=== PATIENT | female | born 1990 | race Caucasian/White ===

== ENCOUNTER 2016-03-09 18:32 | Emergency (ER) | payer MEDICAID ==
--- NOTE | 2016-03-09 19:04 | ER Document Report ---
ED Medical Screen (RME) - General Stated Complaint: POST SURGICAL COMPLICATION Time seen by provider: 19:02 Mode of Arrival: Wheelchair Information source: Patient Notes: 25-year-old female presents to ED for pain and swelling to the left knee, states she had a tendon repair via scope in [place] on Saturday. She is on Percocet 5/325 she's also states she's been keep in her knee elevated and ice as instructed. States the pain is not being relieved with her Percocet. She states knee is warm to touch. I have greeted and performed a rapid initial assessment of this patient. A comprehensive ED assessment and evaluation of the patient, analysis of test results and completion of medical decision making process will be conducted by an additional ED providers. TRAVEL OUTSIDE OF THE [place] IN LAST 30 DAYS: No - Related Data Allergies/Adverse Reactions: aspirin [Aspirin] Allergy (Severe, Verified 12/14/15 02:20) Anaphylaxis azithromycin [From Zithromax] Allergy (Severe, Verified 12/14/15 02:20) Anaphylaxis clindamycin [Clindamycin] Allergy (Severe, Verified 12/14/15 02:20) Anaphylaxis codeine [Codeine] Allergy (Severe, Verified 12/14/15 02:20) Anaphylaxis hydrocodone bitartrate [From Vicodin] Allergy (Severe, Verified 12/14/15 02:20) Anaphylaxis ibuprofen [Ibuprofen] Allergy (Severe, Verified 12/14/15 02:20) Anaphylaxis morphine [Morphine] Allergy (Severe, Verified 12/14/15 02:20) Anaphylaxis Penicillins Allergy (Severe, Verified 12/14/15 02:20) Anaphylaxis propoxyphene napsylate [From Darvocet-N 100] Allergy (Severe, Verified 12/14/15 02:20) Anaphylaxis soy [Soy] Allergy (Severe, Verified 12/14/15 02:20) Anaphylaxis tramadol [Tramadol] Allergy (Severe, Verified 12/14/15 02:20) Anaphylaxis [place] And Derivatives Allergy (Unknown, Verified 12/14/15 02:20) Anaphylaxis tomato [Tomato] Allergy (Unknown, Verified 12/14/15 02:20) Anaphylaxis calcium carbonate [From Aspirin Regimen Esteban/Calcium] Allergy (Verified 02:20) cyclobenzaprine HCl [From Flexeril] Allergy (Verified 12/14/15 02:20) Anaphylaxis latex [Latex] Allergy (Verified 12/14/15 02:20) breaks out in rash Past Medical History - Past Medical History Cardiac Medical History: Denies: Hx Coronary Artery Disease, Hx Heart Attack, Hx Hypertension Pulmonary Medical History: Reports: Hx Asthma - no recent ER visit, Hx Bronchitis, Hx Pneumonia Denies: Hx COPD Neurological Medical History: Reports: Hx Migraine. Denies: Hx Cerebrovascular Accident, Hx Seizures GI Medical History: Reports: Hx Gastroesophageal Reflux Disease Musculoskeltal Medical History: Denies Hx Arthritis Psychiatric Medical History: Reports: Hx Depression Past Surgical History: Reports: Hx Abdominal Surgery, Hx Cholecystectomy, Hx Orthopedic Surgery - ankle x4, Hx Tonsillectomy - Immunizations Immunizations up to date: Yes Hx Diphtheria, Pertussis, Tetanus Vaccination: Yes - 10/12/13
--- NOTE | 2016-03-09 20:39 | ER Document Report ---
ED General - General Chief Complaint: Post Surgical Pain Stated Complaint: POST SURGICAL COMPLICATION Mode of Arrival: Wheelchair Notes: Patient is a 25-year-old female visiting from out of town who presents with concerns of possible infection of her arthroscopic incisional wounds of her left knee. This was done in [place] 4 days ago and she is here in the [place] due to currently visiting friends. States that she had clear drainage from the surgical wounds and was concerned that it may be infected. She was instructed by the nurse call line to come the emergency department for further evaluation. She has had a constant, throbbing pain to the left knee but that this is been unchanged since his surgery. She's been taking Percocet without significant improvement of the pain. Moving the knee worsens the pain. She has not had any spreading redness from the knee, fever or constitutional symptoms. TRAVEL OUTSIDE OF THE [place] IN LAST 30 DAYS: No - Related Data Allergies/Adverse Reactions: aspirin [Aspirin] Allergy (Severe, Verified 12/14/15 02:20) Anaphylaxis azithromycin [From Zithromax] Allergy (Severe, Verified 12/14/15 02:20) Anaphylaxis clindamycin [Clindamycin] Allergy (Severe, Verified 12/14/15 02:20) Anaphylaxis codeine [Codeine] Allergy (Severe, Verified 12/14/15 02:20) Anaphylaxis hydrocodone bitartrate [From Vicodin] Allergy (Severe, Verified 12/14/15 02:20) Anaphylaxis ibuprofen [Ibuprofen] Allergy (Severe, Verified 12/14/15 02:20) Anaphylaxis morphine [Morphine] Allergy (Severe, Verified 12/14/15 02:20) Anaphylaxis Penicillins Allergy (Severe, Verified 12/14/15 02:20) Anaphylaxis propoxyphene napsylate [From Darvocet-N 100] Allergy (Severe, Verified 12/14/15 02:20) Anaphylaxis soy [Soy] Allergy (Severe, Verified 12/14/15 02:20) Anaphylaxis tramadol [Tramadol] Allergy (Severe, Verified 12/14/15 02:20) Anaphylaxis [place] And Derivatives Allergy (Unknown, Verified 12/14/15 02:20) Anaphylaxis tomato [Tomato] Allergy (Unknown, Verified 12/14/15 02:20) Anaphylaxis calcium carbonate [From Aspirin Regimen Esteban/Calcium] Allergy (Verified 02:20) cyclobenzaprine HCl [From Flexeril] Allergy (Verified 12/14/15 02:20) Anaphylaxis latex [Latex] Allergy (Verified 12/14/15 02:20) breaks out in rash NSAIDS (Non-Steroidal Anti-Inflamma Allergy (Verified 03/09/16 19:05) Past Medical History - General Information source: Patient - Social History Smoking Status: Never Smoker Chew tobacco use (# tins/day): No Frequency of alcohol use: None Drug Abuse: None Lives with: Spouse/Significant other Family History: Reviewed & Not Pertinent Patient has suicidal ideation: No Patient has homicidal ideation: No - Past Medical History Cardiac Medical History: Denies: Hx Coronary Artery Disease, Hx Heart Attack, Hx Hypertension Pulmonary Medical History: Reports: Hx Asthma - no recent ER visit, Hx Bronchitis, Hx Pneumonia Denies: Hx COPD Neurological Medical History: Reports: Hx Migraine. Denies: Hx Cerebrovascular Accident, Hx Seizures Renal/ Medical History: Denies: Hx Peritoneal Dialysis GI Medical History: Reports: Hx Gastroesophageal Reflux Disease Musculoskeltal Medical History: Denies Hx Arthritis Psychiatric Medical History: Reports: Hx Depression Past Surgical History: Reports: Hx Abdominal Surgery, Hx Cholecystectomy, Hx Orthopedic Surgery - ankle x4, Hx Tonsillectomy - Immunizations Immunizations up to date: Yes Hx Diphtheria, Pertussis, Tetanus Vaccination: Yes - 10/12/13 Hx Pneumococcal Vaccination: 02/11/13 Review of Systems - Review of Systems Notes: Constitutional: Negative for fever. Cardiovascular: Negative for chest pain. Respiratory: Negative for shortness of breath. Gastrointestinal: Negative for vomiting Musculoskeletal: Negative for back pain. Positive for left knee pain Skin: Negative for rash. Neurological: Negative for weakness or numbness. 10 point ROS negative except as marked above and in HPI. Physical Exam - Vital signs Vitals: Temp Pulse Resp BP Pulse Ox 98.0 F 96 20 136/85 H 98 03/09/16 18:58 03/09/16 18:58 03/09/16 18:58 03/09/16 18:58 03/09/16 18:58 Interpretation: Normal Notes: PHYSICAL EXAMINATION: GENERAL: Well-appearing, well-nourished and in no acute distress. HEAD: Atraumatic, normocephalic. EYES: sclera anicteric, conjunctiva are normal. ENT: Moist mucous membranes. NECK: Normal range of motion LUNGS: Normal work of breathing HEART: 2+ radial pulses bilaterally EXTREMITIES: no pitting or edema. No cyanosis. Well-healed incisional wounds of the left knee without purulent drainage or erythema. NEUROLOGICAL: No focal neurological deficits. Moves all extremities spontaneously and on command. PSYCH: Normal mood, normal affect. SKIN: Warm, Dry, normal turgor, no rashes or lesions noted. Course - Re-evaluation Re-evalutation: 03/10/16 04:25 Patient presents with concerns of possible wound infection after an arthroscopy although there is no evidence of infection on exam. X-ray unremarkable. No significant joint effusion. Full flexion and extension present. Vitals within normal limits. I do not see an indication for further imaging or labs at this time.At this time will discharge with return precautions and follow-up recommendations. Verbal discharge instructions given a the bedside and opportunity for questions given. Medication warnings reviewed. Patient is in agreement with this plan and has verbalized understanding of return precautions and the need for primary care follow-up in the next 24-72 hours. - Vital Signs Vital signs: Temp Pulse Resp BP Pulse Ox 98.0 F 72 16 110/77 98 03/09/16 21:32 03/09/16 21:32 03/09/16 21:32 03/09/16 21:32 03/09/16 21:32 - Diagnostic Test Radiology reviewed: Image reviewed, Reports reviewed Radiology results interpreted by me: 03/10/16 04:26 Left knee x-ray: No acute fracture-dislocation Discharge - Discharge Clinical Impression: Postoperative pain, acute, knee Qualifiers: Laterality: left Qualified Code(s): M25.562 - Pain in left knee Condition: Good Disposition: HOME, SELF-CARE Additional Instructions: Please follow closely with your orthopedic surgeon. Return if you develop a fever greater than 0.4F, spreading redness from the knee wounds, pus from the wounds, increased pain, or any other symptoms that are concerning to you.
[2016-03-09 21:44] VITALS: BP 110/77
== END 2016-03-09 21:45 | disposition home or self-care (01) ==
LOC: ER 18:32
DX: G89.18 Other acute postprocedural pain (principal); M25.562 Pain in left knee; Z88.6 Allergy status to analgesic agent; Z88.3 Allergy status to other anti-infective agents; Z88.0 Allergy status to penicillin; Z91.040 Latex allergy status; Z90.49 Acquired absence of other specified parts of digestive tract
CPT/HCPCS: 99283

== ENCOUNTER 2016-03-12 15:53 | Emergency (ER) | payer MEDICAID ==
--- NOTE | 2016-03-12 16:05 | ER Document Report ---
ED Medical Screen (RME) - General Stated Complaint: KNEE PAIN Notes: Surgery on left knee on Saturday arthroscopic procedure for meniscus and fragment tear. was previously seen on 03/09 states her swelling is the same but the incisions look worse no pain meds I have greeted and performed a rapid initial assessment of this patient. A comprehensive ED assessment and evaluation of the patient, analysis of test results and completion of the medical decision making process will be conducted by additional ED providers. TRAVEL OUTSIDE OF THE [place] IN LAST 30 DAYS: No - Related Data Allergies/Adverse Reactions: aspirin [Aspirin] Allergy (Severe, Verified 03/12/16 16:05) Anaphylaxis azithromycin [From Zithromax] Allergy (Severe, Verified 03/12/16 16:05) Anaphylaxis clindamycin [Clindamycin] Allergy (Severe, Verified 03/12/16 16:05) Anaphylaxis codeine [Codeine] Allergy (Severe, Verified 03/12/16 16:05) Anaphylaxis hydrocodone bitartrate [From Vicodin] Allergy (Severe, Verified 03/12/16 16:05) Anaphylaxis ibuprofen [Ibuprofen] Allergy (Severe, Verified 03/12/16 16:05) Anaphylaxis morphine [Morphine] Allergy (Severe, Verified 03/12/16 16:05) Anaphylaxis Penicillins Allergy (Severe, Verified 03/12/16 16:05) Anaphylaxis propoxyphene napsylate [From Darvocet-N 100] Allergy (Severe, Verified 03/12/16 16:05) Anaphylaxis soy [Soy] Allergy (Severe, Verified 03/12/16 16:05) Anaphylaxis tramadol [Tramadol] Allergy (Severe, Verified 03/12/16 16:05) Anaphylaxis [place] And Derivatives Allergy (Unknown, Verified 03/12/16 16:05) Anaphylaxis tomato [Tomato] Allergy (Unknown, Verified 03/12/16 16:05) Anaphylaxis calcium carbonate [From Aspirin Regimen Esteban/Calcium] Allergy (Verified 16:05) cyclobenzaprine HCl [From Flexeril] Allergy (Verified 03/12/16 16:05) Anaphylaxis latex [Latex] Allergy (Verified 03/12/16 16:05) breaks out in rash NSAIDS (Non-Steroidal Anti-Inflamma Allergy (Verified 03/12/16 16:05) Past Medical History - Past Medical History Cardiac Medical History: Denies: Hx Coronary Artery Disease, Hx Heart Attack, Hx Hypertension Pulmonary Medical History: Reports: Hx Asthma - no recent ER visit, Hx Bronchitis, Hx Pneumonia Denies: Hx COPD Neurological Medical History: Reports: Hx Migraine. Denies: Hx Cerebrovascular Accident, Hx Seizures Renal/ Medical History: Denies: Hx Peritoneal Dialysis GI Medical History: Reports: Hx Gastroesophageal Reflux Disease Musculoskeltal Medical History: Denies Hx Arthritis Psychiatric Medical History: Reports: Hx Depression Past Surgical History: Reports: Hx Abdominal Surgery, Hx Cholecystectomy, Hx Orthopedic Surgery - ankle x4, Hx Tonsillectomy - Immunizations Immunizations up to date: Yes Hx Diphtheria, Pertussis, Tetanus Vaccination: Yes - 10/12/13 Physical Exam - Vital signs Vitals: Temp Pulse Resp BP Pulse Ox 98.0 F 85 16 124/74 98 03/12/16 16:02 03/12/16 16:02 03/12/16 16:02 03/12/16 16:02 03/12/16 16:02 Course - Vital Signs Vital signs: Temp Pulse Resp BP Pulse Ox 98.0 F 85 16 124/74 98 03/12/16 16:02 03/12/16 16:02 03/12/16 16:02 03/12/16 16:02 03/12/16 16:02
--- NOTE | 2016-03-12 17:42 | ER Document Report ---
ED Extremity Problem, Lower - General Chief Complaint: Knee Pain Stated Complaint: KNEE PAIN Time seen by provider: 17:42 Mode of Arrival: Ambulatory Information source: Patient Notes: 25 yo female s/p arthrascopic left knee surgery in [facility]. on 03-07. Flew here on , came to er on 03-09 because of pain, and again today because the stitch 2 sites are burning. No fever. swelling has decreased. Doing her exercises and walking like she is supposed to. TRAVEL OUTSIDE OF THE [place] IN LAST 30 DAYS: No - Related Data Allergies/Adverse Reactions: aspirin [Aspirin] Allergy (Severe, Verified 03/12/16 16:05) Anaphylaxis azithromycin [From Zithromax] Allergy (Severe, Verified 03/12/16 16:05) Anaphylaxis clindamycin [Clindamycin] Allergy (Severe, Verified 03/12/16 16:05) Anaphylaxis codeine [Codeine] Allergy (Severe, Verified 03/12/16 16:05) Anaphylaxis hydrocodone bitartrate [From Vicodin] Allergy (Severe, Verified 03/12/16 16:05) Anaphylaxis ibuprofen [Ibuprofen] Allergy (Severe, Verified 03/12/16 16:05) Anaphylaxis morphine [Morphine] Allergy (Severe, Verified 03/12/16 16:05) Anaphylaxis Penicillins Allergy (Severe, Verified 03/12/16 16:05) Anaphylaxis propoxyphene napsylate [From Darvocet-N 100] Allergy (Severe, Verified 03/12/16 16:05) Anaphylaxis soy [Soy] Allergy (Severe, Verified 03/12/16 16:05) Anaphylaxis tramadol [Tramadol] Allergy (Severe, Verified 03/12/16 16:05) Anaphylaxis [place] And Derivatives Allergy (Unknown, Verified 03/12/16 16:05) Anaphylaxis tomato [Tomato] Allergy (Unknown, Verified 03/12/16 16:05) Anaphylaxis calcium carbonate [From Aspirin Regimen Esteban/Calcium] Allergy (Verified 16:05) cyclobenzaprine HCl [From Flexeril] Allergy (Verified 03/12/16 16:05) Anaphylaxis latex [Latex] Allergy (Verified 03/12/16 16:05) breaks out in rash NSAIDS (Non-Steroidal Anti-Inflamma Allergy (Verified 03/12/16 16:05) Past Medical History - General Information source: Patient - Social History Smoking Status: Never Smoker Chew tobacco use (# tins/day): No Frequency of alcohol use: None Drug Abuse: None Lives with: Family Family History: Reviewed & Not Pertinent Patient has suicidal ideation: No Patient has homicidal ideation: No Pulmonary Medical History: Reports: Hx Asthma - no recent ER visit, Hx Bronchitis, Hx Pneumonia Neurological Medical History: Reports: Hx Migraine Renal/ Medical History: Denies: Hx Peritoneal Dialysis GI Medical History: Reports: Hx Gastroesophageal Reflux Disease Psychiatric Medical History: Reports: Hx Depression Past Surgical History: Reports: Hx Abdominal Surgery, Hx Cholecystectomy, Hx Orthopedic Surgery - ankle x4, Hx Tonsillectomy - Immunizations Immunizations up to date: Yes Hx Diphtheria, Pertussis, Tetanus Vaccination: Yes - 10/12/13 Hx Pneumococcal Vaccination: 02/11/13 Review of Systems - Review of Systems Constitutional: No symptoms reported EENT: No symptoms reported Cardiovascular: No symptoms reported Respiratory: No symptoms reported Gastrointestinal: No symptoms reported Genitourinary: No symptoms reported Female Genitourinary: No symptoms reported Musculoskeletal: See HPI Skin: No symptoms reported Hematologic/Lymphatic: No symptoms reported Neurological/Psychological: No symptoms reported Physical Exam - Vital signs Vitals: Temp Pulse Resp BP Pulse Ox 98.0 F 85 16 124/74 98 03/12/16 16:02 03/12/16 16:02 03/12/16 16:02 03/12/16 16:02 03/12/16 16:02 Interpretation: Normal - General General appearance: Appears well, Alert - HEENT Head: Normocephalic, Atraumatic Eyes: Normal Conjunctiva: Normal Pupils: PERRL Neck: Supple - Respiratory Respiratory status: No respiratory distress Chest status: Nontender Breath sounds: Normal Chest palpation: Normal - Cardiovascular Rhythm: Regular Heart sounds: Normal auscultation Murmur: No - Back Back: Normal, Nontender - Extremities General upper extremity: Normal inspection, Nontender, Normal color, Normal ROM , Normal temperature General lower extremity: Normal inspection, Nontender, Normal color, Normal ROM , Normal temperature, Normal weight bearing. No: Reshma's sign Knee: Tender - minimal posterior left knee, not much larger than the right. minimal tender mid calf which is not swollen. the 2 arthascopic sites are minimally pink, no cellulitis, drainage or swelling Calf: Tender - see above - Neurological Neuro grossly intact: Yes Cognition: Normal Orientation: AAOx4 [place] Coma Scale Eye Opening: Spontaneous [place] Coma Scale Verbal: Oriented [place] Coma Scale Motor: Obeys Commands [place] Coma Scale Total: 15 Speech: Normal Motor strength normal: LUE, RUE, LLE, RLE Sensory: Normal - Psychological Associated symptoms: Normal affect, Normal mood - Skin Skin Temperature: Warm Skin Moisture: Dry Skin Color: Normal Notes: see above Course - Re-evaluation Re-evalutation: 03/12/16 18:09 Venous Doppler ultrasound was negative according to Dr. Rachid Byrd. I have consulted with the supervisory physician per [facility] Guidelines., Dr. Klein. - Vital Signs Vital signs: Temp Pulse Resp BP Pulse Ox 98.1 F 71 16 111/72 100 03/12/16 18:22 03/12/16 18:22 03/12/16 18:22 03/12/16 18:22 03/12/16 18:22 Discharge - Discharge Clinical Impression: post op pain and swelling Condition: Good Disposition: HOME, SELF-CARE Instructions: Ice & Elevation ([facility]), Acetaminophen Additional Instructions: elevate the knee ice to er if worse tylenol for discomfort venous doppler ultrasound is negative.
[2016-03-12 18:24] VITALS: BP 111/72
--- NOTE | 2016-03-13 10:33 | XCELERA REPORT ---
[address] [address] Lower Extremity Venous Evaluation Name: AYO SAPP Age: 25 yrs Gender: Female : 1990 Patient Status: Preadmit Patient Location: ER Study Date: 03/12/2016 04:58 PM Procedure: Color flow and duplex imaging of the veins of the left lower extremity as well as the right Common Femoral vein. Reason For Study: left LE swelling and pain, recent knee surgery Ordering Physician: ASHLEE HOLLOWAY PA-C Performed By: Lubna Jones Right Sided Venous Evaluation The right common femoral vein is fully compressible. Spontaneous and phasic flow is present in the right common femoral vein. Left Sided Venous Evaluation Normal vessel filling wall to wall, compression and augmentation as well as Colour flow down to the infrageniculate veins. Critical Findings Discussed with Naila Lino in the ER. Interpretation Summary No duplex evidence of DVT or obstruction in the left lower extremity nor in the right Common Femoral vein. : ASHLEE HOLLOWAY PA-C > Rachid Byrd
== END 2016-03-12 18:24 | disposition home or self-care (01) ==
LOC: ER 15:53
DX: G89.18 Other acute postprocedural pain (principal); M25.562 Pain in left knee; Z88.6 Allergy status to analgesic agent; Z88.3 Allergy status to other anti-infective agents; Z88.0 Allergy status to penicillin; Z91.040 Latex allergy status; Z90.49 Acquired absence of other specified parts of digestive tract
CPT/HCPCS: 93971; 99283

== ENCOUNTER 2016-05-10 15:01 | Emergency (ER) | payer MEDICAID ==
--- NOTE | 2016-05-10 15:27 | ER Document Report ---
ED Medical Screen (RME) - General Stated Complaint: LOWER ABDOMINAL PAIN Time seen by provider: 15:25 Mode of Arrival: Ambulatory Information source: Patient Notes: 25-year-old female presents to ED for bilateral lower abdominal pain for the last week. Burning and itching with urination she states she also has frequency and urgency with urination. Last menstrual period was 04/27/2016. I have greeted and performed a rapid initial assessment of this patient. A comprehensive ED assessment and evaluation of the patient, analysis of test results and completion of medical decision making process will be conducted by an additional ED providers. TRAVEL OUTSIDE OF THE [place] IN LAST 30 DAYS: No - Related Data Allergies/Adverse Reactions: aspirin [Aspirin] Allergy (Severe, Verified 05/10/16 15:24) Anaphylaxis azithromycin [From Zithromax] Allergy (Severe, Verified 05/10/16 15:24) Anaphylaxis clindamycin [Clindamycin] Allergy (Severe, Verified 05/10/16 15:24) Anaphylaxis codeine [Codeine] Allergy (Severe, Verified 05/10/16 15:24) Anaphylaxis hydrocodone bitartrate [From Vicodin] Allergy (Severe, Verified 05/10/16 15:24) Anaphylaxis ibuprofen [Ibuprofen] Allergy (Severe, Verified 05/10/16 15:24) Anaphylaxis morphine [Morphine] Allergy (Severe, Verified 05/10/16 15:24) Anaphylaxis Penicillins Allergy (Severe, Verified 05/10/16 15:24) Anaphylaxis propoxyphene napsylate [From Darvocet-N 100] Allergy (Severe, Verified 05/10/16 15:24) Anaphylaxis soy [Soy] Allergy (Severe, Verified 05/10/16 15:24) Anaphylaxis tramadol [Tramadol] Allergy (Severe, Verified 05/10/16 15:24) Anaphylaxis [place] And Derivatives Allergy (Unknown, Verified 05/10/16 15:24) Anaphylaxis tomato [Tomato] Allergy (Unknown, Verified 05/10/16 15:24) Anaphylaxis calcium carbonate [From Aspirin Regimen Esteban/Calcium] Allergy (Verified 15:24) cyclobenzaprine HCl [From Flexeril] Allergy (Verified 05/10/16 15:24) Anaphylaxis latex [Latex] Allergy (Verified 05/10/16 15:24) breaks out in rash NSAIDS (Non-Steroidal Anti-Inflamma Allergy (Verified 05/10/16 15:24) Past Medical History - Past Medical History Cardiac Medical History: Denies: Hx Coronary Artery Disease, Hx Heart Attack, Hx Hypertension Pulmonary Medical History: Reports: Hx Asthma - no recent ER visit, Hx Bronchitis, Hx Pneumonia Denies: Hx COPD Neurological Medical History: Reports: Hx Migraine. Denies: Hx Cerebrovascular Accident, Hx Seizures Renal/ Medical History: Denies: Hx Peritoneal Dialysis GI Medical History: Reports: Hx Gastroesophageal Reflux Disease Musculoskeltal Medical History: Denies Hx Arthritis Psychiatric Medical History: Reports: Hx Depression Past Surgical History: Reports: Hx Abdominal Surgery, Hx Cholecystectomy, Hx Orthopedic Surgery - ankle x4, Hx Tonsillectomy - Immunizations Immunizations up to date: Yes Hx Diphtheria, Pertussis, Tetanus Vaccination: Yes - 10/12/13 Physical Exam - Vital signs Vitals: Temp Pulse Resp BP Pulse Ox 98.5 F 80 17 112/75 100 05/10/16 15:19 05/10/16 15:19 05/10/16 15:19 05/10/16 15:19 05/10/16 15:19 Course - Vital Signs Vital signs: Temp Pulse Resp BP Pulse Ox 98.5 F 80 17 112/75 100 05/10/16 15:19 05/10/16 15:19 05/10/16 15:19 05/10/16 15:19 05/10/16 15:19
[2016-05-10 15:57] LABS: APPEARANCE,URINE SLIGHTLY-CLOUDY; BILIRUBIN,URINE NEGATIVE (NEGATIVE); GLUCOSE, URINE NEGATIVE (NEGATIVE); KETONES,URINE NEGATIVE (NEGATIVE); LEUKOCYTE ESTERASE,URINE MODERATE (NEGATIVE); NITRITE,URINE NEGATIVE (NEGATIVE); PROTEIN,URINE NEGATIVE (NEGATIVE); URINE SPECIFIC GRAVITY 1.024; UROBILINOGEN,URINE NEGATIVE mg/dL (<2.0)
--- NOTE | 2016-05-10 16:58 | ER Document Report ---
HPI - HPI Patient complains to provider of: lower abdominal pain with dysuria Onset: Last week Onset/Duration: Persistent Quality of pain: Burning Pain Level: 5 Context: Patient complains of burning with urination, urinary frequency, spotting and low pelvic pain for the past week. Patient denies any fever, nausea, or vomiting. Patient is concerned that she may have a UTI Associated Symptoms: Other - Pelvic pain, urinary symptoms. denies: Fever Exacerbated by: Denies Relieved by: Denies Similar symptoms previously: Yes Recently seen / treated by doctor: No - ROS ROS below otherwise negative: Yes Systems Reviewed and Negative: Yes All other systems reviewed and negative - CONSTITUTIONAL Constitutional: DENIES: Fever, Chills - RESPIRATORY Respiratory: DENIES: Coughing - GASTROINTESTINAL Gastrointestinal: REPORTS: Abdominal Pain - URINARY Urinary: REPORTS: Dysuria - REPRODUCTIVE LMP: april 27 Reproductive: DENIES: : - MUSCULOSKELETAL Musculoskeletal: DENIES: Back Pain - DERM Skin Color: Normal Skin Problems: None Past Medical History - General Information source: Patient Last Menstrual Period: 04/27/2016 - Social History Smoking Status: Never Smoker Chew tobacco use (# tins/day): Yes Frequency of alcohol use: None Drug Abuse: None Occupation: construction Family History: Reviewed & Not Pertinent Patient has suicidal ideation: No Patient has homicidal ideation: No Pulmonary Medical History: Reports: Hx Asthma - no recent ER visit, Hx Bronchitis, Hx Pneumonia Denies: Hx COPD Neurological Medical History: Reports: Hx Migraine. Denies: Hx Cerebrovascular Accident, Hx Seizures Renal/ Medical History: Denies: Hx Peritoneal Dialysis GI Medical History: Reports: Hx Gastroesophageal Reflux Disease Musculoskeltal Medical History: Denies Hx Arthritis Psychiatric Medical History: Reports: Hx Depression Past Surgical History: Reports: Hx Abdominal Surgery, Hx Cholecystectomy, Hx Orthopedic Surgery - ankle x4, Hx Tonsillectomy - Immunizations Immunizations up to date: Yes Hx Diphtheria, Pertussis, Tetanus Vaccination: Yes - 10/12/13 Hx Pneumococcal Vaccination: 02/11/13 Vertical Provider Document - CONSTITUTIONAL Agree With Documented VS: Yes Exam Limitations: No Limitations General Appearance: WD/WN, No Apparent Distress - INFECTION CONTROL TRAVEL OUTSIDE OF THE [place] IN LAST 30 DAYS: No - HEENT HEENT: Atraumatic, Normocephalic - NECK Neck: Normal Inspection, Supple - RESPIRATORY Respiratory: Breath Sounds Normal, No Respiratory Distress, Chest Non-Tender O2 Sat by Pulse Oximetry: 100 - CARDIOVASCULAR Cardiovascular: Regular Rate, Regular Rhythm, No Murmur - GI/ABDOMEN Gastrointestinal: Abdomen Soft, Abdomen Tender - Lower pelvic, No Organomegaly - REPRODUCTIVE Female Genitalia: Abnormal Inspection, CMT, Adnexal Pain-Right, Adnexal Pain- Left Notes: Patient with vaginal discharge - BACK Back: Abnormal Inspection - Lumbar paraspinal tenderness. negative: CVA Tenderness-Right, CVA Tenderness-Left - MUSCULOSKELETAL/EXTREMETIES Musculoskeletal/Extremeties: MAEW - NEURO Level of Consciousness: Awake, Alert, Appropriate Motor/Sensory: No Motor Deficit - DERM Integumentary: Warm, Dry, No Rash Course - Vital Signs Vital signs: Temp Pulse Resp BP Pulse Ox 98.5 F 80 17 112/75 100 05/10/16 15:19 05/10/16 15:19 05/10/16 15:19 05/10/16 15:19 05/10/16 15:19 - Laboratory Laboratory results interpreted by me: 05/10/16 15:30 Ur Leukocyte Esterase MODERATE H Urine Ascorbic Acid 40 H 05/10/16 19:57 Labs- Entire Visit 05/10/16 05/10/16 05/10/16 15:30 17:18 17:18 Urine Color YELLOW Urine Appearance SLIGHTLY-CLOUDY Urine pH 5.0 Ur Specific Perley 1.024 Urine Protein NEGATIVE Urine Glucose (UA) NEGATIVE Urine Ketones NEGATIVE Urine Blood NEGATIVE Urine Nitrite NEGATIVE Urine Bilirubin NEGATIVE Urine Urobilinogen NEGATIVE Ur Leukocyte Esterase MODERATE H Urine WBC (Auto) 5 Urine RBC (Auto) 1 Squamous Epi Cells Auto <1 Urine Ascorbic Acid 40 H Urine HCG, Qual NEGATIVE Epi Cells (Wet Prep) 3+ EPITHELIALS SEEN Bacteria (Wet Prep) 3+ BACTERIA SEEN Trichomonas (Wet Prep) TRICHOMONAS SEEN Vaginal WBC 2+ WBCS SEEN Vaginal RBC 2+ RBCS SEEN Vaginal Yeast YEAST SEEN Chlamydia DNA (PCR) NOT DETECTED N.gonorrhoeae DNA (PCR) NOT DETECTED - Diagnostic Test Radiology reviewed: Reports reviewed Discharge - Discharge Clinical Impression: Trichomoniasis, Urinary symptom or sign, Vagina, candidiasis, Nausea, PID ( acute pelvic inflammatory disease) Condition: Stable Disposition: HOME, SELF-CARE Instructions: Abdominal Pain ([facility]), Trichomonas Infection ([facility]), Vaginal Yeast Infection ([facility]), Metronidazole ([facility]), Rocephin ([facility]), Doxycycline ([facility]), Pelvic Inflammatory Disease ([facility]) Additional Instructions: Return immediately for any new or worsening symptoms Followup with your primary care provider, call tomorrow to make a followup appointment Have your partner seek treatment for trichomonas Prescriptions: Doxycycline Hyclate 100 mg PO BID #28 capsule Fluconazole [Diflucan] 150 mg PO ONCE PRN #1 tablet PRN Reason: Ondansetron HCl [Zofran 4 mg Tablet] 1 - 2 tab PO Q6 PRN #15 tablet PRN Reason: Forms: Return to Work Referrals: [facility] [Provider Group] - Follow up as needed [facility] [Provider Group] - Follow up as needed
[2016-05-10] MEDS ORDERED: CEFTRIAXONE INJ 1000 MG VIAL IM ONE (17:20)
[2016-05-10] MEDS ORDERED: LIDOCAINE 1% INJ-PF (10 MG/ML) 30 ML SDV INJ ONE (17:20)
[2016-05-10] MEDS ORDERED: DOXYCYCLINE HYCLATE 100 MG TABLET PO ONE (17:21)
[2016-05-10] MEDS ORDERED: METRONIDAZOLE 500 MG TABLET PO ONE (18:13)
[2016-05-10 19:00] LABS: CHLAM PCR NOT DETECTED (NOT DETECT)
[2016-05-10] MEDS ORDERED: ONDANSETRON 4 MG TAB.RAPDIS PO ONE (19:55)
[2016-05-10 20:16] VITALS: BP 108/66
== END 2016-05-10 20:18 | disposition home or self-care (01) ==
LOC: ER 15:01
DX: A59.9 Trichomoniasis, unspecified (principal); R39.198 Other difficulties with micturition; B37.3 Candidiasis of vulva and vagina; R11.0 Nausea; N73.0 Acute parametritis and pelvic cellulitis; R10.30 Lower abdominal pain, unspecified; R30.0 Dysuria; R35.0 Frequency of micturition; R10.2 Pelvic and perineal pain
CPT/HCPCS: 99284; 96372; 87210; 81025; 81001; 87491; 87591; 76830; 93976; S0119; J0696

== ENCOUNTER 2016-06-08 13:18 | Emergency (ER) | payer MEDICAID ==
[2016-06-08 13:47] VITALS: BP 120/73
[2016-06-08] MEDS ORDERED: PREDNISONE 20 MG TABLET PO ONE (15:38)
[2016-06-08] MEDS ORDERED: DIPHENHYDRAMINE HCL 25 MG CAPSULE PO ONE (15:38)
[2016-06-08] MEDS ORDERED: DOXYCYCLINE HYCLATE 100 MG TABLET PO ONE (15:42)
--- NOTE | 2016-06-08 15:48 | ER Document Report ---
ED Skin Rash/Insect Bite/Abscs - General Chief Complaint: Insect Bite Stated Complaint: POSSIBLE ALLERGIC REACTION Mode of Arrival: Ambulatory Information source: Patient TRAVEL OUTSIDE OF THE [place] IN LAST 30 DAYS: No - HPI Patient complains to provider of: Insect bite Notes: Patient arrives with complaints of possible insect bite. The patient has significant allergies and has had anaphylactic reactions in the past. States that she thought she was bit by something on her right side last evening. Was itchy. She took some Benadryl. She states that this morning she woke up she felt like she was having some trouble breathing and the rash seemed to get somewhat worse on her side. She states that redness now hurts but also continues to itch. She was having some difficulty breathing earlier and felt nauseous and felt like she was having an anaphylactic reaction so she gave herself an epi injection. This was approximately 2 hours ago. She states that it did improve her symptoms. Currently she complains of itching and pain to the redness to her right side. No fevers. No abdominal pain. No vomiting. She denies any lip or tongue swelling. No difficulty swallowing. No other complaints at this time. - Related Data Allergies/Adverse Reactions: aspirin [Aspirin] Allergy (Severe, Verified 06/08/16 13:42) Anaphylaxis azithromycin [From Zithromax] Allergy (Severe, Verified 06/08/16 13:42) Anaphylaxis clindamycin [Clindamycin] Allergy (Severe, Verified 06/08/16 13:42) Anaphylaxis codeine [Codeine] Allergy (Severe, Verified 06/08/16 13:42) Anaphylaxis hydrocodone bitartrate [From Vicodin] Allergy (Severe, Verified 06/08/16 13:42) Anaphylaxis ibuprofen [Ibuprofen] Allergy (Severe, Verified 06/08/16 13:42) Anaphylaxis morphine [Morphine] Allergy (Severe, Verified 06/08/16 13:42) Anaphylaxis Penicillins Allergy (Severe, Verified 06/08/16 13:42) Anaphylaxis propoxyphene napsylate [From Darvocet-N 100] Allergy (Severe, Verified 06/08/16 13:42) Anaphylaxis soy [Soy] Allergy (Severe, Verified 06/08/16 13:42) Anaphylaxis tramadol [Tramadol] Allergy (Severe, Verified 06/08/16 13:42) Anaphylaxis Kimball And Derivatives Allergy (Unknown, Verified 06/08/16 13:42) Anaphylaxis tomato [Tomato] Allergy (Unknown, Verified 06/08/16 13:42) Anaphylaxis calcium carbonate [From Aspirin Regimen Esteban/Calcium] Allergy (Verified 13:42) cyclobenzaprine HCl [From Flexeril] Allergy (Verified 06/08/16 13:42) Anaphylaxis latex [Latex] Allergy (Verified 06/08/16 13:42) breaks out in rash NSAIDS (Non-Steroidal Anti-Inflamma Allergy (Verified 06/08/16 13:42) Past Medical History - Social History Smoking Status: Unknown if Ever Smoked Family History: Reviewed & Not Pertinent Patient has suicidal ideation: No Patient has homicidal ideation: No - Past Medical History Cardiac Medical History: Denies: Hx Coronary Artery Disease, Hx Heart Attack, Hx Hypertension Pulmonary Medical History: Reports: Hx Asthma - no recent ER visit, Hx Bronchitis, Hx Pneumonia Denies: Hx COPD Neurological Medical History: Reports: Hx Migraine. Denies: Hx Cerebrovascular Accident, Hx Seizures Renal/ Medical History: Denies: Hx Peritoneal Dialysis GI Medical History: Reports: Hx Gastroesophageal Reflux Disease Musculoskeltal Medical History: Denies Hx Arthritis Psychiatric Medical History: Reports: Hx Depression Past Surgical History: Reports: Hx Abdominal Surgery, Hx Cholecystectomy, Hx Orthopedic Surgery - ankle x4, Hx Tonsillectomy - Immunizations Immunizations up to date: Yes Hx Diphtheria, Pertussis, Tetanus Vaccination: Yes - 10/12/13 Hx Pneumococcal Vaccination: 02/11/13 Review of Systems - Review of Systems -: Yes All other systems reviewed and negative Physical Exam - Vital signs Vitals: Temp Pulse Resp BP Pulse Ox 98.4 F 83 18 120/73 100 06/08/16 13:41 06/08/16 13:41 06/08/16 13:41 06/08/16 13:41 06/08/16 13:41 - Notes Notes: GENERAL: alert, cooperative, nontoxic, no distress. HEAD: normocephalic, atraumatic EYES: conjunctiva pink without discharge, no external redness or swelling. EARS: no external swelling, no external redness NOSE: atraumatic, no external swelling MOUTH/THROAT: mucous membranes moist and pink, posterior pharynx without erythema, swelling, exudate. No trismus or drooling. No angioedema. NECK: soft, supple, full range of motion, no meningismus. CHEST: no distress, lungs clear and equal throughout. No wheezing, rales, rhonchi. CARDIAC: regular rate and rhythm, no murmur, normal capillary refill, normal pulses. No peripheral edema noted. ABDOMEN: Soft, nontender. BACK: full range of motion, no CVA tenderness. EXTREMITIES: full range of motion of all extremities. No redness, no swelling. NEURO: alert and oriented -3, no focal deficits, full range of motion of all extremities. PYSCH: appropriate mood, affect. Patient is cooperative. SKIN: pink, warm, dry. Patient noted have a red circular area to her right side. It's warm to the touch. It is tender to touch and slightly indurated. It is no fluctuant abscess identified. No drainage. No other rash identified. Course - Re-evaluation Re-evalutation: 06/08/16 15:46 Patient is nontoxic appearing with stable vitals. The patient was bitten by something yesterday and is concerned she is having a mild anaphylactic reaction to it and she was feeling like she was having some trouble breathing earlier. She gave herself an epi injection and felt better. At this time she is in no distress, no wheezing, no lip or tongue swelling, vital signs are normal she is not hypoxic or in any distress. She is noted to have a red area to the right side. This looks as though it could be a localized allergic reaction, the fact it is somewhat indurated and tender as well, infection cannot be completely ruled out. The patient has an extensive allergy list. Patient will be given doxycycline for possible cellulitis as well as sent home on prednisone for possible allergic reaction. She was instructed to take antihistamines around- the-clock as well. I will refill her EpiPen. She is instructed to follow-up with her family doctor at the next available appointment. Follow up sooner or she has any worsening symptoms or any further concerns. The patient's emergency department workup and current diagnosis were explained to the patient and or family. Follow-up instructions were provided. Medications if prescribed were discussed. Instructions for when to return to the emergency department including specific worrisome symptoms were discussed with the patient and/or family. - Vital Signs Vital signs: Temp Pulse Resp BP Pulse Ox 98.4 F 83 18 120/73 100 06/08/16 13:41 06/08/16 13:41 06/08/16 13:41 06/08/16 13:41 06/08/16 13:41 Discharge - Discharge Clinical Impression: Allergic reaction Qualifiers: Encounter type: initial encounter Qualified Code(s): T78.40XA - Allergy, unspecified, initial encounter Cellulitis Qualifiers: Site of cellulitis: trunk Site of cellulitis of trunk: abdominal wall Qualified Code(s): L03.311 - Cellulitis of abdominal wall Condition: Stable Disposition: HOME, SELF-CARE Instructions: Acute Allergic Reaction ([facility]), Cellulitis ([facility]) Additional Instructions: Take medications as prescribed. Follow-up with your doctor at the next available appointment for recheck. Follow-up sooner for worsening redness, increased pain, fever, difficulty breathing, difficulty swallowing, or any further concerns. Prescriptions: Doxycycline Hyclate 100 mg PO BID #20 capsule Epinephrine [Adrenaclick] 0.3 mg IJ PRN PRN #2 kit PRN Reason: Prednisone 60 mg PO DAILY #15 tablet
== END 2016-06-08 15:58 | disposition home or self-care (01) ==
LOC: ER 13:18
DX: T78.40XA Allergy, unspecified, initial encounter (principal); L03.311 Cellulitis of abdominal wall; X58.XXXA Exposure to other specified factors, initial encounter; J45.909 Unspecified asthma, uncomplicated; Z88.8 Allergy status to other drugs, medicaments and biological substances; Z91.040 Latex allergy status; Z87.892 Personal history of anaphylaxis; Z88.6 Allergy status to analgesic agent; Z88.1 Allergy status to other antibiotic agents; Z88.5 Allergy status to narcotic agent; Z88.0 Allergy status to penicillin; Z91.018 Allergy to other foods
CPT/HCPCS: 99281

== ENCOUNTER 2016-07-21 13:41 | Emergency (ER) | payer MEDICAID ==
--- NOTE | 2016-07-21 15:08 | ER Document Report ---
ED Medical Screen (RME) - General Chief Complaint: Headache Stated Complaint: LEFT EYE IRRITATION Time Seen by Provider: 07/21/16 15:00 Mode of Arrival: Ambulatory Information source: Patient Notes: This is a 26-year-old female who has a history of migraines who presents with severe left-sided headache. She states this is different than her previous migraines. The pain began yesterday. She has had nausea but no vomiting. She does report left eye discomfort as well as difficulty seeing out of the left eye. No neck pain or stiffness. I have greeted and performed a rapid initial assessment of this patient. A comprehensive ED assessment and evaluation of the patient, analysis of test results and completion of the medical decision making process will be conducted by additional ED providers. TRAVEL OUTSIDE OF THE [place] IN LAST 30 DAYS: No - Related Data Allergies/Adverse Reactions: aspirin [Aspirin] Allergy (Severe, Verified 07/21/16 13:45) Anaphylaxis azithromycin [From Zithromax] Allergy (Severe, Verified 07/21/16 13:45) Anaphylaxis clindamycin [Clindamycin] Allergy (Severe, Verified 07/21/16 13:45) Anaphylaxis codeine [Codeine] Allergy (Severe, Verified 07/21/16 13:45) Anaphylaxis hydrocodone bitartrate [From Vicodin] Allergy (Severe, Verified 07/21/16 13:45) Anaphylaxis ibuprofen [Ibuprofen] Allergy (Severe, Verified 07/21/16 13:45) Anaphylaxis morphine [Morphine] Allergy (Severe, Verified 07/21/16 13:45) Anaphylaxis Penicillins Allergy (Severe, Verified 07/21/16 13:45) Anaphylaxis propoxyphene napsylate [From Darvocet-N 100] Allergy (Severe, Verified 07/21/16 13:45) Anaphylaxis soy [Soy] Allergy (Severe, Verified 07/21/16 13:45) Anaphylaxis tramadol [Tramadol] Allergy (Severe, Verified 07/21/16 13:45) Anaphylaxis Cobre And Derivatives Allergy (Unknown, Verified 07/21/16 13:45) Anaphylaxis tomato [Tomato] Allergy (Unknown, Verified 07/21/16 13:45) Anaphylaxis calcium carbonate [From Aspirin Regimen Esteban/Calcium] Allergy (Verified 13:45) cyclobenzaprine HCl [From Flexeril] Allergy (Verified 07/21/16 13:45) Anaphylaxis latex [Latex] Allergy (Verified 07/21/16 13:45) breaks out in rash NSAIDS (Non-Steroidal Anti-Inflamma Allergy (Verified 07/21/16 13:45) Past Medical History - Past Medical History Cardiac Medical History: Denies: Hx Coronary Artery Disease, Hx Heart Attack, Hx Hypertension Pulmonary Medical History: Reports: Hx Asthma - no recent ER visit, Hx Bronchitis, Hx Pneumonia Denies: Hx COPD Neurological Medical History: Reports: Hx Migraine. Denies: Hx Cerebrovascular Accident, Hx Seizures Renal/ Medical History: Denies: Hx Peritoneal Dialysis GI Medical History: Reports: Hx Gastroesophageal Reflux Disease Musculoskeltal Medical History: Denies Hx Arthritis Psychiatric Medical History: Reports: Hx Depression Past Surgical History: Reports: Hx Abdominal Surgery, Hx Cholecystectomy, Hx Orthopedic Surgery - ankle x4, Hx Tonsillectomy - Immunizations Immunizations up to date: Yes Hx Diphtheria, Pertussis, Tetanus Vaccination: Yes - 10/12/13 Physical Exam - Vital signs Vitals: Temp Pulse Resp BP Pulse Ox 98.1 F 84 20 125/80 99 07/21/16 13:45 07/21/16 13:45 07/21/16 13:45 07/21/16 13:45 07/21/16 13:45 - General General appearance: Appears well Notes: pleasant and conversant but appears uncomfortable - HEENT Head: Normocephalic, Atraumatic Eyes: Normal Conjunctiva: Normal. No: Injected Cornea: Normal Extraocular movements intact: Yes Pupils: PERRL - Neurological Neuro grossly intact: Yes Cognition: Normal Orientation: AAOx4 Course - Vital Signs Vital signs: Temp Pulse Resp BP Pulse Ox 98.1 F 84 20 125/80 99 07/21/16 13:45 07/21/16 13:45 07/21/16 13:45 07/21/16 13:45 07/21/16 13:45
[2016-07-21] MEDS ORDERED: NORMAL SALINE 1000 ML 1,000 ML IV ONE (15:09)
[2016-07-21] MEDS ORDERED: METOCLOPRAMIDE HCL INJ/PF 10 MG/2 ML SDV IV ONE (15:10)
[2016-07-21] MEDS ORDERED: DIPHENHYDRAMINE HCL 50 MG/ML VIAL IV ONE (15:10)
[2016-07-21 15:28] LABS: ABSOLUTE BASOPHILS # (AUTO) 0.1 10^3/uL (0.0-0.2); ABSOLUTE EOSINOPHILS # (AUTO) 0.2 10^3/uL (0.0-0.6); ABSOLUTE LYMPHOCYTES (AUTO) 3.8 10^3/uL (0.5-4.7); ABSOLUTE MONOCYTES (AUTO) 0.7 10^3/uL (0.1-1.4); BASOPHILS % (AUTO) 0.7 % (0-2); EOSINOPHILS % (AUTO) 1.8 % (0-6); HEMATOCRIT 41.1 % (36.0-47.0); HEMOGLOBIN 13.6 g/dL (12.0-15.5); HGB HCT DIFFERENCE -0.3; LYMPHOCYTES % (AUTO) 32.2 % (13-45); MEAN CORPUSCULAR HEMOGLOBIN 27.2 pg (27.0-33.4); MEAN CORPUSCULAR HGB CONC 33.1 g/dL (32.0-36.0); MEAN CORPUSCULAR VOLUME 82 fl (80-97); MONOCYTES % (AUTO) 5.7 % (3-13); RED CELL DISTRIBUTION WIDTH 14.6 % (11.5-14.0); SEGMENTED NEUTROPHILS % (AUTO) 59.6 % (42-78); WHITE BLOOD COUNT 11.8 10^3/uL (4.0-10.5)
--- NOTE | 2016-07-21 15:29 | RADIOLOGY REPORT (SQ) ---
EXAM DESCRIPTION: CT HEAD WITHOUT COMPLETED DATE/TIME: 07/21/2016 3:20 pm REASON FOR STUDY: severe L side OVIEDO COMPARISON: None. TECHNIQUE: Axial images acquired through the brain without intravenous contrast. Images reviewed wi th bone, brain and subdural windows. Images stored on PACS. All CT scanners at this facility use dose modulation, iterative reconstruction, and/or weight based d osing when appropriate to reduce radiation dose to as low as reasonably achievable (ALARA). [facility]: Dose Right [facility]: CareDose [facility]: Dose Right [facility]: Teradose 4D [facility]: Mobibeam RADIATION DOSE: 64.61 mGy. LIMITATIONS: None. FINDINGS: VENTRICLES: Normal size and contour. CEREBRUM: No masses. No hemorrhage. No midline shift. Normal nguyen/white matter differentiation. N o evidence for acute infarction. CEREBELLUM: No masses. No hemorrhage. No alteration of density. No evidence for acute infarction. EXTRAAXIAL SPACES: No fluid collections. No masses. ORBITS AND GLOBE: No intra- or extraconal masses. Normal contour of globe without masses. CALVARIUM: No fracture. PARANASAL SINUSES: No fluid or mucosal thickening. SOFT TISSUES: No mass or hematoma. OTHER: No other significant finding. IMPRESSION: NORMAL BRAIN CT WITHOUT CONTRAST. TECHNICAL DOCUMENTATION: JOB ID: [id number] Quality ID # [id number]: Final reports with documentation of one or more dose reduction techniques (e.g., Au tomated exposure control, adjustment of the mA and/or kV according to patient size, use of iterative reconstruction technique) 2010 [employer]- All Rights Reserved
[2016-07-21 15:45] LABS: ALANINE AMINOTRANSFERASE 39 U/L (9-52); ALBUMIN 3.9 g/dL (3.5-5.0); ALKALINE PHOSPHATASE 53 U/L (38-126); ANION GAP 11 (5-19); ASPARTATE AMINO TRANSFERASE 20 U/L (14-36); BILIRUBIN,DIRECT 0.2 mg/dL (0.0-0.4); BILIRUBIN,TOTAL 0.6 mg/dL (0.2-1.3); BLOOD UREA NITROGEN 8 mg/dL (7-20); CALCIUM 9.4 mg/dL (8.4-10.2); CARBON DIOXIDE 26 mmol/L (22-30); CHLORIDE 102 mmol/L (98-107); CREATININE RESULT 0.72 mg/dL (0.52-1.25); GLUCOSE 87 mg/dL (75-110); POTASSIUM 4.3 mmol/L (3.6-5.0); TOTAL PROTEIN 7.2 g/dL (6.3-8.2)
[2016-07-21] MEDS ORDERED: KETOROLAC TROMETHAMINE INJ/PF 30 MG/1 ML SDV IV ONE (16:11)
[2016-07-21] MEDS ORDERED: CYCLOBENZAPRINE HCL 10 MG TABLET PO ONE (16:11)
[2016-07-21] MEDS ORDERED: BUTALB/ACETAMINOPHEN/CAFFEINE 1 TAB EACH PO ONE (16:11)
--- NOTE | 2016-07-21 16:12 | ER Document Report ---
ED Headache - General Chief Complaint: Headache Stated Complaint: LEFT EYE IRRITATION Time Seen by Provider: 07/21/16 15:00 Mode of Arrival: Ambulatory Information source: Patient Notes: Is a 26-year-old female with a history of migraines who presents to the ER today for 2 weeks of a migraine on the left side of her face, with pressure behind the left eye. She states that this feels like her normal migraines. Patient states that her migraines do usually affect her eyes and this manner. She usually takes "controlled substances" for her migraines that she says. She states that these include Fioricet, Percocet, Flexeril. She states that she is out of these medications. She admits to some nausea but denies any vomiting. TRAVEL OUTSIDE OF THE [place] IN LAST 30 DAYS: No - Related Data Allergies/Adverse Reactions: aspirin [Aspirin] Allergy (Severe, Verified 07/21/16 13:45) Anaphylaxis azithromycin [From Zithromax] Allergy (Severe, Verified 07/21/16 13:45) Anaphylaxis clindamycin [Clindamycin] Allergy (Severe, Verified 07/21/16 13:45) Anaphylaxis codeine [Codeine] Allergy (Severe, Verified 07/21/16 13:45) Anaphylaxis hydrocodone bitartrate [From Vicodin] Allergy (Severe, Verified 07/21/16 13:45) Anaphylaxis ibuprofen [Ibuprofen] Allergy (Severe, Verified 07/21/16 13:45) Anaphylaxis morphine [Morphine] Allergy (Severe, Verified 07/21/16 13:45) Anaphylaxis Penicillins Allergy (Severe, Verified 07/21/16 13:45) Anaphylaxis propoxyphene napsylate [From Darvocet-N 100] Allergy (Severe, Verified 07/21/16 13:45) Anaphylaxis soy [Soy] Allergy (Severe, Verified 07/21/16 13:45) Anaphylaxis tramadol [Tramadol] Allergy (Severe, Verified 07/21/16 13:45) Anaphylaxis [place] And Derivatives Allergy (Unknown, Verified 07/21/16 13:45) Anaphylaxis tomato [Tomato] Allergy (Unknown, Verified 07/21/16 13:45) Anaphylaxis calcium carbonate [From Aspirin Regimen Esteban/Calcium] Allergy (Verified 13:45) cyclobenzaprine HCl [From Flexeril] Allergy (Verified 07/21/16 13:45) Anaphylaxis latex [Latex] Allergy (Verified 07/21/16 13:45) breaks out in rash NSAIDS (Non-Steroidal Anti-Inflamma Allergy (Verified 07/21/16 13:45) Past Medical History - General Information source: Patient - Social History Smoking Status: Never Smoker Frequency of alcohol use: Rare Drug Abuse: None Family History: Reviewed & Not Pertinent Patient has suicidal ideation: No Patient has homicidal ideation: No - Past Medical History Cardiac Medical History: Denies: Hx Coronary Artery Disease, Hx Heart Attack, Hx Hypertension Pulmonary Medical History: Reports: Hx Asthma - no recent ER visit, Hx Bronchitis, Hx Pneumonia Denies: Hx COPD Neurological Medical History: Reports: Hx Migraine. Denies: Hx Cerebrovascular Accident, Hx Seizures Renal/ Medical History: Denies: Hx Peritoneal Dialysis GI Medical History: Reports: Hx Gastroesophageal Reflux Disease Musculoskeltal Medical History: Denies Hx Arthritis Psychiatric Medical History: Reports: Hx Depression Past Surgical History: Reports: Hx Abdominal Surgery, Hx Cholecystectomy, Hx Orthopedic Surgery - ankle x4, Hx Tonsillectomy - Immunizations Immunizations up to date: Yes Hx Diphtheria, Pertussis, Tetanus Vaccination: Yes - 10/12/13 Hx Pneumococcal Vaccination: 02/11/13 Review of Systems - Review of Systems Constitutional: No symptoms reported EENT: See HPI Cardiovascular: No symptoms reported Respiratory: No symptoms reported Gastrointestinal: No symptoms reported Genitourinary: No symptoms reported Female Genitourinary: No symptoms reported Musculoskeletal: No symptoms reported Skin: No symptoms reported Hematologic/Lymphatic: No symptoms reported Neurological/Psychological: See HPI Physical Exam - Vital signs Vitals: Temp Pulse Resp BP Pulse Ox 98.1 F 84 20 125/80 99 07/21/16 13:45 07/21/16 13:45 07/21/16 13:45 07/21/16 13:45 07/21/16 13:45 - Notes Notes: PHYSICAL EXAMINATION: GENERAL: Laying in dark room with sunglasses, but in no acute distress. HEAD: Atraumatic, normocephalic. EYES: Pupils equal round and reactive to light, extraocular movements intact, sclera anicteric, conjunctiva are normal. ENT: ear canals without erythema or foreign body, TMs pearly murillo with good bony landmarks, nares patent, oropharynx clear without exudates. Moist mucous membranes. NECK: Normal range of motion, supple without lymphadenopathy LUNGS: CTAB and equal. No wheezes rales or rhonchi. HEART: Regular rate and rhythm without murmurs EXTREMITIES: Normal range of motion, no pitting edema. No cyanosis. NEUROLOGICAL: Cranial nerves grossly intact. Normal sensory/motor exams. PSYCH: Normal mood, normal affect. SKIN: Warm, Dry, normal turgor, no rashes or lesions noted - HEENT Visual acuity- Right eye: 20/25 Visual acuity- Left eye: 20/70 Visual acuity- Both eyes: 20/30 Corrective lenses worn: No Course - Re-evaluation Re-evalutation: 07/21/16 16:51 Lab work is unremarkable today, patient got multiple medications, noncontrolled for migraine which did relieve her pain. Patient stated multiple times that this migraine is consistent with her normal migraines and that her eye pressure is also consistent with her migraines. I see no reason today for further testing. I did not give her controlled substances today as they are not appropriate for migraine. - Vital Signs Vital signs: Temp Pulse Resp BP Pulse Ox 98.1 F 84 20 125/80 99 07/21/16 13:45 07/21/16 13:45 07/21/16 13:45 07/21/16 13:45 07/21/16 13:45 - Laboratory Result Diagrams: 07/21/16 15:12 07/21/16 15:12 Laboratory results interpreted by me: 07/21/16 15:12 WBC 11.8 H RDW 14.6 H Discharge - Discharge Clinical Impression: Migraine Qualifiers: Migraine type: unspecified Status migrainosus presence: without status migrainosus Intractability: not intractable Qualified Code(s): G43.909 - Migraine, unspecified, not intractable, without status migrainosus Condition: Stable Disposition: HOME, SELF-CARE Instructions: Use of Diphenhydramine, Headache ([facility]), Toradol Injection ([facility]) Additional Instructions: Controlled substances such as Percocet are not appropriate for migraine treatment. Return immediately for any new or worsening symptoms. Follow up with primary care provider, call tomorrow to make followup appointment.
[2016-07-21 17:35] VITALS: BP 121/72
== END 2016-07-21 17:33 | disposition home or self-care (01) ==
LOC: ER 13:41
DX: G43.909 Migraine, unspecified, not intractable, without status migrainosus (principal); R11.0 Nausea; Z88.8 Allergy status to other drugs, medicaments and biological substances; Z91.040 Latex allergy status; Z87.892 Personal history of anaphylaxis; Z88.6 Allergy status to analgesic agent; Z88.1 Allergy status to other antibiotic agents; Z88.5 Allergy status to narcotic agent; Z88.0 Allergy status to penicillin; Z91.018 Allergy to other foods
CPT/HCPCS: 99284; 96361; 96374; 96375; 36415; 85025; 80053; 70450; J3490; J1200; J1885; J2765; J7030

== ENCOUNTER → 2016-12-27 | Outpatient (CLI) | payer SELFPAY ==
--- NOTE | 2016-12-27 16:53 | RADIOLOGY REPORT (SQ) ---
EXAM DESCRIPTION: U/S [id number] TRNABD 1GES W/ODOP COMPLETED DATE/TIME: 12/27/2016 4:38 pm REASON FOR STUDY: FIRST TRIMESTER SIZE AND DATE Z34.81 ENCOUNTER FOR SUPRVSN OF NORMAL , F IRST TRIM COMPARISON: None. TECHNIQUE: Trans abdominal static and realtime grayscale images acquired of the pelvis. Additional s elected spectral and color Doppler images recorded. All images stored on PACs. bHCG: Not available. LIMITATIONS: None. FINDINGS: FETUS: Living intrauterine . EGA: 8 weeks 6 days by crown-rump length ERVIN: 08/02/2017 FHR: 172 beats per minute. SUBCHORIONIC BLEED: None SIZE OF BLEED: Not applicable. UTERUS: No masses. No anomalies. Uterus is 10.4 x 8 x 7.5 cm in size. CERVICAL LENGTH: 2.4 cm in length Closed. RIGHT ADNEXA: Normal ovary with normal vascular flow. Right ovary 4.7 x 3.5 x 2.2 cm in size with a 3.8 cm cyst No adnexal free fluid. No adnexal masses. LEFT ADNEXA: Not visualized FREE FLUID: None. OTHER: No other significant finding. IMPRESSION: LIVING INTRAUTERINE . EGA 8 weeks 6 days by crown-rump length Nonvisualization of the left adnexa due to bowel gas Trimester of : First - 0 to 13 weeks. TECHNICAL DOCUMENTATION: JOB ID: [id number] [employer]- All Rights Reserved
== END ==
LOC: RAD 15:23
PROVIDERS: ATTEND Nurse Practitioner Women's Health
DX: Z34.81 Encounter for supervision of other normal pregnancy, first trimester (principal)
CPT/HCPCS: 76801

== ENCOUNTER 2017-02-08 14:55 | Emergency (ER) | payer SELFPAY ==
[2017-02-08] MEDS ORDERED: ACETAMINOPHEN 325 MG TABLET PO ONE (15:49)
--- NOTE | 2017-02-08 15:53 | ER Document Report ---
ED Headache - General Chief Complaint: Headache Stated Complaint: COUGH, HEADACHE Time Seen by Provider: 02/08/17 15:48 Mode of Arrival: Ambulatory Information source: Patient Notes: 26 years old female presents today with a headache claiming that it is a migraine, only thing works is Percocet. And also states she is 15 weeks . Headache was described as massive, but she appears to be comfortable. Associated with slight nausea. No fever chills or other constitutional symptoms. TRAVEL OUTSIDE OF THE [place] IN LAST 30 DAYS: No - Related Data Allergies/Adverse Reactions: aspirin [Aspirin] Allergy (Severe, Verified 07/21/16 13:45) Anaphylaxis azithromycin [From Zithromax] Allergy (Severe, Verified 07/21/16 13:45) Anaphylaxis clindamycin [Clindamycin] Allergy (Severe, Verified 07/21/16 13:45) Anaphylaxis codeine [Codeine] Allergy (Severe, Verified 07/21/16 13:45) Anaphylaxis hydrocodone bitartrate [From Vicodin] Allergy (Severe, Verified 07/21/16 13:45) Anaphylaxis ibuprofen [Ibuprofen] Allergy (Severe, Verified 07/21/16 13:45) Anaphylaxis morphine [Morphine] Allergy (Severe, Verified 07/21/16 13:45) Anaphylaxis Penicillins Allergy (Severe, Verified 07/21/16 13:45) Anaphylaxis propoxyphene napsylate [From Darvocet-N 100] Allergy (Severe, Verified 07/21/16 13:45) Anaphylaxis soy [Soy] Allergy (Severe, Verified 07/21/16 13:45) Anaphylaxis tramadol [Tramadol] Allergy (Severe, Verified 07/21/16 13:45) Anaphylaxis [place] And Derivatives Allergy (Unknown, Verified 07/21/16 13:45) Anaphylaxis tomato [Tomato] Allergy (Unknown, Verified 07/21/16 13:45) Anaphylaxis calcium carbonate [From Aspirin Regimen Esteban/Calcium] Allergy (Verified 13:45) cyclobenzaprine HCl [From Flexeril] Allergy (Verified 07/21/16 13:45) Anaphylaxis latex [Latex] Allergy (Verified 07/21/16 13:45) breaks out in rash NSAIDS (Non-Steroidal Anti-Inflamma Allergy (Verified 07/21/16 13:45) Past Medical History - Social History Smoking Status: Smoker,Current Status Unk Family History: Reviewed & Not Pertinent - Past Medical History Cardiac Medical History: Denies: Hx Coronary Artery Disease, Hx Heart Attack, Hx Hypertension Pulmonary Medical History: Reports: Hx Asthma - no recent ER visit, Hx Bronchitis, Hx Pneumonia Denies: Hx COPD Neurological Medical History: Reports: Hx Migraine. Denies: Hx Cerebrovascular Accident, Hx Seizures Renal/ Medical History: Denies: Hx Peritoneal Dialysis GI Medical History: Reports: Hx Gastroesophageal Reflux Disease Musculoskeltal Medical History: Denies Hx Arthritis Psychiatric Medical History: Reports: Hx Depression Past Surgical History: Reports: Hx Abdominal Surgery, Hx Cholecystectomy, Hx Orthopedic Surgery - ankle x4, Hx Tonsillectomy - Immunizations Immunizations up to date: Yes Hx Diphtheria, Pertussis, Tetanus Vaccination: Yes - 10/12/13 Hx Pneumococcal Vaccination: 02/11/13 Review of Systems - Review of Systems Notes: REVIEW OF SYSTEMS: CONSTITUTIONAL : Denies fever, chills, or sweats. Denies recent illness. EENT: Denies eye, ear, throat, or mouth pain or symptoms. Denies nasal or sinus congestion or discharge. Denies throat, tongue, or mouth swelling or difficulty swallowing. CARDIOVASCULAR: Denies chest pain. Denies palpitations or racing or irregular heart beat. Denies ankle edema. RESPIRATORY: Denies cough, cold, or chest congestion. Denies shortness of breath, difficulty breathing, or wheezing. GASTROINTESTINAL: Denies abdominal pain or distention. Denies nausea, vomiting , or diarrhea. Denies blood in vomitus, stools, or per rectum. Denies black, tarry stools. Denies constipation. GENITOURINARY: Denies difficulty urinating, painful urination, burning, frequency, blood in urine, or discharge. FEMALE GENITOURINARY: Denies vaginal bleeding, heavy or abnormal periods, irregular periods. Denies vaginal discharge or odor. MUSCULOSKELETAL: Denies back or neck pain or stiffness. Denies joint pain or swelling. SKIN: Denies rash, lesions or sores. HEMATOLOGIC : Denies easy bruising or bleeding. LYMPHATIC: Denies swollen, enlarged glands. NEUROLOGICAL: Denies confusion or altered mental status. Denies passing out or loss of consciousness. Denies dizziness or lightheadedness. Denies headache. Denies weakness or paralysis or loss of use of either side. Denies problems with gait or speech. Denies sensory loss, numbness, or tingling. Denies seizures. PSYCHIATRIC: Denies anxiety or stress. Denies depression, suicidal ideation, or homicidal ideation. ALL OTHER SYSTEMS REVIEWED AND NEGATIVE. PHYSICAL EXAMINATION: GENERAL: Well-appearing, well-nourished and in no acute distress. HEAD: Atraumatic, normocephalic. EYES: Pupils equal round and reactive to light, extraocular movements intact, conjunctiva are normal. ENT: Nares patent, oropharynx clear without exudates. Moist mucous membranes. NECK: Normal range of motion, supple without lymphadenopathy LUNGS: Breath sounds clear to auscultation bilaterally and equal. No wheezes rales or rhonchi. HEART: Regular rate and rhythm without murmurs ABDOMEN: Soft, nontender, nondistended abdomen. No guarding, no rebound. No masses appreciated. Female : deferred Musculoskeletal: Normal range of motion, no pitting or edema. No cyanosis. NEUROLOGICAL: Cranial nerves grossly intact. Normal speech, normal gait. Normal sensory, motor exams PSYCH: Normal mood, normal affect. SKIN: Warm, Dry, normal turgor, no rashes or lesions noted. Dictation was performed using [email or web address] voice recognition software Physical Exam - Vital signs Vitals: Temp Pulse Resp BP Pulse Ox 98.0 F 84 16 122/73 100 02/08/17 15:02 02/08/17 15:02 02/08/17 15:02 02/08/17 15:02 02/08/17 15:02 Course - Re-evaluation Re-evalutation: 02/08/17 15:51 Patient was explained that taking Percocet and during is bad thing for the child as well as was told very clearly I do not prescribe Percocet from a migraine type of headaches. - Vital Signs Vital signs: Temp Pulse Resp BP Pulse Ox 98.0 F 84 16 122/73 100 02/08/17 15:02 02/08/17 15:02 02/08/17 15:02 02/08/17 15:02 02/08/17 15:02 Discharge - Discharge Clinical Impression: Headache Qualifiers: Headache type: unspecified Headache chronicity pattern: episodic headache Intractability: not intractable Qualified Code(s): R51 - Headache Condition: Fair Disposition: HOME, SELF-CARE Instructions: Headache ([facility]) Prescriptions: Promethazine HCl 25 mg PO TID #20 tablet
[2017-02-08 17:01] VITALS: BP 123/75
== END 2017-02-08 16:26 | disposition home or self-care (01) ==
LOC: ER 14:55
DX: O26.892 Other specified pregnancy related conditions, second trimester (principal); R51 Headache; O99.512 Diseases of the respiratory system complicating pregnancy, second trimester; J45.909 Unspecified asthma, uncomplicated; Z3A.15 15 weeks gestation of pregnancy; Z91.040 Latex allergy status; Z88.8 Allergy status to other drugs, medicaments and biological substances; Z87.892 Personal history of anaphylaxis; Z88.6 Allergy status to analgesic agent; Z88.1 Allergy status to other antibiotic agents; Z88.0 Allergy status to penicillin; Z91.018 Allergy to other foods
CPT/HCPCS: 99283

== ENCOUNTER 2017-02-11 11:21 | Emergency (ER) | payer SELFPAY ==
--- NOTE | 2017-02-11 11:51 | ER Document Report ---
ED Respiratory Problem - General Chief Complaint: Cough Stated Complaint: COUGH Time Seen by Provider: 02/11/17 11:35 Mode of Arrival: Ambulatory Information source: Patient, [facility] Records Notes: This 26-year-old female patient comes emergency room complaining of cough, congestion, migraine headache, nausea vomiting and laryngitis with shortness of breath. She was seen here on 02/08/2017 with viral upper respiratory tract symptoms. [facility] and has moved back to this area just recently. She reports nausea vomiting stopped last night. She is taking Zofran for that that was prescribed by her OB doctor in [place]. She also has Diclegis at home to take for nausea vomiting. He reports her sputum has been clear to yellow and occasionally blood-tinged. She further reports her fever broke last night. She has an extensive list of allergies it precludes almost anything besides Tylenol and narcotics for treating her migraine headaches and pain issues. TRAVEL OUTSIDE OF THE [place] IN LAST 30 DAYS: No - Related Data Allergies/Adverse Reactions: aspirin [Aspirin] Allergy (Severe, Verified 02/11/17 11:22) Anaphylaxis azithromycin [From Zithromax] Allergy (Severe, Verified 02/11/17 11:22) Anaphylaxis clindamycin [Clindamycin] Allergy (Severe, Verified 02/11/17 11:22) Anaphylaxis codeine [Codeine] Allergy (Severe, Verified 02/11/17 11:22) Anaphylaxis hydrocodone bitartrate [From Vicodin] Allergy (Severe, Verified 02/11/17 11:22) Anaphylaxis ibuprofen [Ibuprofen] Allergy (Severe, Verified 02/11/17 11:22) Anaphylaxis morphine [Morphine] Allergy (Severe, Verified 02/11/17 11:22) Anaphylaxis Penicillins Allergy (Severe, Verified 02/11/17 11:22) Anaphylaxis propoxyphene napsylate [From Darvocet-N 100] Allergy (Severe, Verified 02/11/17 11:22) Anaphylaxis soy [Soy] Allergy (Severe, Verified 02/11/17 11:22) Anaphylaxis tramadol [Tramadol] Allergy (Severe, Verified 02/11/17 11:22) Anaphylaxis [place] And Derivatives Allergy (Unknown, Verified 02/11/17 11:22) Anaphylaxis tomato [Tomato] Allergy (Unknown, Verified 02/11/17 11:22) Anaphylaxis calcium carbonate [From Aspirin Regimen Esteban/Calcium] Allergy (Verified 11:22) cyclobenzaprine HCl [From Flexeril] Allergy (Verified 02/11/17 11:22) Anaphylaxis latex [Latex] Allergy (Verified 02/11/17 11:22) breaks out in rash NSAIDS (Non-Steroidal Anti-Inflamma Allergy (Verified 02/11/17 11:22) Past Medical History - General Information source: Patient, [facility] Records - Social History Smoking Status: Never Smoker Cigarette use (# per day): No Chew tobacco use (# tins/day): No Smoking Education Provided: No Frequency of alcohol use: None Drug Abuse: None Lives with: Family Family History: Reviewed & Not Pertinent Patient has suicidal ideation: No Patient has homicidal ideation: No Pulmonary Medical History: Reports: Hx Asthma - no recent ER visit, Hx Bronchitis, Hx Pneumonia Neurological Medical History: Reports: Hx Migraine Endocrine Medical History: Reports: None Renal/ Medical History: Reports: None GI Medical History: Reports: Hx Gastroesophageal Reflux Disease Musculoskeltal Medical History: Reports None Psychiatric Medical History: Reports: Hx Depression Past Surgical History: Reports: Hx Cholecystectomy, Hx Orthopedic Surgery - ankle x4, Hx Tonsillectomy - Immunizations Immunizations up to date: Yes Hx Diphtheria, Pertussis, Tetanus Vaccination: Yes - 10/12/13 Hx Pneumococcal Vaccination: 02/11/13 Review of Systems - Review of Systems Constitutional: See HPI, Fever EENT: Nose congestion Respiratory: Cough, Short of breath, Sputum Gastrointestinal: See HPI, Nausea, Vomiting Female Genitourinary: See HPI, Musculoskeletal: No symptoms reported Skin: No symptoms reported Hematologic/Lymphatic: No symptoms reported Neurological/Psychological: No symptoms reported Physical Exam - Vital signs Vitals: Temp Pulse Resp BP Pulse Ox 98.6 F 89 18 126/78 H 98 02/11/17 11:27 02/11/17 11:27 02/11/17 11:27 02/11/17 11:27 02/11/17 11:27 Interpretation: Normal - General General appearance: Appears well, Alert In distress: None - HEENT Head: Normocephalic, Atraumatic Eyes: Normal Pupils: PERRL External canal: Normal Tympanic membrane: Retracted Nasal: Normal Mouth/Lips: Normal Mucous membranes: Normal Neck: Normal Notes: The patient does appear to be developing laryngitis with this upper respiratory tract infection - Respiratory Respiratory status: No respiratory distress Breath sounds: Nonproductive cough, Other - There is some coarse breath sounds when I have the patient take a deep breath and cough but there is no wheeze or rhonchi heard. - Cardiovascular Rhythm: Regular Heart sounds: Normal auscultation Murmur: No - Abdominal Inspection: Gravid female Bowel sounds: Normal Tenderness: Nontender - Extremities General upper extremity: Normal inspection General lower extremity: Normal inspection - Neurological Neuro grossly intact: Yes - Psychological Associated symptoms: Normal affect, Normal mood Course - Vital Signs Vital signs: Temp Pulse Resp BP Pulse Ox 98.6 F 89 18 126/78 H 98 02/11/17 11:27 02/11/17 11:27 02/11/17 11:27 02/11/17 11:27 02/11/17 11:27 - Laboratory Result Diagrams: 02/11/17 11:56 Laboratory results interpreted by me: 02/11/17 11:56 RDW 15.2 H - Diagnostic Test Radiology reviewed: Image reviewed, Reports reviewed - X-rays unremarkable. Discharge - Discharge Clinical Impression: Viral upper respiratory tract infection with cough, Laryngitis Migraine headache Qualifiers: Migraine type: other Status migrainosus presence: without status migrainosus Intractability: not intractable Qualified Code(s): G43.809 - Other migraine, not intractable, without status migrainosus Condition: Stable Disposition: HOME, SELF-CARE Additional Instructions: Upper Respiratory Illness: You have a viral infection of the respiratory passages -- a "cold." This common infection causes nasal congestion, drainage, and often sore throat and cough. It is caused by a virus and is highly contagious. The disease usually lasts a week or more, though the worst symptoms are usually over in 3 or 4 days. There is no "cure" for the viral infection -- it must run its course. If there is a complication, such as bacterial infection in the nose, sinuses, middle ear, or bronchial tubes, antibiotics may be required, but antibiotics won 't affect the virus. If you smoke, you should STOP!! Drink plenty of fluids. A humidifier may help. An expectorant medication or decongestant may make you more comfortable. Use acetaminophen or ibuprofen for fever or aches. See the doctor if fever persists over two or three days, if there is any significant worsening of your symptoms, or if you simply fail to improve as expected. Laryngitis: You are developing laryngitis. This is an inflammation of the vocal cords which leads to inability to speak normally. Any irritation to the airway can cause laryngitis. Causes include virus infection, smoke inhalation, allergy, or even trauma due to excessive talking or shouting. Rest your voice. Any vibration of the vocal cords increases and prolongs the swelling. Humidity is helpful, especially cool mist. Avoid dust, chemical fumes, and smoke. Avoid decongestants and antihistamines -- these will make you worse. You can expect to recover completely in a few days. See the physician if new symptoms develop, such as high fever, productive cough, shortness of breath, or if you do not improve within a few days. //////////////////////////////////////////////////////////////////////////////// //////////////////////////////////////////////////////////////////////////////// Coughing and talking make the laryngitis worse. Try to limit talking as much as possible. Fluids, prednisone, and Robitussin-DM should help suppress your cough. You should drink plenty of fluids and get plenty of rest. You will be prescribed a short course of prednisone to suppress the inflammation in your bronchial tubes and larynx. This will help with controlling your cough and help your laryngitis clear up quicker. Take Robitussin-DM to help suppress your cough. Follow-up with a local medical doctor if not improving over the next several days. Prescriptions: Prednisone [Deltasone 10 mg Tablet] 10 mg PO ASDIR PRN #21 tablet PRN Reason:
[2017-02-11 12:09] LABS: ABSOLUTE LYMPHOCYTES (AUTO) 1.5 10^3/uL (0.5-4.7); ABSOLUTE MONOCYTES (AUTO) 0.6 10^3/uL (0.1-1.4); ABSOLUTE NEUT (AUTO) 4.2 10^3/uL (1.7-8.2); BASOPHILS % (AUTO) 0.5 % (0-2); EOSINOPHILS % (AUTO) 0.4 % (0-6); HEMATOCRIT 36.6 % (36.0-47.0); HEMOGLOBIN 12.8 g/dL (12.0-15.5); LYMPHOCYTES % (AUTO) 23.6 % (13-45); MEAN CORPUSCULAR HEMOGLOBIN 29.3 pg (27.0-33.4); MEAN CORPUSCULAR HGB CONC 34.9 g/dL (32.0-36.0); MEAN CORPUSCULAR VOLUME 84 fl (80-97); MONOCYTES % (AUTO) 9.6 % (3-13); PLATELET COUNT 286 10^3/uL (150-450); RED BLOOD COUNT 4.38 10^6/uL (3.72-5.28); RED CELL DISTRIBUTION WIDTH 15.2 % (11.5-14.0); SEGMENTED NEUTROPHILS % (AUTO) 65.9 % (42-78); TOTAL CELLS COUNTED % (AUTO) 100 %; WHITE BLOOD COUNT 6.3 10^3/uL (4.0-10.5)
--- NOTE | 2017-02-11 12:35 | RADIOLOGY REPORT (SQ) ---
EXAM DESCRIPTION: CHEST PA/LAT COMPLETED DATE/TIME: 02/11/2017 12:17 pm REASON FOR STUDY: cough, congestion, 16 weeks COMPARISON: None. EXAM PARAMETERS: NUMBER OF VIEWS: two views TECHNIQUE: Digital Frontal and Lateral radiographic views of the chest acquired. RADIATION DOSE: NA LIMITATIONS: none FINDINGS: LUNGS AND PLEURA: No opacities, masses or pneumothorax. No pleural effusion. MEDIASTINUM AND HILAR STRUCTURES: No masses or contour abnormalities. HEART AND VASCULAR STRUCTURES: Heart normal size. No evidence for failure. BONES: No acute findings. HARDWARE: None in the chest. OTHER: No other significant finding. IMPRESSION: NO SIGNIFICANT RADIOGRAPHIC FINDING IN THE CHEST. TECHNICAL DOCUMENTATION: JOB ID: [id number] [employer]- All Rights Reserved
[2017-02-11 12:56] VITALS: BP 124/80
== END 2017-02-11 12:50 | disposition home or self-care (01) ==
LOC: ER 11:21
DX: O99.519 Diseases of the respiratory system complicating pregnancy, unspecified trimester (principal); J04.0 Acute laryngitis; J45.909 Unspecified asthma, uncomplicated; O99.350 Diseases of the nervous system complicating pregnancy, unspecified trimester; G43.909 Migraine, unspecified, not intractable, without status migrainosus; O21.9 Vomiting of pregnancy, unspecified; O26.899 Other specified pregnancy related conditions, unspecified trimester; R05 Cough; R06.02 Shortness of breath; Z91.040 Latex allergy status; Z87.892 Personal history of anaphylaxis; Z88.6 Allergy status to analgesic agent; Z88.8 Allergy status to other drugs, medicaments and biological substances; Z88.1 Allergy status to other antibiotic agents; Z88.5 Allergy status to narcotic agent; Z88.0 Allergy status to penicillin; Z91.018 Allergy to other foods; Z3A.00 Weeks of gestation of pregnancy not specified
CPT/HCPCS: 36415; 71046; 85025; 99283

== ENCOUNTER 2017-03-23 15:50 | Outpatient (CLI) | payer SELFPAY ==
[2017-03-23 16:47] LABS: AMORPHOUS SEDIMENT,URINE TRACE /HPF; APPEARANCE,URINE CLOUDY; BILIRUBIN,URINE NEGATIVE (NEGATIVE); GLUCOSE, URINE NEGATIVE (NEGATIVE); KETONES,URINE NEGATIVE (NEGATIVE); LEUKOCYTE ESTERASE,URINE NEGATIVE (NEGATIVE); NITRITE,URINE NEGATIVE (NEGATIVE); PROTEIN,URINE NEGATIVE (NEGATIVE); URINE SPECIFIC GRAVITY 1.017; UROBILINOGEN,URINE NEGATIVE mg/dL (<2.0)
[2017-03-23 16:49] LABS: COLOR,URINE YELLOW
[2017-03-23 16:54] LABS: URINE AMPHETAMINES SCREEN NEGATIVE; URINE BARBITURATES SCREEN NEGATIVE; URINE BENZODIAZEPINES SCREEN NEGATIVE; URINE COCAINE SCREEN NEGATIVE; URINE MARIJUANA (THC) SCREEN NEGATIVE; URINE METHADONE SCREEN NEGATIVE; URINE PHENCYCLIDINE SCREEN NEGATIVE
== END 2017-03-23 17:18 | disposition home or self-care (01) ==
LOC: LC 15:50
PROVIDERS: ATTEND Obstetrics & Gynecology
PROC: 4A1HXCZ Monitoring of Products of Conception, Cardiac Rate, External Approach (ICD-10-PCS; principal; 2017-03-23)
DX: O26.892 Other specified pregnancy related conditions, second trimester (principal); R51 Headache; R10.9 Unspecified abdominal pain; M54.9 Dorsalgia, unspecified; Z3A.21 21 weeks gestation of pregnancy
CPT/HCPCS: 80307; 81001

== ENCOUNTER → 2017-03-28 | Outpatient (CLI) | payer SELFPAY ==
--- NOTE | 2017-03-28 14:39 | RADIOLOGY REPORT (SQ) ---
EXAM DESCRIPTION: U/S OB 14+ TRNABD 1GES W/O DOP COMPLETED DATE/TIME: 03/28/2017 1:49 pm REASON FOR STUDY: ENCTR FOR SUPERVISION OF OTHER NORMAL , 2ND TRIMESTER (Z34.82) Z34.82 EN COUNTER FOR SUPRVSN OF NORMAL , SECOND TRI COMPARISON: 12/27/2016 TECHNIQUE: Static and Dynamic grayscale imaging performed of gravid uterus using transabdominal appr oach. Additional selected color Doppler and spectral images recorded. All stored on PACS. LIMITATIONS: None. FINDINGS: EGA: 22 weeks 3 days ERVIN: 07/29/2017 EFW: 514 grams PERCENTILE: 45th NATALIE: 6.0 PLACENTA: Posterior. GRADE: I PRESENTATION: Breech. ANATOMY: HEART RATE: New 157 beats per minute. FOUR CHAMBER HEART: Visualized. THREE VESSEL CORD: Yes. CORD INSERTION: Visualized. KIDNEYS AND BLADDER: Visualized. Appear normal. STOMACH: Visualized. Appears normal. SPINE: Normal as visualized. BRAIN AND LATERAL VENTRICLES: Visualized. Appear normal. OTHER: No other significant finding. MATERNAL ADNEXA: Maternal ovaries not visualized. CERVICAL LENGTH: 3.0 cm Closed. OTHER: No other significant finding. IMPRESSION: LIVING INTRAUTERINE . ESTIMATED GESTATIONAL AGE 22 weeks 3 days NO VISUALIZED ANOMALIES. Trimester of : Second trimester - 13 weeks 1 day to 27 weeks 6 days. TECHNICAL DOCUMENTATION: JOB ID: [id number] [employer]- All Rights Reserved
== END ==
LOC: RAD 12:39
PROVIDERS: ATTEND Nurse Practitioner Women's Health
DX: Z34.82 Encounter for supervision of other normal pregnancy, second trimester (principal)
CPT/HCPCS: 76805

== ENCOUNTER 2017-03-29 18:16 | Emergency (ER) | payer MEDICAID ==
[2017-03-29 18:32] VITALS: BP 103/70
--- NOTE | 2017-03-29 19:37 | ER Document Report ---
ED Medical Screen (RME) - General Chief Complaint: Fall Stated Complaint: FALL BACK PAIN Time Seen by Provider: 03/29/17 19:32 Mode of Arrival: Ambulatory Information source: Patient Notes: This is a 26-year-old female she is 3 para 2, she is 22 weeks . Patient presents with pain from the lower back and down the right buttock. The patient states that she fell on [employer] Saturday (early March) when she slipped in the rain. She states that she did not fall and hit the ground but she hit the railing ride on the left buttock. She had followed up with her doctor at the health department and had the fetus checked a few days later. She subsequently developed some contractions last week and was evaluated by labor and delivery here at this hospital. However, throughout this time she is had persistent low back pain radiating down her right buttock. She denies any numbness to the inner aspect of the thighs. She denies any urinary or fecal incontinence. She denies any urinary retention. She finds it difficult to walk because of the pain but there is no motor weakness. She denies any fevers or chills. She is not having any contractions today. TRAVEL OUTSIDE OF THE [place] IN LAST 30 DAYS: No - HPI Onset: Other - March Onset/Duration: Gradual Quality of pain: Dull Severity: Moderate Pain Level: 2 Associated Symptoms: denies: Chest pain, Shortness of breath Exacerbated by: Movement Relieved by: Remaining still Similar symptoms previously: Yes Recently seen / treated by doctor: Yes - Related Data Smoking: Non-smoker Frequency of alcohol use: None Drug Abuse: None Allergies/Adverse Reactions: aspirin [Aspirin] Allergy (Severe, Verified 03/29/17 18:17) Anaphylaxis azithromycin [From Zithromax] Allergy (Severe, Verified 03/29/17 18:17) Anaphylaxis clindamycin [Clindamycin] Allergy (Severe, Verified 03/29/17 18:17) Anaphylaxis codeine [Codeine] Allergy (Severe, Verified 03/29/17 18:17) Anaphylaxis hydrocodone bitartrate [From Vicodin] Allergy (Severe, Verified 03/29/17 18:17) Anaphylaxis ibuprofen [Ibuprofen] Allergy (Severe, Verified 03/29/17 18:17) Anaphylaxis morphine [Morphine] Allergy (Severe, Verified 03/29/17 18:17) Anaphylaxis Penicillins Allergy (Severe, Verified 03/29/17 18:17) Anaphylaxis propoxyphene napsylate [From Darvocet-N 100] Allergy (Severe, Verified 03/29/17 18:17) Anaphylaxis soy [Soy] Allergy (Severe, Verified 03/29/17 18:17) Anaphylaxis tramadol [Tramadol] Allergy (Severe, Verified 03/29/17 18:17) Anaphylaxis [place] And Derivatives Allergy (Unknown, Verified 03/29/17 18:17) Anaphylaxis tomato [Tomato] Allergy (Unknown, Verified 03/29/17 18:17) Anaphylaxis calcium carbonate [From Aspirin Regimen Esteban/Calcium] Allergy (Verified 18:17) cyclobenzaprine HCl [From Flexeril] Allergy (Verified 03/29/17 18:17) Anaphylaxis latex [Latex] Allergy (Verified 03/29/17 18:17) breaks out in rash NSAIDS (Non-Steroidal Anti-Inflamma Allergy (Verified 03/29/17 18:17) Past Medical History - General Information source: Patient - Social History Cigarette use (# per day): No Chew tobacco use (# tins/day): No Frequency of alcohol use: None Drug Abuse: None Lives with: Family Family history: None Pulmonary Medical History: Reports: Hx Asthma - no recent ER visit, Hx Bronchitis, Hx Pneumonia Neurological Medical History: Reports: Hx Migraine Renal/ Medical History: Denies: Hx Peritoneal Dialysis GI Medical History: Reports: Hx Gastroesophageal Reflux Disease Psychiatric Medical History: Reports: Hx Depression Past Surgical History: Reports: Hx Cholecystectomy, Hx Orthopedic Surgery - ankle x4, Hx Tonsillectomy - Immunizations Immunizations up to date: Yes Hx Diphtheria, Pertussis, Tetanus Vaccination: Yes - 10/12/13 Review of Systems - Review of Systems Notes: Review of systems: Constitutional: Denies fever, chills. EENT: Denies ear pain, sinus tenderness, throat pain, throat swelling. Cardiovascular: Denies chest pain, palpitations, dyspnea or edema. Respiratory: Denies wheezing, cough, hemoptysis. Abdomen: Denies abdominal pain, nausea, vomiting, diarrhea. Genitourinary: Denies any vaginal bleeding or contractions today Musculoskeletal: See H&P Neurologic: Denies loss of bowel or bladder function. Denies saddle anesthesia. Skin: Denies rash, lesions. Physical Exam - Vital signs Vitals: Temp Pulse BP Pulse Ox 98.4 F 91 103/70 99 03/29/17 18:31 03/29/17 18:31 03/29/17 18:31 03/29/17 18:31 Notes: Physical exam: GENERAL: 26-year-old female, alert and oriented 3, no acute distress HEAD: Atraumatic, normocephalic. EYES: Pupils equal round and reactive to light, extraocular movements intact, sclera anicteric, conjunctiva are normal. ENT: Moist mucous membranes. NECK: Normal range of motion, supple ABDOMEN: Soft, normoactive bowel sounds. Consistent with 22 weeks . No tenderness to palpation. No guarding, no rebound. No masses appreciated. Back: No cervical, thoracic or lumbar spine tenderness. Patient does have tenderness in the right paraspinal tenderness of the lower lumbar area. Patient does have tenderness over the sacrum. There is no obvious skin changes. EXTREMITIES: Normal range of motion, no pitting or edema. No clubbing or cyanosis. NEUROLOGICAL: Cranial nerves II through XII grossly intact. Patient is moving all extremities. Sensory is intact. She is able to ambulate in triage. Her gait appears intact to me as she walks. She is uncomfortable with the in addition to the symptoms of sciatica. PSYCH: Normal mood, normal affect. SKIN: Warm, Dry, normal turgor, no rashes or lesions noted. Course - Re-evaluation Re-evalutation: 03/29/17 19:34 Note: The patient has symptoms of sciatica which are exacerbated by , her weight as well as the recent fall in the beginning of the month. The baby has been followed by both the health department and woman's health care here at this hospital. On the exam today she has a lot of lower paraspinal lumbar tenderness which is radicular in nature down the right buttock. I do not believe she has any spinal cord impingement at this time based upon the history and the physical exam findings. I have went over the limitations of treating her pain at this time. I will offer her a Lidoderm patch. She cannot take nonsteroidals. Tylenol has not been working. I will prescribe a short course of narcotic in addition to the Lidoderm patch. I have had a long conversation with her that this medicine will pass the placental barrier so I have asked her to use it sparingly and only when necessary. She knows to use the Lidoderm patch first. The patient has had Percocet before without any problems. 03/29/17 19:47 - Vital Signs Vital signs: Temp Pulse Resp BP Pulse Ox 98.4 F 91 103/70 99 03/29/17 18:31 03/29/17 18:31 03/29/17 18:31 03/29/17 18:31 Doctor's Discharge - Discharge Clinical Impression: Sciatica, 22 weeks Condition: Stable Disposition: HOME, SELF-CARE Instructions: Sciatica ([facility]) Additional Instructions: As we discussed, your symptoms are very consistent with sciatica. At this point in the , the plan is to try and treat you his supportively as possible. I prescribed Lidoderm patches: Apply 1 patch daily I will also prescribe some Percocet to use sparingly. Keep in mind that this is a narcotic and across the placenta. Follow-up with your doctor Return to the emergency room for worsening pain, numbness to the inner aspects of the legs or any difficulty urinating. The pain medicine you're taking prescribed as a narcotic. There are several important things you should know about this medicine: 1. This medicine contains Tylenol: It is important that you do not take Tylenol (or acetaminophen) while on this medicine. Tylenol is metabolized by the liver and taking too much Tylenol (acetaminophen) can lay to liver damage and even liver failure. 2. Taking narcotics for too long can lead to physical and mental dependence. Take this medicine only if really needed and in the lowest quantity to achieve pain relief. 3. Do not drink alcohol while on this medicine. Alcohol interacts with narcotics and the combination can be dangerous. 4. Do not drive or operate machinery while on this medicine. 5. Narcotics do cause constipation, so drink plenty of fluids and daily stool softeners. Prescriptions: Lidocaine [Lidoderm 5% (700 mg) Transdermal Patch] 1 patch TP DAILY #7 adh..patch Oxycodone HCl/Acetaminophen [Percocet 5-325 mg Tablet] 1 - 2 tab PO ASDIR PRN # 15 tablet PRN Reason:
== END 2017-03-29 19:44 | disposition home or self-care (01) ==
LOC: ER 18:16
DX: O26.892 Other specified pregnancy related conditions, second trimester (principal); M54.30 Sciatica, unspecified side; M54.9 Dorsalgia, unspecified; M79.1 Myalgia; W01.0XXA Fall on same level from slipping, tripping and stumbling without subsequent striking against object, initial encounter; Z3A.22 22 weeks gestation of pregnancy
CPT/HCPCS: 99283

== ENCOUNTER 2017-04-02 09:32 | Outpatient (CLI) | payer MEDICAID ==
[2017-04-02 10:12] LABS: APPEARANCE,URINE SLIGHTLY-CLOUDY; BILIRUBIN,URINE NEGATIVE (NEGATIVE); GLUCOSE, URINE NEGATIVE (NEGATIVE); KETONES,URINE NEGATIVE (NEGATIVE); LEUKOCYTE ESTERASE,URINE TRACE (NEGATIVE); NITRITE,URINE NEGATIVE (NEGATIVE); PROTEIN,URINE 30 mg/dL (NEGATIVE); URINE SPECIFIC GRAVITY 1.028; UROBILINOGEN,URINE NEGATIVE mg/dL (<2.0)
[2017-04-02 10:12] LABS: BACTERIA (WET MOUNT) 4+ BACTERIA SEEN; EPITHELIALS (WET MOUNT) 3+ EPITHELIALS SEEN; RBCS (WET MOUNT) 1+ RBCS SEEN; T.VAGINALIS (WET MOUNT) NO TRICHOMONAS SEEN; WBCS (WET MOUNT) 2+ WBCS SEEN; YEAST (WET MOUNT) NO YEAST SEEN
[2017-04-02 10:15] LABS: AMNISURE (ROM) NEGATIVE (NEGATIVE)
[2017-04-02 10:16] LABS: COLOR,URINE DARK YELLOW
[2017-04-02 10:29] LABS: URINE AMPHETAMINES SCREEN NEGATIVE; URINE BARBITURATES SCREEN NEGATIVE; URINE BENZODIAZEPINES SCREEN NEGATIVE; URINE COCAINE SCREEN NEGATIVE; URINE MARIJUANA (THC) SCREEN NEGATIVE; URINE METHADONE SCREEN NEGATIVE; URINE PHENCYCLIDINE SCREEN NEGATIVE
--- NOTE | 2017-04-02 11:15 | RADIOLOGY REPORT (SQ) ---
EXAM DESCRIPTION: U/S OB LIMITED COMPLETED DATE/TIME: 04/02/2017 11:02 am REASON FOR STUDY: 22.6 weeks- cervical ltngth; natalie COMPARISON: OB ultrasound 03/28/2017 TECHNIQUE: Limited transabdominal grayscale ultrasound for evaluation of specific requested obstetri will parameters. LIMITATIONS: None. FINDINGS: CERVICAL LENGTH: 4.2 cm Closed. NATALIE: Largest pocket 3.8 cm. FHR: 163 beats per minute. PRESENTATION: Cephalic. OTHER: No other significant findings. IMPRESSION: LIMITED OBSTETRICAL ULTRASOUND WITH MEASURED PARAMETERS DELINEATED ABOVE. Trimester of : Second trimester - 13 weeks 1 day to 27 weeks 6 days. TECHNICAL DOCUMENTATION: JOB ID: [id number] [employer]- All Rights Reserved
[2017-04-02 11:41] LABS: CHLAM PCR NOT DETECTED (NOT DETECT); GON PCR NOT DETECTED (NOT DETECT)
== END 2017-04-02 11:37 | disposition home or self-care (01) ==
LOC: LC 09:32
PROVIDERS: ATTEND Obstetrics & Gynecology
PROC: 4A1HXCZ Monitoring of Products of Conception, Cardiac Rate, External Approach (ICD-10-PCS; principal; 2017-04-02)
DX: Z36.86 Encounter for antenatal screening for cervical length (principal); Z3A.22 22 weeks gestation of pregnancy
CPT/HCPCS: 76815; 80307; 81001; 84112; 87210; 87491; 87591

== ENCOUNTER 2017-04-02 18:15 | Emergency (ER) | payer MEDICAID ==
--- NOTE | 2017-04-02 19:02 | ER Document Report ---
ED Medical Screen (RME) - General Chief Complaint: Urinary Problem Stated Complaint: URINARY PROBLEMS Time Seen by Provider: 04/02/17 18:40 Mode of Arrival: Ambulatory Information source: Patient Notes: Patient is a 26-year-old female who is currently approximately 22 weeks presents to the emergency department complaining of hematuria and painful urination onset today. Patient states she was at her [facility] getting an ultrasound performed when she noticed that she had some hematuria. Patient states that she had a negative UTI test and her COUNTY ADVISER told her to come to the emergency department or her PCP if her symptoms were to persit. Patient states after she woke up from a nap her symptoms worsened and she proceeded to come to the emergnecy department. Patient states it is extremely difficult to urinate due to the burning sensation. Patient is unsure if the blood is coming out in her urine or vaginally. Patient is . TRAVEL OUTSIDE OF THE [place] IN LAST 30 DAYS: No - Related Data Allergies/Adverse Reactions: aspirin [Aspirin] Allergy (Severe, Verified 04/02/17 18:16) Anaphylaxis azithromycin [From Zithromax] Allergy (Severe, Verified 0218 18:16) Anaphylaxis clindamycin [Clindamycin] Allergy (Severe, Verified 18 18:16) Anaphylaxis codeine [Codeine] Allergy (Severe, Verified 18 18:16) Anaphylaxis hydrocodone bitartrate [From Vicodin] Allergy (Severe, Verified 18 18:16) Anaphylaxis ibuprofen [Ibuprofen] Allergy (Severe, Verified 18 18:16) Anaphylaxis morphine [Morphine] Allergy (Severe, Verified 18 18:16) Anaphylaxis Penicillins Allergy (Severe, Verified 18 18:16) Anaphylaxis propoxyphene napsylate [From Darvocet-N 100] Allergy (Severe, Verified 18 18:16) Anaphylaxis soy [Soy] Allergy (Severe, Verified 18 18:16) Anaphylaxis tramadol [Tramadol] Allergy (Severe, Verified 0218 18:16) Anaphylaxis [place] And Derivatives Allergy (Unknown, Verified 04/02/17 18:16) Anaphylaxis tomato [Tomato] Allergy (Unknown, Verified 04/02/17 18:16) Anaphylaxis calcium carbonate [From Aspirin Regimen Esteban/Calcium] Allergy (Verified 18:16) cyclobenzaprine HCl [From Flexeril] Allergy (Verified 04/02/17 18:16) Anaphylaxis latex [Latex] Allergy (Verified 04/02/17 18:16) breaks out in rash NSAIDS (Non-Steroidal Anti-Inflamma Allergy (Verified 04/02/17 18:16) Past Medical History - General Information source: Patient Last Menstrual Period: 10/24/16 - Social History Chew tobacco use (# tins/day): No Frequency of alcohol use: None Drug Abuse: None Family history: None Pulmonary Medical History: Reports: Hx Asthma - no recent ER visit, Hx Bronchitis, Hx Pneumonia Neurological Medical History: Reports: Hx Migraine GI Medical History: Reports: Hx Gastroesophageal Reflux Disease Psychiatric Medical History: Reports: Hx Depression Past Surgical History: Reports: Hx Cholecystectomy, Hx Orthopedic Surgery - ankle x4, Hx Tonsillectomy - Immunizations Immunizations up to date: Yes Hx Diphtheria, Pertussis, Tetanus Vaccination: Yes - 10/12/13 Review of Systems - Review of Systems Constitutional: No symptoms reported EENT: No symptoms reported Cardiovascular: No symptoms reported Respiratory: No symptoms reported Gastrointestinal: No symptoms reported Genitourinary: See HPI, Burning, Dysuria, Hematuria Female Genitourinary: No symptoms reported Musculoskeletal: No symptoms reported Skin: No symptoms reported Hematologic/Lymphatic: No symptoms reported Neurological/Psychological: No symptoms reported -: Yes All other systems reviewed and negative Physical Exam - Vital signs Vitals: Temp Pulse Resp BP Pulse Ox 98.8 F 87 18 116/58 L 98 04/02/17 18:23 04/02/17 18:23 04/02/17 18:23 04/02/17 18:23 04/02/17 18:23 - General General appearance: Appears well, Alert In distress: None - HEENT Head: Normocephalic, Atraumatic Eyes: Normal Conjunctiva: Normal Pupils: PERRL Neck: Normal Course - Vital Signs Vital signs: Temp Pulse Resp BP Pulse Ox 98.8 F 87 18 116/58 L 98 04/02/17 18:23 04/02/17 18:23 04/02/17 18:23 04/02/17 18:23 04/02/17 18:23 Doctor's Discharge - Discharge Referrals: BRIDGETTE ROBB MD [Primary Care Provider] - Follow up as needed Scribe Documentation - Scribe Written by Scribe:: Chris Baires, 04/02/2017 19:03 acting as scribe for :: Carlos Alberto
[2017-04-02 19:30] LABS: ABSOLUTE EOSINOPHILS # (AUTO) 0.1 10^3/uL (0.0-0.6); ABSOLUTE LYMPHOCYTES (AUTO) 4.1 10^3/uL (0.5-4.7); ABSOLUTE MONOCYTES (AUTO) 0.6 10^3/uL (0.1-1.4); BASOPHILS % (AUTO) 0.2 % (0-2); EOSINOPHILS % (AUTO) 1.2 % (0-6); HEMATOCRIT 35.2 % (36.0-47.0); HEMOGLOBIN 12.4 g/dL (12.0-15.5); LYMPHOCYTES % (AUTO) 34.4 % (13-45); MEAN CORPUSCULAR HEMOGLOBIN 29.9 pg (27.0-33.4); MEAN CORPUSCULAR HGB CONC 35.3 g/dL (32.0-36.0); MEAN CORPUSCULAR VOLUME 85 fl (80-97); MONOCYTES % (AUTO) 5.1 % (3-13); PLATELET COUNT 331 10^3/uL (150-450); RED BLOOD COUNT 4.15 10^6/uL (3.72-5.28); RED CELL DISTRIBUTION WIDTH 15.1 % (11.5-14.0); SEGMENTED NEUTROPHILS % (AUTO) 59.1 % (42-78); TOTAL CELLS COUNTED % (AUTO) 100 %; WHITE BLOOD COUNT 11.8 10^3/uL (4.0-10.5)
[2017-04-02 19:39] LABS: APPEARANCE,URINE SLIGHTLY-CLOUDY; BILIRUBIN,URINE NEGATIVE (NEGATIVE); COLOR,URINE YELLOW; GLUCOSE, URINE NEGATIVE (NEGATIVE); KETONES,URINE TRACE mg/dL (NEGATIVE); LEUKOCYTE ESTERASE,URINE SMALL (NEGATIVE); NITRITE,URINE NEGATIVE (NEGATIVE); PROTEIN,URINE NEGATIVE (NEGATIVE); URINE SPECIFIC GRAVITY 1.019
[2017-04-02 19:51] LABS: ANION GAP 10 (5-19); BLOOD UREA NITROGEN 3 mg/dL (7-20); CALCIUM 8.9 mg/dL (8.4-10.2); CARBON DIOXIDE 22 mmol/L (22-30); CHLORIDE 107 mmol/L (98-107); GLUCOSE 78 mg/dL (75-110); POTASSIUM 3.7 mmol/L (3.6-5.0); SODIUM 138.6 mmol/L (137-145)
--- NOTE | 2017-04-02 20:03 | ER Document Report ---
ED General - General Chief Complaint: Urinary Problem Stated Complaint: URINARY PROBLEMS Time Seen by Provider: 04/02/17 18:40 Mode of Arrival: Ambulatory Information source: Patient Notes: 26-year-old female presents 3 para 223 weeks with concerns of burning upon urination. Patient notes that she was sent by the health department to be seen on labor and delivery floor where they performed some swabs on her. They told her everything looked fine, when she was being discharged she noted that she was having some bleeding and made the nurse aware who stated that was normal. Patient states she went home noted some furthers spotting but no active bleeding episodes. Patient blood type is a positive. Patient now states it manning upon urination TRAVEL OUTSIDE OF THE [place] IN LAST 30 DAYS: No - HPI Onset: This morning Onset/Duration: Sudden Quality of pain: Burning Severity: Mild Pain Level: 1 Associated symptoms: Other Exacerbated by: Other - Urination Relieved by: Denies Similar symptoms previously: Yes Recently seen / treated by doctor: Yes - Related Data Allergies/Adverse Reactions: aspirin [Aspirin] Allergy (Severe, Verified 04/02/17 18:16) Anaphylaxis azithromycin [From Zithromax] Allergy (Severe, Verified 04/02/17 18:16) Anaphylaxis clindamycin [Clindamycin] Allergy (Severe, Verified 04/02/17 18:16) Anaphylaxis codeine [Codeine] Allergy (Severe, Verified 04/02/17 18:16) Anaphylaxis hydrocodone bitartrate [From Vicodin] Allergy (Severe, Verified 18 18:16) Anaphylaxis ibuprofen [Ibuprofen] Allergy (Severe, Verified 18 18:16) Anaphylaxis morphine [Morphine] Allergy (Severe, Verified 04/02/17 18:16) Anaphylaxis Penicillins Allergy (Severe, Verified 04/02/17 18:16) Anaphylaxis propoxyphene napsylate [From Darvocet-N 100] Allergy (Severe, Verified 04/02/17 18:16) Anaphylaxis soy [Soy] Allergy (Severe, Verified 04/02/17 18:16) Anaphylaxis tramadol [Tramadol] Allergy (Severe, Verified 18 18:16) Anaphylaxis [place] And Derivatives Allergy (Unknown, Verified 04/02/17 18:16) Anaphylaxis tomato [Tomato] Allergy (Unknown, Verified 04/02/17 18:16) Anaphylaxis calcium carbonate [From Aspirin Regimen Esteban/Calcium] Allergy (Verified 18:16) cyclobenzaprine HCl [From Flexeril] Allergy (Verified 04/02/17 18:16) Anaphylaxis latex [Latex] Allergy (Verified 04/02/17 18:16) breaks out in rash NSAIDS (Non-Steroidal Anti-Inflamma Allergy (Verified 04/02/17 18:16) Past Medical History - General Information source: Patient Last Menstrual Period: 10/24/16 - Social History Smoking Status: Never Smoker Cigarette use (# per day): No Chew tobacco use (# tins/day): No Smoking Education Provided: No Frequency of alcohol use: None Drug Abuse: None Family History: Reviewed & Not Pertinent Patient has suicidal ideation: No Patient has homicidal ideation: No Pulmonary Medical History: Reports: Hx Asthma - no recent ER visit, Hx Bronchitis, Hx Pneumonia Neurological Medical History: Reports: Hx Migraine Renal/ Medical History: Denies: Hx Peritoneal Dialysis GI Medical History: Reports: Hx Gastroesophageal Reflux Disease Psychiatric Medical History: Reports: Hx Depression Past Surgical History: Reports: Hx Cholecystectomy, Hx Orthopedic Surgery - ankle x4, Hx Tonsillectomy - Immunizations Immunizations up to date: Yes Hx Diphtheria, Pertussis, Tetanus Vaccination: Yes - 10/12/13 Hx Pneumococcal Vaccination: 02/11/13 Review of Systems - Review of Systems Notes: REVIEW OF SYSTEMS: CONSTITUTIONAL : Denies fever, chills, or sweats. Denies recent illness. EENT: Denies eye, ear, throat, or mouth pain or symptoms. Denies nasal or sinus congestion or discharge. Denies throat, tongue, or mouth swelling or difficulty swallowing. CARDIOVASCULAR: Denies chest pain. Denies palpitations or racing or irregular heart beat. Denies ankle edema. RESPIRATORY: Denies cough, cold, or chest congestion. Denies shortness of breath, difficulty breathing, or wheezing. GASTROINTESTINAL: Denies abdominal pain or distention. Denies nausea, vomiting , or diarrhea. Denies blood in vomitus, stools, or per rectum. Denies black, tarry stools. Denies constipation. GENITOURINARY: Admits to burning upon urination FEMALE GENITOURINARY: Denies vaginal bleeding, heavy or abnormal periods, irregular periods. Denies vaginal discharge or odor. MUSCULOSKELETAL: Denies back or neck pain or stiffness. Denies joint pain or swelling. SKIN: Denies rash, lesions or sores. HEMATOLOGIC : Denies easy bruising or bleeding. LYMPHATIC: Denies swollen, enlarged glands. NEUROLOGICAL: Denies confusion or altered mental status. Denies passing out or loss of consciousness. Denies dizziness or lightheadedness. Denies headache. Denies weakness or paralysis or loss of use of either side. Denies problems with gait or speech. Denies sensory loss, numbness, or tingling. Denies seizures. PSYCHIATRIC: Denies anxiety or stress. Denies depression, suicidal ideation, or homicidal ideation. ALL OTHER SYSTEMS REVIEWED AND NEGATIVE. PHYSICAL EXAMINATION: GENERAL: Well-appearing, well-nourished and in no acute distress. HEAD: Atraumatic, normocephalic. EYES: Pupils equal round and reactive to light, extraocular movements intact, conjunctiva are normal. ENT: Nares patent, oropharynx clear without exudates. Moist mucous membranes. NECK: Normal range of motion, supple without lymphadenopathy LUNGS: Breath sounds clear to auscultation bilaterally and equal. No wheezes rales or rhonchi. HEART: Regular rate and rhythm without murmurs ABDOMEN: Soft, gravid abdomen nontender nondistended Female : deferred Musculoskeletal: Normal range of motion, no pitting or edema. No cyanosis. NEUROLOGICAL: Cranial nerves grossly intact. Normal speech, normal gait. Normal sensory, motor exams PSYCH: Normal mood, normal affect. SKIN: Warm, Dry, normal turgor, no rashes or lesions noted. Dictation was performed using [employer] voice recognition software Physical Exam - Vital signs Vitals: Temp Pulse Resp BP Pulse Ox 98.8 F 87 18 116/58 L 98 04/02/17 18:23 18 18:23 04/02/17 18:23 04/02/17 18:23 04/02/17 18:23 Course - Re-evaluation Re-evalutation: 04/03/17 00:[address] Carpio, she does note that is normal to have some spotting after examination is performed by labor and delivery, given the patient is not having any heavy bleeding I believe she is stable for discharge as does the OB/ [employer]. She does not require RhoGam, I did give her very strict return precautions , she is noted to have some white blood cells on the urinalysis and culture has been sent I will cover her with Macrobid, patient is noted to have many allergies causing anaphylactic reactions but states she has taken Macrobid with no difficulty After performing a Medical Screening Examination, I estimate there is LOW risk for ACUTE APPENDICITIS, BOWEL OBSTRUCTION, ACUTE CHOLECYSTITIS, PERFORATED DIVERTICULITIS, INCARCERATED HERNIA, PANCREATITIS, PELVIC INFLAMMATORY DISEASE, PERFORATED ULCER, ECTOPIC , or TUBO-OVARIAN ABSCESS, thus I consider the discharge disposition reasonable. Also, there is no evidence or peritonitis , sepsis, or toxicity. I have reevaluated this patient multiple times and no significant life threatening changes are noted. The patient and I have discussed the diagnosis and risks, and we agree with discharging home with close follow-up with the understanding that symptoms and presentations can change. We also discussed returning to the Emergency Department immediately if new or worsening symptoms occur. We have discussed the symptoms which are most concerning (e.g., bloody stool, fever, changing or worsening pain, vomiting) that necessitate immediate return. - Vital Signs Vital signs: Temp Pulse Resp BP Pulse Ox 98.2 F 80 18 101/53 L 98 04/02/17 20:21 04/02/17 20:21 04/02/17 18:23 04/02/17 20:21 04/02/17 20:21 - Laboratory Result Diagrams: 04/02/17 19:00 04/02/17 19:00 Laboratory results interpreted by me: 04/02/17 04/02/17 04/02/17 19:00 19:00 19:00 WBC 11.8 H Hct 35.2 L RDW 15.1 H BUN 3 L Creatinine 0.50 L Urine Ketones TRACE H Urine Blood MODERATE H Urine Urobilinogen 2.0 H Ur Leukocyte Esterase SMALL H Urine Ascorbic Acid 20 H Discharge - Discharge Clinical Impression: Dysuria, Threatened miscarriage UTI in Qualifiers: Trimester: second trimester Qualified Code(s): O23.42 - Unspecified infection of urinary tract in , second trimester Condition: Stable Disposition: HOME, SELF-CARE Instructions: Urinary Tract Infection ([facility]) Prescriptions: Nitrofurantoin Monohyd/M-Cryst [Macrobid 100 mg Capsule] 1 tab PO BID #20 capsule Referrals: BRIDGETTE ROBB MD [Primary Care Provider] - Follow up tomorrow
[2017-04-02 20:23] VITALS: BP 101/53
== END 2017-04-02 20:37 | disposition home or self-care (01) ==
LOC: ER 18:15
DX: O20.0 Threatened abortion (principal); O23.42 Unspecified infection of urinary tract in pregnancy, second trimester; Z3A.23 23 weeks gestation of pregnancy; Z88.6 Allergy status to analgesic agent; Z88.0 Allergy status to penicillin; Z91.040 Latex allergy status; Z88.3 Allergy status to other anti-infective agents
CPT/HCPCS: 36415; 80048; 81001; 85025; 87086; 99283

== ENCOUNTER 2017-06-03 15:37 | Outpatient (CLI) | payer MEDICAID ==
[2017-06-03 17:13] LABS: ALANINE AMINOTRANSFERASE 36 U/L (9-52); ALBUMIN 3.4 g/dL (3.5-5.0); ALKALINE PHOSPHATASE 121 U/L (38-126); ANION GAP 9 (5-19); ASPARTATE AMINO TRANSFERASE 18 U/L (14-36); BILIRUBIN,DIRECT 0.3 mg/dL (0.0-0.4); BILIRUBIN,TOTAL 0.6 mg/dL (0.2-1.3); BLOOD UREA NITROGEN 4 mg/dL (7-20); CALCIUM 9.3 mg/dL (8.4-10.2); CARBON DIOXIDE 22 mmol/L (22-30); CHLORIDE 106 mmol/L (98-107); GLUCOSE 77 mg/dL (75-110); SODIUM 136.7 mmol/L (137-145); TOTAL PROTEIN 6.4 g/dL (6.3-8.2)
[2017-06-03 17:25] LABS: APPEARANCE,URINE SLIGHTLY-CLOUDY; BILIRUBIN,URINE NEGATIVE (NEGATIVE); COLOR,URINE YELLOW; GLUCOSE, URINE NEGATIVE (NEGATIVE); KETONES,URINE NEGATIVE (NEGATIVE); LEUKOCYTE ESTERASE,URINE NEGATIVE (NEGATIVE); NITRITE,URINE NEGATIVE (NEGATIVE); PROTEIN,URINE NEGATIVE (NEGATIVE); URINE SPECIFIC GRAVITY 1.015
[2017-06-03 17:35] LABS: URINE AMPHETAMINES SCREEN NEGATIVE; URINE BARBITURATES SCREEN NEGATIVE; URINE BENZODIAZEPINES SCREEN NEGATIVE; URINE COCAINE SCREEN NEGATIVE; URINE MARIJUANA (THC) SCREEN NEGATIVE; URINE METHADONE SCREEN NEGATIVE; URINE PHENCYCLIDINE SCREEN NEGATIVE
--- NOTE | 2017-06-03 17:53 | RADIOLOGY REPORT (SQ) ---
EXAM DESCRIPTION: U/S OB LIMITED COMPLETED DATE/TIME: 06/03/2017 5:41 pm REASON FOR STUDY: 31.5 wks- ? PTL COMPARISON: 04/02/2017 TECHNIQUE: Limited transabdominal grayscale ultrasound for evaluation of specific requested obstetri will parameters. LIMITATIONS: None. FINDINGS: CERVICAL LENGTH: 1.9 cm. Closed. NATALIE: Not measured. Cm. FHR: 141 beats per minute. PRESENTATION: Cephalic. OTHER: No other significant findings. IMPRESSION: LIMITED OBSTETRICAL ULTRASOUND WITH MEASURED PARAMETERS DELINEATED ABOVE. Trimester of : Third trimester - 28 weeks to delivery. TECHNICAL DOCUMENTATION: JOB ID: [id number] [employer]- All Rights Reserved Reading location - IP/workstation name: [email or web address]
[2017-06-03] MEDS ORDERED: BETAMET ACET/BETAMET NA INJ 6 MG/1 ML IM ONE (19:23)
[2017-06-03] MEDS ORDERED: BETAMET ACET/BETAMET NA INJ 6 MG/1 ML ONE (19:32)
== END 2017-06-03 19:59 | disposition home or self-care (01) ==
LOC: LC 15:37
PROVIDERS: ATTEND Obstetrics & Gynecology Gynecology
PROC: 4A1HXCZ Monitoring of Products of Conception, Cardiac Rate, External Approach (ICD-10-PCS; principal; 2017-06-03)
DX: O47.03 False labor before 37 completed weeks of gestation, third trimester (principal); Z3A.31 31 weeks gestation of pregnancy
CPT/HCPCS: 59899; 36415; 80053; 81001; 80307; 76815; J0702

== ENCOUNTER 2017-06-04 20:21 | Outpatient (CLI) | payer MEDICAID ==
[~2017-06-04 20:21] MED LIST: BETAMET ACET/BETAMET NA INJ 6 MG/1 ML IM SCH
[2017-06-04] MEDS ORDERED: BETAMET ACET/BETAMET NA INJ 6 MG/1 ML ONE (20:33)
== END 2017-06-04 20:54 | disposition home or self-care (01) ==
LOC: LC 20:21
PROVIDERS: ATTEND Obstetrics & Gynecology
PROC: 4A1HXCZ Monitoring of Products of Conception, Cardiac Rate, External Approach (ICD-10-PCS; principal; 2017-06-04)
DX: O47.03 False labor before 37 completed weeks of gestation, third trimester (principal); Z3A.31 31 weeks gestation of pregnancy
CPT/HCPCS: 59899; 96372; J0702

== ENCOUNTER 2017-06-05 11:32 | Outpatient (CLI) | payer MEDICAID ==
--- NOTE | 2017-06-05 12:55 | Non Stress Test Report ---
Non Stress Test Datetime Report Generated by CPN: 06/05/2017 12:55 DEMOGRAPHIC EGA NST: 32.0 INDICATION Indication for Study: Ordered by Provider MONITORING Monitor Explained: Monitor Explained; Test Explained; Patient Verbalized Understanding Time on Monitor: 06/05/2017 11:52 Time off Monitor: 06/05/2017 12:54 NST Duration: 62 NST INTERVENTIONS NST Interventions: PO Hydration Physician Notified NST: Radha Gray CNM BABY A: [id number] BABY A Movement : Present Contraction Frequency : irritability FHR Baseline : 140 Accelerations : 15X15 Decelerations : None Variability : Moderate 6-25bpm NST Review: Meets Criteria for Reactive NST NST Review and Verified By : Jamila Camp RNC NST Results: Reactive NST REPORT Report Trigger: Send Report
[2017-06-05 13:18] LABS: APPEARANCE,URINE CLEAR; BILIRUBIN,URINE NEGATIVE (NEGATIVE); COLOR,URINE STRAW; GLUCOSE, URINE NEGATIVE (NEGATIVE); KETONES,URINE TRACE mg/dL (NEGATIVE); LEUKOCYTE ESTERASE,URINE NEGATIVE (NEGATIVE); NITRITE,URINE NEGATIVE (NEGATIVE); PROTEIN,URINE NEGATIVE (NEGATIVE); URINE SPECIFIC GRAVITY 1.006; UROBILINOGEN,URINE NEGATIVE mg/dL (<2.0)
[2017-06-05 13:42] LABS: URINE AMPHETAMINES SCREEN NEGATIVE; URINE BARBITURATES SCREEN NEGATIVE; URINE BENZODIAZEPINES SCREEN NEGATIVE; URINE COCAINE SCREEN NEGATIVE; URINE MARIJUANA (THC) SCREEN NEGATIVE; URINE METHADONE SCREEN NEGATIVE; URINE PHENCYCLIDINE SCREEN NEGATIVE
--- NOTE | 2017-06-05 13:44 | RADIOLOGY REPORT (SQ) ---
EXAM DESCRIPTION: U/S OB LIMITED COMPLETED DATE/TIME: 06/05/2017 1:30 pm REASON FOR STUDY: iup 32 weeks cervical length c/o contractions COMPARISON: 06/03/2017 TECHNIQUE: Limited transabdominal grayscale ultrasound for evaluation of specific requested obstetri will parameters. LIMITATIONS: None. FINDINGS: CERVICAL LENGTH: 3.9 cm Closed. FHR: 158 beats per minute. PRESENTATION: Cephalic. OTHER: No other significant findings. IMPRESSION: LIMITED OBSTETRICAL ULTRASOUND WITH MEASURED PARAMETERS DELINEATED ABOVE. Trimester of : Third trimester - 28 weeks to delivery. TECHNICAL DOCUMENTATION: JOB ID: [id number] [employer]- All Rights Reserved Reading location - IP/workstation name: [email or web address]
== END 2017-06-05 13:57 | disposition home or self-care (01) ==
LOC: LC 11:32
PROVIDERS: ATTEND Obstetrics & Gynecology
PROC: 4A1HXCZ Monitoring of Products of Conception, Cardiac Rate, External Approach (ICD-10-PCS; principal; 2017-06-05)
DX: Z34.93 Encounter for supervision of normal pregnancy, unspecified, third trimester (principal); Z3A.32 32 weeks gestation of pregnancy
CPT/HCPCS: 59025; 76815; 80307; 81001

== ENCOUNTER 2017-06-17 10:03 | Outpatient (CLI) | payer MEDICAID | END 2017-06-17 10:53 | disposition home or self-care (01) | LOC: LC 10:03 | PROVIDERS: ATTEND Obstetrics & Gynecology | PROC: 4A1HXCZ Monitoring of Products of Conception, Cardiac Rate, External Approach (ICD-10-PCS; principal; 2017-06-17) | DX: Z34.93 Encounter for supervision of normal pregnancy, unspecified, third trimester (principal) | CPT/HCPCS: 59025 ==

== ENCOUNTER 2017-06-22 15:34 | Emergency (ER) | payer MEDICAID ==
--- NOTE | 2017-06-22 16:50 | ER Document Report ---
ED Extremity Problem, Lower - General Chief Complaint: Foot Pain Stated Complaint: FOOT INJURY Time Seen by Provider: 06/22/17 16:25 Mode of Arrival: Ambulatory Information source: Patient Notes: 26-year-old female presents to ED for complaint of left foot and ankle pain when a can of green beans fell on her foot during this morning at home. She is 34 weeks 6 days . She states she has been having frequent pre-term contractions but is having no abdominal pain, contractions, or vaginal bleeding at this time. She states she has had to be seen by [employer]NAGER multiple times. TRAVEL OUTSIDE OF THE [place] IN LAST 30 DAYS: No - HPI Patient complains to provider of: Injury, Pain, Swelling Location: Ankle, Foot Occurred: This morning Where: Home, Indoors Onset/Duration: Sudden, Persistent Quality of pain: Achy, Sharp Severity: Moderate Pain Level: 4 Context: Other - Can of green beans fell on her foot and ankle Recent injury: Yes Associated symptoms: Painful ambulation Exacerbated by: Movement, Walking Relieved by: Elevation, Ice, Rest - Related Data Allergies/Adverse Reactions: aspirin [Aspirin] Allergy (Severe, Verified 06/22/17 15:35) Anaphylaxis azithromycin [From Zithromax] Allergy (Severe, Verified 06/22/17 15:35) Anaphylaxis clindamycin [Clindamycin] Allergy (Severe, Verified 06/22/17 15:35) Anaphylaxis codeine [Codeine] Allergy (Severe, Verified 06/22/17 15:35) Anaphylaxis hydrocodone bitartrate [From Vicodin] Allergy (Severe, Verified 06/22/17 15:35) Anaphylaxis ibuprofen [Ibuprofen] Allergy (Severe, Verified 06/22/17 15:35) Anaphylaxis morphine [Morphine] Allergy (Severe, Verified 06/22/17 15:35) Anaphylaxis Penicillins Allergy (Severe, Verified 06/22/17 15:35) Anaphylaxis propoxyphene napsylate [From Darvocet-N 100] Allergy (Severe, Verified 06/22/17 15:35) Anaphylaxis soy [Soy] Allergy (Severe, Verified 06/22/17 15:35) Anaphylaxis tramadol [Tramadol] Allergy (Severe, Verified 06/22/17 15:35) Anaphylaxis [place] And Derivatives Allergy (Unknown, Verified 06/22/17 15:35) Anaphylaxis tomato [Tomato] Allergy (Unknown, Verified 06/22/17 15:35) Anaphylaxis calcium carbonate [From Aspirin Regimen Esteban/Calcium] Allergy (Verified 15:35) cyclobenzaprine [From Flexeril] Allergy (Verified 06/22/17 15:35) cyclobenzaprine HCl [From Flexeril] Allergy (Verified 06/22/17 15:35) Anaphylaxis latex [Latex] Allergy (Verified 06/22/17 15:35) breaks out in rash NSAIDS (Non-Steroidal Anti-Inflamma Allergy (Verified 06/22/17 15:35) propoxyphene Allergy (Verified 06/22/17 15:35) Past Medical History - General Information source: Patient - Social History Smoking Status: Never Smoker Cigarette use (# per day): No Chew tobacco use (# tins/day): No Smoking Education Provided: No Frequency of alcohol use: None Drug Abuse: None Lives with: Family Family History: Reviewed & Not Pertinent - Past Medical History Cardiac Medical History: Reports: None Pulmonary Medical History: Reports: Hx Asthma - no recent ER visit, Hx Bronchitis, Hx Pneumonia EENT Medical History: Reports: None Neurological Medical History: Reports: Hx Migraine Endocrine Medical History: Reports: None Renal/ Medical History: Reports: None Malignancy Medical History: Reports: None GI Medical History: Reports: Hx Gastroesophageal Reflux Disease Musculoskeltal Medical History: Reports Hx Musculoskeletal Trauma Skin Medical History: Reports None Psychiatric Medical History: Reports: Hx Depression Traumatic Medical History: Reports: Hx Fractures Infectious Medical History: Reports: None Past Surgical History: Reports: Hx Cholecystectomy, Hx Orthopedic Surgery - ankle x4, Hx Tonsillectomy - Immunizations Immunizations up to date: Yes Hx Diphtheria, Pertussis, Tetanus Vaccination: Yes - 10/12/13 Hx Pneumococcal Vaccination: 02/11/13 Review of Systems - Review of Systems Constitutional: No symptoms reported EENT: No symptoms reported Cardiovascular: No symptoms reported Respiratory: No symptoms reported Gastrointestinal: No symptoms reported Genitourinary: No symptoms reported Female Genitourinary: No symptoms reported Musculoskeletal: Ankle swelling - Left foot and ankle pain bruising and swelling Skin: No symptoms reported Hematologic/Lymphatic: No symptoms reported Neurological/Psychological: No symptoms reported -: Yes All other systems reviewed and negative Physical Exam - Vital signs Vitals: Temp Pulse Resp BP Pulse Ox 98.8 F 86 18 110/67 98 06/22/17 15:45 06/22/17 15:45 06/22/17 15:45 06/22/17 15:45 06/22/17 15:45 Interpretation: Normal - General General appearance: Appears well, Alert - HEENT Head: Normocephalic, Atraumatic Eyes: Normal Pupils: PERRL - Respiratory Respiratory status: No respiratory distress Chest status: Nontender Breath sounds: Normal Chest palpation: Normal - Cardiovascular Rhythm: Regular Heart sounds: Normal auscultation Murmur: No - Abdominal Inspection: Gravid female Distension: No distension Bowel sounds: Normal Tenderness: Nontender Organomegaly: No organomegaly - Back Back: Normal, Nontender - Extremities General upper extremity: Normal inspection, Nontender, Normal color, Normal ROM , Normal temperature General lower extremity: Normal inspection, Normal temperature, Normal weight bearing. No: Reshma's sign Ankle: Tender, Ecchymosis, Limited ROM, Other - Swelling Foot: Tender, Ecchymosis, Metatarsal compress. pain, No evidence of FB, Other - Swelling - Neurological Neuro grossly intact: Yes Cognition: Normal Orientation: AAOx4 [place] Coma Scale Eye Opening: Spontaneous [place] Coma Scale Verbal: Oriented [place] Coma Scale Motor: Obeys Commands [place] Coma Scale Total: 15 Speech: Normal Motor strength normal: LUE, RUE, LLE, RLE Sensory: Normal - Psychological Associated symptoms: Normal affect, Normal mood - Skin Skin Temperature: Warm Skin Moisture: Dry Skin Color: Normal, Ecchymosis Location of irregularity: Extremities - Left ankle and foot Irregularity with: Swelling, Tenderness Course - Re-evaluation Re-evalutation: 06/22/17 17:40 The patient is nontoxic appearing with stable vitals. They are afebrile. Ankle exam shows no deformities with no obvious ligament instability. There is a normal pulse and sensation distally. There is no redness or signs of infection. X-rays show no acute fracture per the radiologist. Patient will be placed in an Rl wrap for comfort. Crutches will be offered and given if requested. Patient will be instructed to follow-up with not better in 1 week, sooner for increasing pain, fever, redness, numbness, tingling, weakness, any further concerns. Patient will be instructed to rest, ice, elevate their ankle. - Vital Signs Vital signs: Temp Pulse Resp BP Pulse Ox 98.6 F 81 20 106/69 98 06/22/17 17:44 06/22/17 17:44 06/22/17 17:44 06/22/17 17:44 06/22/17 17:44 - Diagnostic Test Radiology reviewed: Image reviewed, Reports reviewed Procedures - Immobilization Left Ankle Time completed: 17:52 Immobilizer type: Rl wrap, Ankle stirrup, Crutches Performed by: PCT Post-Proc Neuro Vasc Exam: Normal Alignment checked and good: Yes Discharge - Discharge Clinical Impression: Sprained ankle Qualifiers: Encounter type: initial encounter Involved ligament of ankle: unspecified ligament Laterality: left Qualified Code(s): S93.402A - Sprain of unspecified ligament of left ankle, initial encounter Condition: Stable Disposition: HOME, SELF-CARE Additional Instructions: SPRAINED ANKLE: Your sprained ankle results from stretching or tearing of the ligaments which support the ankle. This usually results from twisting the foot inward and under. The ligaments will require time and protection in order to heal properly. Many ankle sprains are quite disabling, and should be taken seriously. The usual treatment for an ankle sprain is cold packs; protection with tape , splints, or wraps; elevation; and staying off the ankle for at least a day. As the ankle improves, you can walk IF it's not painful to bear weight. Sports are best postponed until healing is complete. More serious sprains usually require strengthening exercises after early healing. Your physician has assessed the seriousness of the ligament injury to your ankle. However, the treatment may change, depending on how your ankle progresses. If further exams were recommended, it is important that you follow through. Call the doctor if your foot becomes numb, painful, or severely swollen. RL WRAP: A compression dressing (rl wrap) has been placed. This helps hold the area still. It limits swelling and internal bleeding. The wrap should be comfortably snug -- not tight. You should feel a sense of pressure, but not severe pain under the wrap. Unless the physician tells you otherwise, you can adjust the wrap for comfort. If the wrap causes symptoms suggesting it's too tight -- uncomfortable pressure, swelling or discoloration beyond the wrap, numbness, or severe pain - - you must loosen the wrap. If these symptoms don't resolve promptly, return for re-evaluation. ANKLE STIRRUP SPLINT: You are to use an ankle brace called a stirrup splint. This type of brace allows you to place greater stresses on the ankle without risk of re-injury, and is often used for more severe ankle injuries such as avulsion fractures and ligament ruptures. The splint can be worn over a sock or tape. For proper support, wear the splint with a shoe over it. It's important that the splint fit properly. Adjust the heel tension, if needed. If your splint has air bladders, peel back the bottom of each air bladder, then move the Velcro attachment of the heel strap up or down. Air bladder pressure can be adjusted by pulling up the valve at the top, threading the air tube down into the main bladder, then blowing air into the bladder or squeezing it out. The two sides of the stirrup can be moved forward or back on your ankle by changing the attachment of the main straps. If you are unable to use the ankle comfortably in the splint, return for re -evaluation. USE OF CRUTCHES: The doctor has recommended that you not bear weight at this time. You will need to use crutches. Adjust the crutches so the tops come to about two inches under the armpit while you are standing upright. Use your hands -- not your armpits -- to support your weight. To get into a chair, support yourself with one crutch on the injured side. Hold the chair with the other hand, then lower yourself while putting all your weight on the good leg. Going up stairs is `good leg up, step up, then bring up crutches and bad leg.' Down stairs is `bad leg and crutches down, then bring good leg down.' If you develop numbness or swelling in an arm or hand, you are using the crutches incorrectly. Return if you are having any problems with the crutches. ICE & ELEVATION: Apply ice packs frequently against the painful area. Many different schedules are recommended, such as "20 minutes on, 20 minutes off" or "one hour ice, two hours rest." If you need to work, you may need to go longer between ice treatments. You should plan to have the area ice packed AT LEAST one- fourth of the time. The ice should be applied over the wrap, tape, or splint, or over a layer of cloth -- not directly against the skin. Some ice bags have a built-in cloth and can be put directly on the skin. Your injured part should be elevated as much as possible over the next 48 hours. Try to keep the injury above the level of the heart. Avoid use of the injured area. Elevation and rest will decrease the swelling. Acetaminophen Acetaminophen may be taken for pain relief or fever control. It's much safer than aspirin, offering a wider range of "safe" dosages. It is safe during . Some brand names are Tylenol, Panadol, Datril, Anacin 3, Tempra, and Liquiprin. Acetaminophen can be repeated every four hours. The following are maximum recommended dosages: WEIGHT Dose Drops Elixir Chewable( 80mg) (LBS.) drprs=droppers tsp=teaspoon 6 40 mg .4 ml (1/2) 6-11 80 mg .8 ml (full) 1/2 tsp 1 tab 12-16 120 mg 1 1/2 drprs 3/4 tsp 1 1/2 tabs 17-23 160 mg 2 drprs 1 tsp 2 tabs 24-30 240 mg 3 drprs 1 1/2 tsp 3 tabs 30-35 320 mg 2 tsp 4 tabs 36-41 360 mg 2 1/4 tsp 4 1 /2 tabs 42-47 400 mg 2 1/2 tsp 5 tabs 48-53 480 mg 3 tsp 6 tabs 54-59 520 mg 3 1/4 tsp 6 1 /2 tabs 60-64 560 mg 3 1/2 tsp 7 tabs 65-70 600 mg 3 3/4 tsp 7 1 /2 tabs 71-76 640 mg 4 tsp 8 tabs 77-82 720 mg 4 1/2 tsp 9 tabs 83-88 800 mg 5 tsp 10 tabs >89 pounds or adults 650 mg to 900 mg Acetaminophen can be repeated every four hours. Maximum daily dose not to exceed 4000 mg. These maximum recommended dosages are slightly higher than the dosages written on the product container, but these dosages are very safe and well below the toxic dosage for acetaminophen. FOLLOW-UP CARE: If you have been referred to a physician for follow-up care, call the physician s office for an appointment as you were instructed or within the next two days. If you experience worsening or a significant change in your symptoms, notify the physician immediately or return to the Emergency Department at any time for re-evaluation. Referrals: OTTO ERICKSON MD [ACTIVE STAFF] - Follow up as needed
--- NOTE | 2017-06-22 17:25 | RADIOLOGY REPORT (SQ) ---
EXAM DESCRIPTION: FOOT LEFT COMPLETE COMPLETED DATE/TIME: 06/22/2017 5:09 pm REASON FOR STUDY: can fell off shelf hitting foot COMPARISON: Left foot x-ray 03/15/2011. Left tibia/fibula 01/19/2016. Left ankle x-ray 10/14/2009. NUMBER OF VIEWS: Three views. TECHNIQUE: AP, lateral and oblique radiographic images acquired of the left foot. LIMITATIONS: None. FINDINGS: MINERALIZATION: Normal. BONES: No acute fracture or dislocation. Area of increased density at the distal tibia, not signific antly changed in the interval, may be secondary to prior surgery. SOFT TISSUES: No soft tissue swelling. Redemonstration of tiny metallic densities within the soft ti ssues of the lower leg, may be secondary to prior surgery. IMPRESSION: No radiographic evidence of acute injury. TECHNICAL DOCUMENTATION: JOB ID: [id number] 2010 [employer]- All Rights Reserved Reading location - IP/workstation name: [email or web address]
--- NOTE | 2017-06-22 17:28 | RADIOLOGY REPORT (SQ) ---
EXAM DESCRIPTION: ANKLE LEFT COMPLETE COMPLETED DATE/TIME: 06/22/2017 5:09 pm REASON FOR STUDY: can fell off shelf hitting foot COMPARISON: Left ankle x-ray 03/15/2011, 10/14/2009. Left foot x-ray 06/22/2017. NUMBER OF VIEWS: Three views. TECHNIQUE: AP, lateral, and oblique radiographic images acquired of the left ankle. LIMITATIONS: None. FINDINGS: MINERALIZATION: Normal. BONES: No acute fracture or dislocation. Redemonstration of area of increased sclerosis at the dista l tibia, may be secondary to prior surgery. JOINTS: No effusion. SOFT TISSUES: Mild diffuse soft tissue swelling at the lower leg and ankle. Redemonstration of tiny metallic densities within the soft tissues of the lower leg, may be secondary to prior surgery. IMPRESSION: No radiographic evidence of acute fracture. Mild diffuse soft tissue swelling. TECHNICAL DOCUMENTATION: JOB ID: [id number] 2010 [employer]- All Rights Reserved Reading location - IP/workstation name: [email or web address]
[2017-06-22 17:55] VITALS: BP 106/69
== END 2017-06-22 17:57 | disposition home or self-care (01) ==
LOC: ER 15:34
DX: S93.402A Sprain of unspecified ligament of left ankle, initial encounter (principal); S90.32XA Contusion of left foot, initial encounter; O9A.213 Injury, poisoning and certain other consequences of external causes complicating pregnancy, third trimester; W22.8XXA Striking against or struck by other objects, initial encounter; Y92.009 Unspecified place in unspecified non-institutional (private) residence as the place of occurrence of the external cause; Z3A.34 34 weeks gestation of pregnancy
CPT/HCPCS: 99283; 73610; 73630; L1902

== ENCOUNTER 2017-06-24 10:03 | Outpatient (CLI) | payer MEDICAID ==
--- NOTE | 2017-06-24 10:04 | Non Stress Test Report ---
Non Stress Test Datetime Report Generated by CPN: 06/24/2017 10:04 DEMOGRAPHIC EGA NST: 33.5 INDICATION Indication for Study: Diabetes Mellitus; Ordered by Provider VITAL SIGNS Temperature - NST: 98.2 Pulse - NST: 94 RESP - NST: 18 NBPSYS NST: 90 NBPDIA NST: 40 MONITORING Monitor Explained: Monitor Explained; Test Explained; Patient Verbalized Understanding Time on Monitor: 06/17/2017 10:13 Time off Monitor: 06/17/2017 10:51 NST Duration: 38 NST INTERVENTIONS NST Interventions: PO Hydration; Reposition Patient Physician Notified NST: A HASTINGS, CNM BABY A: [id number] BABY A Movement : Present Contraction Frequency : NONE FHR Baseline : 135 Accelerations : 15X15 Decelerations : None Variability : Moderate 6-25bpm NST Review: Meets Criteria for Reactive NST NST Review and Verified By : Jose Angel Chua RN NSSonali Results: Reactive NST REPORT Report Trigger: Send Report
== END 2017-06-24 10:46 | disposition home or self-care (01) ==
LOC: LC 10:03
PROVIDERS: ATTEND Obstetrics & Gynecology Gynecology
PROC: 4A1HXCZ Monitoring of Products of Conception, Cardiac Rate, External Approach (ICD-10-PCS; principal; 2017-06-24)
DX: O24.419 Gestational diabetes mellitus in pregnancy, unspecified control (principal); Z3A.34 34 weeks gestation of pregnancy
CPT/HCPCS: 59025

== ENCOUNTER 2017-06-29 02:48 | Outpatient (CLI) | payer MEDICAID ==
[2017-06-29 03:46] LABS: APPEARANCE,URINE CLEAR; BILIRUBIN,URINE NEGATIVE (NEGATIVE); COLOR,URINE STRAW; GLUCOSE, URINE NEGATIVE (NEGATIVE); KETONES,URINE NEGATIVE (NEGATIVE); LEUKOCYTE ESTERASE,URINE NEGATIVE (NEGATIVE); NITRITE,URINE NEGATIVE (NEGATIVE); PROTEIN,URINE NEGATIVE (NEGATIVE); URINE SPECIFIC GRAVITY 1.003; UROBILINOGEN,URINE NEGATIVE mg/dL (<2.0)
[2017-06-29 03:55] LABS: URINE AMPHETAMINES SCREEN NEGATIVE; URINE BARBITURATES SCREEN NEGATIVE; URINE BENZODIAZEPINES SCREEN NEGATIVE; URINE COCAINE SCREEN NEGATIVE; URINE MARIJUANA (THC) SCREEN NEGATIVE; URINE METHADONE SCREEN NEGATIVE; URINE PHENCYCLIDINE SCREEN NEGATIVE
--- NOTE | 2017-06-29 04:48 | Non Stress Test Report ---
Non Stress Test Datetime Report Generated by CPN: 06/29/2017 04:47 DEMOGRAPHIC Test Number: 4 EGA NST: 35.3 EGA NST: 34.5 INDICATION Indication for Study: Ordered by Provider Indication for Study: Ordered by Provider VITAL SIGNS Temperature - NST: 98.1 Pulse - NST: 88 RESP - NST: 16 NBPSYS NST: 111 NBPDIA NST: 62 URINE RESULTS Urine Protein, NST: Negative Urine Ketones - NST: Negative Urine Glucose - NST: Negative Urine Blood - NST: Negative MONITORING Monitor Explained: Monitor Explained; Test Explained; Patient Verbalized Understanding Monitor Explained: Monitor Explained; Test Explained; Patient Verbalized Understanding Time on Monitor: 06/29/2017 03:11 Time on Monitor: 06/24/2017 10:15 Time off Monitor: 06/29/2017 04:14 Time off Monitor: 06/24/2017 10:44 NST Duration: 63 NST Duration: 29 NST INTERVENTIONS NST Interventions: PO Hydration NST Interventions: PO Hydration Physician Notified NST: dr. zaragoza Physician Notified NST: J Gray CNM BABY A: [id number] BABY A Movement : Present Movement : Present Contraction Frequency : none Contraction Frequency : irr FHR Baseline : 140 FHR Baseline : 140 Accelerations : 15X15 Accelerations : 15X15 Decelerations : None Decelerations : None Variability : Moderate 6-25bpm Variability : Moderate 6-25bpm NST Review: Meets Criteria for Reactive NST NST Review: Meets Criteria for Reactive NST NST Review and Verified By : LEAH Gilliland Results: Reactive NST Results: Reactive NST REPORT Report Trigger: Send Report
== END 2017-06-29 04:24 | disposition home or self-care (01) ==
LOC: LC 02:48
PROVIDERS: ATTEND Obstetrics & Gynecology Gynecology
PROC: 4A1HXCZ Monitoring of Products of Conception, Cardiac Rate, External Approach (ICD-10-PCS; principal; 2017-06-29)
DX: Z34.93 Encounter for supervision of normal pregnancy, unspecified, third trimester (principal)
CPT/HCPCS: 59025; 80307; 81001

== ENCOUNTER 2017-07-01 02:22 | Outpatient (CLI) | payer MEDICAID ==
[2017-07-01 02:51] LABS: APPEARANCE,URINE CLEAR; BILIRUBIN,URINE NEGATIVE (NEGATIVE); COLOR,URINE STRAW; GLUCOSE, URINE NEGATIVE (NEGATIVE); KETONES,URINE NEGATIVE (NEGATIVE); LEUKOCYTE ESTERASE,URINE NEGATIVE (NEGATIVE); NITRITE,URINE NEGATIVE (NEGATIVE); PROTEIN,URINE NEGATIVE (NEGATIVE); URINE SPECIFIC GRAVITY 1.003; UROBILINOGEN,URINE NEGATIVE mg/dL (<2.0)
[2017-07-01 03:12] LABS: URINE AMPHETAMINES SCREEN NEGATIVE; URINE BARBITURATES SCREEN NEGATIVE; URINE BENZODIAZEPINES SCREEN NEGATIVE; URINE COCAINE SCREEN NEGATIVE; URINE MARIJUANA (THC) SCREEN NEGATIVE; URINE METHADONE SCREEN NEGATIVE; URINE PHENCYCLIDINE SCREEN NEGATIVE
--- NOTE | 2017-07-01 03:33 | Non Stress Test Report ---
Non Stress Test Datetime Report Generated by CPN: 07/01/2017 03:33 DEMOGRAPHIC EGA NST: 35.5 INDICATION Indication for Study: Decreased Movement MONITORING Monitor Explained: Monitor Explained; Test Explained; Patient Verbalized Understanding Time on Monitor: 07/01/2017 02:30 Time off Monitor: 07/01/2017 03:17 NST Duration: 47 NST INTERVENTIONS NST Interventions: PO Hydration; Reposition Patient Physician Notified NST: Dr Sheikh BABY A: [id number] BABY A Movement : Present Contraction Frequency : irr FHR Baseline : 130 Accelerations : 15X15 Decelerations : None Variability : Moderate 6-25bpm NST Review: Meets Criteria for Reactive NST NST Results: Reactive NST REPORT Report Trigger: Send Report
== END 2017-07-01 03:29 | disposition home or self-care (01) ==
LOC: LC 02:22
PROVIDERS: ATTEND Obstetrics & Gynecology Gynecology
PROC: 4A1HXCZ Monitoring of Products of Conception, Cardiac Rate, External Approach (ICD-10-PCS; principal; 2017-07-01)
DX: O36.8130 Decreased fetal movements, third trimester, not applicable or unspecified (principal); Z3A.35 35 weeks gestation of pregnancy
CPT/HCPCS: 59025; 80307; 81005

== ENCOUNTER 2017-07-04 12:49 | Outpatient (CLI) | payer MEDICAID | END 2017-07-04 13:27 | disposition home or self-care (01) | LOC: LC 12:49 | PROVIDERS: ATTEND Obstetrics & Gynecology | PROC: 4A1HXCZ Monitoring of Products of Conception, Cardiac Rate, External Approach (ICD-10-PCS; principal; 2017-07-04) | DX: O24.419 Gestational diabetes mellitus in pregnancy, unspecified control (principal); Z3A.36 36 weeks gestation of pregnancy | CPT/HCPCS: 59025 ==

== ENCOUNTER 2017-07-11 10:56 | Outpatient (CLI) | payer MEDICAID ==
--- NOTE | 2017-07-11 11:07 | Non Stress Test Report ---
Non Stress Test Datetime Report Generated by CPN: 07/11/2017 11:07 DEMOGRAPHIC EGA NST: 36.1 INDICATION Indication for Study: Diabetes Mellitus Indication for Study (NST) Other: Cristel Eric CNM VITAL SIGNS Temperature - NST: 98.9 Pulse - NST: 109 RESP - NST: 20 NBPSYS NST: 93 NBPDIA NST: 52 MONITORING Monitor Explained: Monitor Explained; Test Explained; Patient Verbalized Understanding Time on Monitor: 07/04/2017 13:00 Time off Monitor: 07/04/2017 13:23 NST Duration: 23 NST INTERVENTIONS NST Interventions: PO Hydration; Reposition Patient Physician Notified NST: H Eric CNM BABY A: [id number] BABY A Movement : Present Contraction Frequency : none FHR Baseline : 145 Accelerations : 15X15 Decelerations : None Variability : Moderate 6-25bpm NST Review: Meets Criteria for Reactive NST NST Review and Verified By : Martha Adkins RN NST Results: Reactive NST REPORT Report Trigger: Send Report
--- NOTE | 2017-07-11 12:57 | Non Stress Test Report ---
Non Stress Test Datetime Report Generated by CPN: 07/11/2017 12:57 DEMOGRAPHIC EGA NST: 37.1 INDICATION Indication for Study: Decreased Movement; Ordered by Provider Indication for Study (NST) Other: repeat nst VITAL SIGNS Temperature - NST: 98.8 Pulse - NST: 108 RESP - NST: 14 NBPSYS NST: 111 NBPDIA NST: 66 MONITORING Monitor Explained: Monitor Explained; Test Explained; Patient Verbalized Understanding Time on Monitor: 07/11/2017 11:07 Time off Monitor: 07/11/2017 12:45 NST Duration: 98 NST INTERVENTIONS NST Interventions: PO Hydration; Reposition Patient Physician Notified NST: Dr Balaji BABY A Movement : Present Contraction Frequency : occassional FHR Baseline : 135 Accelerations : 15X15 Decelerations : None Variability : Moderate 6-25bpm NST Review: Meets Criteria for Reactive NST NST Review and Verified By : Jose Kang RN NST Results: Reactive NST REPORT Report Trigger: Send Report
== END 2017-07-11 13:04 | disposition home or self-care (01) ==
LOC: LC 10:56
PROVIDERS: ATTEND Obstetrics & Gynecology
PROC: 4A1HXCZ Monitoring of Products of Conception, Cardiac Rate, External Approach (ICD-10-PCS; principal; 2017-07-11)
DX: O36.8130 Decreased fetal movements, third trimester, not applicable or unspecified (principal); O24.419 Gestational diabetes mellitus in pregnancy, unspecified control; Z3A.37 37 weeks gestation of pregnancy
CPT/HCPCS: 59025

== ENCOUNTER 2017-07-15 11:38 | Outpatient (CLI) | payer MEDICAID ==
--- NOTE | 2017-07-15 12:16 | Non Stress Test Report ---
Non Stress Test Datetime Report Generated by CPN: 07/15/2017 12:16 DEMOGRAPHIC Test Number: 1 EGA NST: 37.5 INDICATION Indication for Study: Gestational Hypertension MONITORING Monitor Explained: Monitor Explained; Test Explained; Patient Verbalized Understanding Time on Monitor: 07/15/2017 11:46 Time off Monitor: 07/15/2017 12:08 NST Duration: 22 NST INTERVENTIONS NST Interventions: PO Hydration Physician Notified NST: Bishop, CNM BABY A: [id number] BABY A Movement : Present Contraction Frequency : 0 FHR Baseline : 140 Accelerations : 15X15 Decelerations : None Variability : Moderate 6-25bpm NST Review: Meets Criteria for Reactive NST NST Review and Verified By : J.Field RN NST Results: Reactive NST REPORT Report Trigger: Send Report
== END 2017-07-15 12:10 | disposition home or self-care (01) ==
LOC: LC 11:38
PROVIDERS: ATTEND Obstetrics & Gynecology
PROC: 4A1HXCZ Monitoring of Products of Conception, Cardiac Rate, External Approach (ICD-10-PCS; principal; 2017-07-15)
DX: O13.3 Gestational [pregnancy-induced] hypertension without significant proteinuria, third trimester (principal); Z3A.37 37 weeks gestation of pregnancy
CPT/HCPCS: 59025

== ENCOUNTER 2017-07-22 16:30 | Outpatient (CLI) | payer MEDICAID ==
[2017-07-22 18:04] LABS: APPEARANCE,URINE SLIGHTLY-CLOUDY; BILIRUBIN,URINE NEGATIVE (NEGATIVE); COLOR,URINE AMBER; GLUCOSE, URINE NEGATIVE (NEGATIVE); KETONES,URINE NEGATIVE (NEGATIVE); LEUKOCYTE ESTERASE,URINE NEGATIVE (NEGATIVE); NITRITE,URINE NEGATIVE (NEGATIVE); PROTEIN,URINE NEGATIVE (NEGATIVE); URINE SPECIFIC GRAVITY 1.015
[2017-07-22 18:21] LABS: URINE AMPHETAMINES SCREEN NEGATIVE; URINE BARBITURATES SCREEN NEGATIVE; URINE BENZODIAZEPINES SCREEN NEGATIVE; URINE COCAINE SCREEN NEGATIVE; URINE MARIJUANA (THC) SCREEN NEGATIVE; URINE METHADONE SCREEN NEGATIVE; URINE PHENCYCLIDINE SCREEN NEGATIVE
--- NOTE | 2017-07-22 18:29 | Non Stress Test Report ---
Non Stress Test Datetime Report Generated by CPN: 07/22/2017 18:29 DEMOGRAPHIC EGA NST: 38.5 INDICATION Indication for Study: Ordered by Provider Indication for Study (NST) Other: labor check VITAL SIGNS Temperature - NST: 97.9 Pulse - NST: 100 RESP - NST: 16 NBPSYS NST: 112 NBPDIA NST: 70 MONITORING Monitor Explained: Monitor Explained; Test Explained; Patient Verbalized Understanding Time on Monitor: 07/22/2017 17:09 Time off Monitor: 07/22/2017 17:32 NST Duration: 23 NST INTERVENTIONS NST Interventions: PO Hydration Physician Notified NST: J. Gray, CNM BABY A: [id number] BABY A Movement : Present Contraction Frequency : 0 FHR Baseline : 145 Accelerations : 15X15 Decelerations : None Variability : Moderate 6-25bpm NST Review: Meets Criteria for Reactive NST NST Review and Verified By : KWADWO DEVI RN NST Results: Reactive NST REPORT Report Trigger: Send Report
== END 2017-07-22 18:55 | disposition home or self-care (01) ==
LOC: LC 16:30
PROVIDERS: ATTEND Obstetrics & Gynecology Gynecology
PROC: 4A1HXCZ Monitoring of Products of Conception, Cardiac Rate, External Approach (ICD-10-PCS; principal; 2017-07-22)
DX: O47.1 False labor at or after 37 completed weeks of gestation (principal); Z3A.38 38 weeks gestation of pregnancy
CPT/HCPCS: 59025; 80307; 81005

== ENCOUNTER 2017-07-23 08:14 | Inpatient (IN) | payer MEDICAID ==
[2017-07-23] MEDS ORDERED: OXYTOCIN/NORMAL SALINE 20 UNIT/1,000 ML RTUINJ IV PRN ×2 (08:25→09:49)
[2017-07-23] MEDS ORDERED: RINGERS SOLUTION,LACTATED 1,000 ML IV PRN (08:25)
[2017-07-23] MEDS ORDERED: RINGERS SOLUTION,LACTATED 300 ML IV ONE (08:25)
[2017-07-23] MEDS ORDERED: VANCOMYCIN HCL 1,000 MG in DEXTROSE 5%-WATER 250 ML IV SCH (08:30)
[2017-07-23] MEDS ORDERED: VANCOMYCIN HCL INJ 1000 MG VIAL ONE (08:52)
[2017-07-23 09:22] LABS: APPEARANCE,URINE CLEAR; BILIRUBIN,URINE NEGATIVE (NEGATIVE); COLOR,URINE YELLOW; GLUCOSE, URINE NEGATIVE (NEGATIVE); KETONES,URINE NEGATIVE (NEGATIVE); LEUKOCYTE ESTERASE,URINE NEGATIVE (NEGATIVE); NITRITE,URINE NEGATIVE (NEGATIVE); PROTEIN,URINE NEGATIVE (NEGATIVE); URINE SPECIFIC GRAVITY 1.006; UROBILINOGEN,URINE NEGATIVE mg/dL (<2.0)
[2017-07-23] MEDS ORDERED: OXYTOCIN/NORMAL SALINE 0 UNIT/0 ML RTUINJ ONE (09:34)
[2017-07-23 09:38] LABS: URINE AMPHETAMINES SCREEN NEGATIVE; URINE BARBITURATES SCREEN NEGATIVE; URINE MARIJUANA (THC) SCREEN NEGATIVE; URINE METHADONE SCREEN NEGATIVE; URINE PHENCYCLIDINE SCREEN NEGATIVE
[2017-07-23 09:47] LABS: URINE BENZODIAZEPINES SCREEN NEGATIVE; URINE COCAINE SCREEN NEGATIVE
[2017-07-23 10:09] LABS: ABSOLUTE EOSINOPHILS # (AUTO) 0.1 10^3/uL (0.0-0.6); ABSOLUTE MONOCYTES (AUTO) 0.6 10^3/uL (0.1-1.4); ABSOLUTE NEUT (AUTO) 6.1 10^3/uL (1.7-8.2); BASOPHILS % (AUTO) 0.2 % (0-2); EOSINOPHILS % (AUTO) 1.3 % (0-6); HEMATOCRIT 32.5 % (36.0-47.0); HEMOGLOBIN 11.1 g/dL (12.0-15.5); LYMPHOCYTES % (AUTO) 30.6 % (13-45); MEAN CORPUSCULAR HEMOGLOBIN 29.6 pg (27.0-33.4); MEAN CORPUSCULAR HGB CONC 34.3 g/dL (32.0-36.0); MEAN CORPUSCULAR VOLUME 86 fl (80-97); MONOCYTES % (AUTO) 5.6 % (3-13); PLATELET COUNT 302 10^3/uL (150-450); RED BLOOD COUNT 3.76 10^6/uL (3.72-5.28); RED CELL DISTRIBUTION WIDTH 14.1 % (11.5-14.0); SEGMENTED NEUTROPHILS % (AUTO) 62.3 % (42-78); TOTAL CELLS COUNTED % (AUTO) 100 %; WHITE BLOOD COUNT 9.9 10^3/uL (4.0-10.5)
--- NOTE | 2017-07-23 11:35 | Admission Physical ---
Datetime Report Generated by CPN: 07/23/2017 11:35 CURRENT ADMISSION Hx Assessment: The History has been Reviewed and is Current Chief Complaint: Scheduled Induction of Labor Indication for Induction: Maternal Diabetes Admit Impression : Term, Intrauterine Admit Plan: Admit to Unit; Initiate Labor Induction Protocol ALLERGIES Medication Allergies: Yes Medication Allergies: calcium carbonate (07/23/2017); hydrocodone bitartrate/SV/Anaphylaxis (07/23/2017); propoxyphene napsylate/SV/Anaphylaxis (07/23/2017); cyclobenzaprine HCl/Anaphylaxis (07/23/2017); NSAIDS (Non-Steroidal Anti-Inflamma (07/23/2017); Penicillins/SV/Anaphylaxis (07/23/2017); [place] And Derivatives/Anaphylaxis (07/23/2017); morphine/SV/Anaphylaxis (07/23/2017); codeine/SV/Anaphylaxis (07/23/2017); propoxyphene (07/23/2017); aspirin/SV/Anaphylaxis (07/23/2017); ibuprofen/SV/Anaphylaxis (07/23/2017); clindamycin/SV/Anaphylaxis (07/23/2017); azithromycin/SV/Anaphylaxis (07/23/2017); tramadol/SV/Anaphylaxis (07/23/2017); cyclobenzaprine (07/23/2017); latex/breaks out in r (07/23/2017); tomato/Anaphylaxis (07/23/2017); soy/SV/Anaphylaxis (07/23/2017) Latex: Latex Allergies OBSTETRICAL HISTORY EDC: 07/31/2017 00:00 : 3 Para: 2 Term: 2 : 0 SAB: 0 IAB: 0 Ectopic: 0 Livin Cesareans: 0 VBACs: 0 Multiple Births: 0 Gestational Diabetes: Yes Rh Sensitization: No Incompetent Cervix: No BECCA: No Infertility: No ART Treatment: No Uterine Anomaly: No IUGR: No Hx Previous C/S: No Macrosomia: Yes Hx Loss/Stillborn: No PIH: No Hx : No Placenta Previa/Abruption: No Depression/PP Depression: Yes PTL/PROM: No Post Hemorrhage: No Current Procedures: Ultrasound; NST Obstetrical History Comments: G1: 39.6 G2: pre-e, 39.5, PROM G3: current (pelvic rest) SEE RECORDS Alcohol: No Marijuana : No Cocaine: No Other Illicit Drugs: No Cigarettes: Never Smoker. [id number] MEDICAL HISTORY Diabetes: Yes Diabetes Type: Gestational Diabetes Blood Transfusion: No Pulmonary Disease (Asthma, TB): Yes Breast Disease: No Hypertension: No Orthopedic Shoe Fitter Surgery: No Heart Disease: No Hosp/Surgery: Yes Autoimmune Disorder: No Anesthetic Complications: No Kidney Disease: No Abnormal Pap Smear: No Neuro/Epilepsy: No Psychiatric Disorders: No Other Medical Diseases: No Hepatitis/Liver Disease: No Significant Family History: No Varicosities/Phlebitis: No Trauma/Violence : No Thyroid Dysfunction: No INFECTIOUS HISTORY Gonorrhea: No Genital Herpes: No Chlamydia: Yes Tuberculosis: No Syphilis: No Hepatitis: No HIV/AIDS Exposure: No Rash or Viral Illness: No HPV: Yes PHYSICAL EXAM General: Normal HEENT: Normal Neurologic: Normal Thyroid: Deferred Heart: Normal Lungs: Normal Breast: Normal Back: Normal Abdomen: Normal Genitourinary Exam: Normal Extremities: Normal DTRs: Normal Pelvic Type: Adequate Vital Signs: Reviewed VAGINAL EXAM Dilatation: 2 Effacement: 50 Station: -2 Contraction Comments: rare MEMBRANES Membranes: Intact FETUS A EGA: 38.6 Monitoring: External US FHR- Baseline: 145 Variability: Moderate 6-25bpm Accelerations: 15X15 Decelerations: None FHR Category: Category I Estimated Weight (gm): 3600 Presentation: Vertex Admit Comment: IOL, 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 cardiac issues Admit to l and d cooks cath placed without difficulty see record for complete hx multiple drug allergies gbs +, vanco desires epidural anticipate PLANS FOR LABOR AND DELIVERY Labor and Delivery: None Pain Management: None Feeding Preference: Breast Benefit of Breast Feed Discussed: Yes Circumcision: N/A INFORMED CONSENT Assignment: Brandy Carpio MD Signature: with User ID: Mikie : with User ID: [email or web address]
[2017-07-23] MEDS ORDERED: FENTANYL CITRATE INJ/PF 100 MCG/2 ML AMPUL ONE (11:58)
[2017-07-23] MEDS ORDERED: MISOPROSTOL 0.2 MG TABLET ONE (11:58)
[2017-07-23] MEDS ORDERED: EPHEDRINE SULFATE INJ 50 MG/1 ML AMPULE ONE (11:58)
[2017-07-23] MEDS ORDERED: LIDOCAINE 1% INJ-PF (10 MG/ML) 30 ML SDV ONE (11:59)
[2017-07-23] MEDS ORDERED: PHENYLEPHRINE HCL INJ/PF 10 MG/1 ML SDV ONE (11:59)
[2017-07-23] MEDS ORDERED: BUPIVACAINE HCL 0.25 % INJ/PF (2.5 MG/1 ML) 30 ML VIAL ONE (11:59)
[2017-07-23] MEDS ORDERED: FENTANYL/BUPIVACAINE/NS/PF 0 MCG/0 ML RTUINJ EPI ONE (11:59)
[2017-07-23] MEDS ORDERED: OXYTOCIN/NORMAL SALINE 20 UNIT/1,000 ML RTUINJ ONE (11:59)
[2017-07-23] MEDS ORDERED: BUPIVACAINE HCL/NS/PF 125 MG/100 ML RTUINJ EPI ONE (13:13)
[2017-07-23] MEDS ORDERED: LIDOCAINE 1.5%/EPINEPHRINE INJ-PF 30 ML SDV ONE (13:22)
[2017-07-23] MEDS ORDERED: BENZOCAINE/MENTHOL AEROSOL SPRAY 56 ML TOP PRN (17:33)
[2017-07-23] MEDS ORDERED: NA PHOS,M-B/NA PHOS,DI-BA (ADULT) 133 ML ENEMA PR PRN (17:33)
[2017-07-23] MEDS ORDERED: DIBUCAINE 1% OINTMENT 28 GM TP PRN (17:33)
[2017-07-23] MEDS ORDERED: DIPH/PERTUSS(ACELL)/TETANUS VAC/PF 0.5 ML SYR (>=10YO) IM PRN (17:33)
[2017-07-23] MEDS ORDERED: PSEUDOEPHEDRINE HCL 30 MG TABLET PO PRN (17:33)
[2017-07-23] MEDS ORDERED: MAGNESIUM HYDROXIDE SUSP 30 ML UDCUP PO PRN (17:33)
[2017-07-23] MEDS ORDERED: ACETAMINOPHEN 650 MG SUPP.RECT PR PRN (17:33)
[2017-07-23] MEDS ORDERED: DIPHENHYDRAMINE HCL 25 MG CAPSULE PO PRN (17:33)
[2017-07-23] MEDS ORDERED: NORMAL SALINE IV PRN (17:33)
[2017-07-23] MEDS ORDERED: PROMETHAZINE HCL 25 MG TABLET PO PRN (17:33)
[2017-07-23] MEDS ORDERED: ACETAMINOPHEN WITH CODEINE #3 TABLET PO PRN ×2 (17:33)
[2017-07-23] MEDS ORDERED: ZOLPIDEM TARTRATE 5 MG TABLET PO PRN (17:33)
[2017-07-23] MEDS ORDERED: OXYTOCIN IV PRN (17:33)
[2017-07-23] MEDS ORDERED: GLYCERIN/WITCH HAZEL LEAF 1 EACH MED..PAD TP PRN (17:33)
[2017-07-23] MEDS ORDERED: PROMETHAZINE HCL 25 MG SUPP.RECT PR PRN (17:33)
[2017-07-23] MEDS ORDERED: MEASLES,MUMPS&RUBELLA VACC/PF 0.5 ML VIAL SUBCUT PRN (17:33)
[2017-07-23] MEDS ORDERED: PROMETHAZINE HCL INJ 25 MG/1 ML VIAL IV PRN (17:33)
[2017-07-23] MEDS ORDERED: ACETAMINOPHEN 325 MG TABLET PO PRN (20:43)
[2017-07-23] MEDS ORDERED: IBUPROFEN 800 MG TABLET PO SCH (22:00)
[2017-07-24] MEDS: FAMOTIDINE 20 MG TABLET PO SCH ×3 (05:50→22:18)
[2017-07-24] MEDS: DOCUSATE SODIUM 100 MG CAPSULE PO SCH ×3 (05:50→19:10)
[2017-07-24 07:19] LABS: HEMATOCRIT 35.4 % (36.0-47.0); HEMOGLOBIN 11.8 g/dL (12.0-15.5); MEAN CORPUSCULAR HGB CONC 33.4 g/dL (32.0-36.0); MEAN CORPUSCULAR VOLUME 87 fl (80-97); PLATELET COUNT 298 10^3/uL (150-450); RED BLOOD COUNT 4.08 10^6/uL (3.72-5.28); WHITE BLOOD COUNT 16.2 10^3/uL (4.0-10.5)
[2017-07-24] MEDS: FERROUS SULFATE 325 MG TABLET PO SCH ×2 (09:13→19:10)
[2017-07-24] MEDS: PRENATAL VITAMIN W DHA CAPSULE PO SCH (09:13)
[2017-07-24] MEDS: SENNOSIDES/DOCUSATE 8.6-50 MG 1 EACH TABLET PO SCH (09:14)
[2017-07-24] MEDS: METFORMIN HCL 500 MG TABLET PO SCH ×2 (09:36→19:11)
[2017-07-24] MEDS ORDERED: (PENDING PHARMACY ID) (Prenatal Vits96/Iron Fum/Folic [Prenatal Tablet] 1 EACH) PO SCH (10:00)
--- NOTE | 2017-07-24 12:33 | PDOC PROGRESS REPORT ---
Subjective-OB Progress Note for:: 07/24/17 Subjective: 27yo G3 now P3 s/p repeat ppd 1. Ambulating, voiding and without difficulty. Bonding well with baby. Denies any concerns at this time. Physical Exam (OB) Vital Signs: Temp Pulse Resp BP Pulse Ox 98.4 F 72 16 119/73 99 07/23/17 20:02 07/23/17 20:02 07/23/17 20:02 07/23/17 20:02 07/23/17 20:02 Intake & Output 07/23/17 07/24/17 07/25/17 06:59 06:59 06:59 Weight 119.5 kg - General General Appearance: Appears well In distress: None - PIH/Pre-Eclampsia Headache: Absent Epigastric Pain: No Visual Changes: No - Episiotomy/Laceration Site Condition: Well Approximated - Lochia Lochia Amount: Small 10-25 ml Lochia Color: Rubra/Red - Abdomen Description: Soft, Round Hernia Present: No Fundal Description: Firm, Midline Fundal Height: u/u - u/2 - Respiratory Respiratory Status: No respiratory distress - Extremities Upper extremity: Normal inspection Lower extremities: Normal inspection Ankle: Normal - Neurological Cognition: Normal Orientation: AAOx4 - Psychological Associated symptoms: Normal affect, Normal mood Objective-Diagnostic Laboratory: 07/24/17 06:49 07/23/17 07/23/17 07/23/17 08:22 09:40 09:40 WBC 9.9 RBC 3.76 Hgb 11.1 L Hct 32.5 L MCV 86 MCH 29.6 MCHC 34.3 RDW 14.1 H Plt Count 302 Seg Neutrophils % 62.3 Lymphocytes % 30.6 Monocytes % 5.6 Eosinophils % 1.3 Basophils % 0.2 Absolute Neutrophils 6.1 Absolute Lymphocytes 3.0 Absolute Monocytes 0.6 Absolute Eosinophils 0.1 Absolute Basophils 0.0 Urine Color YELLOW Urine Appearance CLEAR Urine pH 6.0 Ur Specific [place] 1.006 Urine Protein NEGATIVE Urine Glucose (UA) NEGATIVE Urine Ketones NEGATIVE Urine Blood NEGATIVE Urine Nitrite NEGATIVE Ur Leukocyte Esterase NEGATIVE Blood Type A POSITIVE Antibody Screen NEGATIVE 07/24/17 06:49 WBC 16.2 H RBC 4.08 Hgb 11.8 L Hct 35.4 L MCV 87 MCH 29.0 MCHC 33.4 RDW 14.0 Plt Count 298 Seg Neutrophils % Lymphocytes % Monocytes % Eosinophils % Basophils % Absolute Neutrophils Absolute Lymphocytes Absolute Monocytes Absolute Eosinophils Absolute Basophils Urine Color Urine Appearance Urine pH Ur Specific [place] Urine Protein Urine Glucose (UA) Urine Ketones Urine Blood Urine Nitrite Ur Leukocyte Esterase Blood Type Antibody Screen Assessment and Plan(PN) - Assessment and Plan (1) Vaginal delivery Is this a current diagnosis for this admission?: Yes Plan: Routine pp care. (2) Qualifiers: Weeks of gestation: 38 weeks Qualified Code(s): Z3A.38 - 38 weeks gestation of Is this a current diagnosis for this admission?: Yes Plan: delivered - Time Spent with Patient Time with patient: Less than 15 minutes Medications reviewed and adjusted accordingly: Yes - Disposition Anticipated Discharge: Home Within: within 24 hours
[2017-07-24] MEDS: OXYCODONE-ACETAMINOPHEN 5-325 MG TABLET PO PRN (20:03)
[2017-07-25] MEDS: OXYCODONE-ACETAMINOPHEN 5-325 MG TABLET PO PRN (08:06)
--- NOTE | 2017-07-25 08:55 | PDOC DISCHARGE SUMMARY ---
Final Diagnosis Discharge Date: 07/25/17 - Final Diagnosis (1) Vaginal delivery Is this a current diagnosis for this admission?: Yes Discharge Data - Discharge Medication Prescriptions: Docusate Sodium [Colace 100 mg Capsule] 100 mg PO BID #60 capsule Ferrous Sulfate [Feosol 325 mg Tablet] 325 mg PO BID #60 tablet Home Medications: Vits96/Iron Fum/Folic [ Tablet] 1 each PO DAILY #30 tablet Docusate Sodium [Colace 100 mg Capsule] 100 mg PO BID #60 capsule 07/25/17 Ferrous Sulfate [Feosol 325 mg Tablet] 325 mg PO BID #60 tablet 07/25/17 Gestational Age: 38.6 Reason(s) for Admission: Induction of Labor, Gestional Diabetes Procedures: NST Intrapartum Procedure(s): Spontaneous Vaginal Delivery - [place] Data Baby 1 Female Home with Mother: Yes Complications: No - Diagnosis Test Laboratory: Temp Pulse Resp BP Pulse Ox 97.7 F 59 L 18 122/84 100 07/24/17 19:29 07/24/17 19:29 07/24/17 19:29 07/24/17 19:29 07/24/17 19:29 07/23/17 07/23/17 07/24/17 08:22 09:40 06:49 RBC 3.76 4.08 Hgb 11.1 L 11.8 L Hct 32.5 L 35.4 L Urine Opiates Screen NEGATIVE - Discharge information/Instructions Discharge Activity: Activity As Tolerated, Pelvic Rest, No tub bath Discharge Diet: Regular Disposition: HOME, SELF-CARE Follow up with: [facility] in: 3, Weeks
[2017-07-25 09:02] VITALS: BP 107/70
[2017-07-25] MEDS: DOCUSATE SODIUM 100 MG CAPSULE PO SCH ×2 (09:48→18:12)
[2017-07-25] MEDS: SENNOSIDES/DOCUSATE 8.6-50 MG 1 EACH TABLET PO SCH (09:49)
[2017-07-25] MEDS: FERROUS SULFATE 325 MG TABLET PO SCH ×2 (09:49→18:12)
[2017-07-25] MEDS: FAMOTIDINE 20 MG TABLET PO SCH (09:50)
[2017-07-25] MEDS: PRENATAL VITAMIN W DHA CAPSULE PO SCH (09:59)
--- NOTE | 2017-08-13 16:29 | Delivery Summary ---
Del Sum A-C Datetime Report Generated by CPN: 08/13/2017 16:28 DELIVERY PERSONNEL DELIVERY PERSONNEL: [id number] Delivery Doctor:: Brandy Carpio MD Labor and Delivery Nurse:: Jenny Chua RN Labor and Delivery Nurse:: MANFRED Desouza Student Observers:: Sid Cook RN Bioprocessing Manufacturing Technician/LICENSED OPTICAL DISPENSER: Kendell Pineda AUTOMOTIVE GLASS MECHANIC Additional Personnel: : Ashley Carpio RN MATERNAL INFORMATION Delivery Anesthesia: Epidural Medications After Delivery: Pitocin Bolus-Please Comment Meds After Delivery Comment: Pitocin 20 units in 1000ml nss open for bolus Estimated Blood Loss (ml): 100 Maternal Complications: None LABOR SUMMARY EDC: 07/31/2017 00:00 No. Babies in Womb: 1 Attempted: No Labor Anesthesia: Epidural LABOR INFORMATION Reason for Induction: Maternal Diabetes Reason for Induction- Other: GDM on metformin Onset of Labor: 07/23/2017 14:38 Complete Dilatation: 07/23/2017 17:13 Cervical Ripening Agents: Pride Balloon Oxytocin: Induction Group B Beta Strep: Positive- clinda resistant Antibiotics # of Doses: 1 Antibiotics Time of Last Dose: 907 Name of Antibiotic Given: Vancomycin Steroids Given: None Reason Steroids Not Administered: Not Applicable MEMBRANES Membranes Rupture Method: Artificial Rupture of Membranes: 07/23/2017 14:38 Length of Rupture (hr): 2.72 Amniotic Fluid Color: Clear Amniotic Fluid Amount: Small Amniotic Fluid Odor: Normal STAGES OF LABOR Stage 1 hr: 2 Stage 1 min: 35 Stage 2 hr: 0 Stage 2 min: 8 Stage 3 hr: 0 Stage 3 min: 4 Total Time in Labor hr: 2 Total Time in Labor min: 47 VAGINAL DELIVERY Episiotomy: None Episiotomy: None Laceration #1: None Laceration #1: None Laceration Extension #1: N/A Laceration Repair: Not Applicable Sponge Count Correct: N/A Sharps Count Correct: N/A CSECTION DELIVERY Primary Indication: N/A Secondary Indication: N/A CSection Incidence: N/A Labor: N/A Elective: N/A CSection Incision: N/A BABY A INFORMATION Delivery Date/Time: 07/23/2017 17:21 Method of Delivery: Vaginal Born in Route : No : N/A Forceps: N/A Vacuum Extraction: N/A Shoulder Dystocia : No PRESENTATION/POSITION BABY A Presentation: Cephalic Cephalic Presentation: Vertex Vertex Position: Right Occipital Anterior Breech Presentation: N/A PLACENTA INFORMATION BABY A Placenta Delivery Time : 07/23/2017 17:25 Placenta Method of Delivery: Spontaneous Placenta Status: Delivered SCORES BABY A Heart Rate 1 min: >100 bpm Resp Effort 1 min: Good Cry Reflex Irritability 1 min: Cough or Sneeze or Pulls Away Muscle Tone 1 min: Active Motion Color 1 min: Blue/Pale Resuscitation Effort 1 min: Tactile Stimulation SCORE 1 MIN: 8 Heart Rate 5 min: >100 bpm Resp Effort 5 min: Good Cry Reflex Irritability 5 min: Cough or Sneeze or Pulls Away Muscle Tone 5 min: Active Motion Color 5 min: Body [place], Extremities Blue Resuscitation Effort 5 min: N/A SCORE 5 MIN: 9 Resuscitation Effort 10 min: N/A INFANT INFORMATION BABY A Gestational Age at Delivery: 38.6 Gestational Status: Early Term- 37- 38.6 Weeks Outcome : Liveborn Condition : Stable Infant Sex: Female IDENTIFICATION BABY A Infant Verification Date/Time: 07/23/2017 17:31 ID Band Number: [id number] Mother's Name Verified: Yes Infant RN Verifying : KWADWO DEVI, RN Additional Verifying Personnel: D ADALI, U/S; LICENSED OPTICAL DISPENSER WEIGHT/LENGTH BABY A Infant Birthweight (gm): 3460 Weight (lb): 7 Infant Weight (oz): 10 Length (in): 20.00 Infant Length (cm): 50.80 CORD INFORMATION BABY A No. Cord Vessels: 3 Nuchal Cord : N/A Cord Blood Taken: Yes-For Storage (Mom's Blood type +) Suction: Mouth ASSESSMENT BABY A Infant Complications: None Physical Findings at Delivery: Within Normal Limits Infant Respirations: Appears Normal Skin to Skin: Yes Skin to Skin: Yes Golf Cart Attendant/ALS Called : No Infant Care By: Destin Carpio RN, J Joyce RN Transferred To: Remains with Mother BABY B INFORMATION : N/A SIGNATURES Signature: with User ID: [email or web address]
== END 2017-07-25 19:13 | disposition home or self-care (01) | DRG 775 ==
LOC: LR 08:14 → 2S 19:35
PROVIDERS: ADMIT Obstetrics & Gynecology; ATTEND Obstetrics & Gynecology
PROC: 10E0XZZ Delivery of Products of Conception, External Approach (ICD-10-PCS; principal; 2017-07-23)
DX: O24.425 Gestational diabetes mellitus in childbirth, controlled by oral hypoglycemic drugs (principal); Z68.41 Body mass index [BMI] 40.0-44.9, adult; O99.824 Streptococcus B carrier state complicating childbirth; O99.214 Obesity complicating childbirth; E66.9 Obesity, unspecified; O99.52 Diseases of the respiratory system complicating childbirth; J45.909 Unspecified asthma, uncomplicated; Z3A.38 38 weeks gestation of pregnancy; Z37.0 Single live birth
CPT/HCPCS: 36415; 80307; 81005; 85025; 85027; 86592; 86850; 86900; 86901; 94760; C1726; J2370; J2590; J3010; J3370; J3490

== ENCOUNTER 2017-07-30 21:20 | Emergency (ER) | payer MEDICAID ==
[2017-07-30] MEDS ORDERED: ACETAMINOPHEN 325 MG TABLET PO ONE (22:32)
[2017-07-30] MEDS ORDERED: NORMAL SALINE 1000 ML 1,000 ML IV ONE (23:54)
[2017-07-31] MEDS ORDERED: NORMAL SALINE 1000 ML 1,000 ML IV ONE (00:06)
[2017-07-31] MEDS ORDERED: DIPHENHYDRAMINE HCL 50 MG/ML VIAL IV ONE (00:06)
[2017-07-31] MEDS ORDERED: PROMETHAZINE HCL 25 MG TABLET PO ONE (00:07)
--- NOTE | 2017-07-31 00:08 | ER Document Report ---
ED Headache <MARCO,SHELIA - Last Filed: 07/31/17 03:05> - General Mode of Arrival: Ambulatory Information source: Patient TRAVEL OUTSIDE OF THE [place] IN LAST 30 DAYS: No <MOJGAN GAGE - Last Filed: 07/31/17 18:32> - General Chief Complaint: Headache, low back pain, L eye pain Stated Complaint: HEADACHES Time Seen by Provider: 07/30/17 23:38 Notes: Patient is a 27 year old female with a history of migraines presents to the emergency department complaining of headache and lower back pain onset 2 week ago worsening 1 week ago. Patient states she is 7 days post and states her headache worsened after she had an epidural. She states the pain is centered behind her left eye. She states she had an epidural for approximately 5 hours and was actively pushing for 1.5 hours. She states in the past IV fluids seemed to help with her migraines. Patient is currently breast feeding. (MOJGAN GAGE) - Related Data Allergies/Adverse Reactions: aspirin [Aspirin] Allergy (Severe, Verified 07/23/17 08:33) Anaphylaxis azithromycin [From Zithromax] Allergy (Severe, Verified 07/23/17 08:33) Anaphylaxis clindamycin [Clindamycin] Allergy (Severe, Verified 07/23/17 08:33) Anaphylaxis codeine [Codeine] Allergy (Severe, Verified 07/23/17 08:33) Anaphylaxis hydrocodone bitartrate [From Vicodin] Allergy (Severe, Verified 07/23/17 08:33) Anaphylaxis ibuprofen [Ibuprofen] Allergy (Severe, Verified 07/23/17 08:33) Anaphylaxis morphine [Morphine] Allergy (Severe, Verified 07/23/17 08:33) Anaphylaxis Penicillins Allergy (Severe, Verified 07/23/17 08:33) Anaphylaxis propoxyphene napsylate [From Darvocet-N 100] Allergy (Severe, Verified 07/23/17 08:33) Anaphylaxis soy [Soy] Allergy (Severe, Verified 07/23/17 08:33) Anaphylaxis tramadol [Tramadol] Allergy (Severe, Verified 07/23/17 08:33) Anaphylaxis [place] And Derivatives Allergy (Unknown, Verified 07/23/17 08:33) Anaphylaxis tomato [Tomato] Allergy (Unknown, Verified 07/23/17 08:33) Anaphylaxis calcium carbonate [From Aspirin Regimen Esteban/Calcium] Allergy (Verified 08:33) cyclobenzaprine [From Flexeril] Allergy (Verified 07/23/17 08:33) cyclobenzaprine HCl [From Flexeril] Allergy (Verified 07/23/17 08:33) Anaphylaxis latex [Latex] Allergy (Verified 07/23/17 08:33) breaks out in rash NSAIDS (Non-Steroidal Anti-Inflamma Allergy (Verified 07/23/17 08:33) propoxyphene Allergy (Verified 07/23/17 08:33) Past Medical History - General Information source: Patient - Social History Smoking Status: Never Smoker Chew tobacco use (# tins/day): No Frequency of alcohol use: None Drug Abuse: None Family History: Reviewed & Not Pertinent Patient has suicidal ideation: No Patient has homicidal ideation: No Pulmonary Medical History: Reports: Hx Asthma - no recent ER visit, Hx Bronchitis, Hx Pneumonia Neurological Medical History: Reports: Hx Migraine GI Medical History: Reports: Hx Gastroesophageal Reflux Disease Musculoskeltal Medical History: Reports Hx Musculoskeletal Trauma Psychiatric Medical History: Reports: Hx Depression Traumatic Medical History: Reports: Hx Fractures Past Surgical History: Reports: Hx Cholecystectomy, Hx Orthopedic Surgery - ankle x4, Hx Tonsillectomy - Immunizations Immunizations up to date: Yes Hx Diphtheria, Pertussis, Tetanus Vaccination: Yes - 10/12/13 Hx Pneumococcal Vaccination: 02/11/13 <MOJGAN GAGE - Last Filed: 07/31/17 18:32> Review of Systems - Review of Systems Constitutional: No symptoms reported EENT: No symptoms reported Cardiovascular: No symptoms reported Respiratory: No symptoms reported Gastrointestinal: No symptoms reported Genitourinary: No symptoms reported Female Genitourinary: No symptoms reported Musculoskeletal: See HPI Skin: No symptoms reported Hematologic/Lymphatic: No symptoms reported Neurological/Psychological: See HPI, Headaches -: Yes All other systems reviewed and negative <MOJGAN GAGE - Last Filed: 07/31/17 18:32> Physical Exam - HEENT Neck: Other - Posterior cervical muscles are tender to palpate, the scribe clicked on posterior cervical chain which is incorrect as that refers to the lymph nodes. <SHELIA LARA - Last Filed: 07/31/17 03:05> - General General appearance: Appears well, Alert In distress: None - HEENT Head: Normocephalic, Atraumatic, Tenderness - Parietal and temporal scalp muscles. Eyes: Normal Extraocular movements intact: Yes Pupils: PERRL Neck: Normal, Posterior cervical chain - Left, tender to palpation - Respiratory Respiratory status: No respiratory distress - Abdominal Inspection: Morbidly Obese - Extremities General upper extremity: Normal ROM General lower extremity: Normal ROM - Neurological Neuro grossly intact: Yes Cognition: Normal Orientation: AAOx4 [place] Coma Scale Eye Opening: Spontaneous [place] Coma Scale Verbal: Oriented [place] Coma Scale Motor: Obeys Commands [place] Coma Scale Total: 15 Speech: Normal - Psychological Associated symptoms: Normal affect, Normal mood - Skin Skin Temperature: Warm Skin Moisture: Dry Skin Color: Normal <MOJGAN GAGE - Last Filed: 07/31/17 18:32> - Vital signs Vitals: Temp Pulse Resp BP Pulse Ox 98.9 F 67 20 128/69 H 100 07/30/17 22:04 07/30/17 22:04 07/30/17 22:04 07/30/17 22:04 07/30/17 22:04 Course - Laboratory Result Diagrams: 07/31/17 01:50 07/31/17 01:50 <SHELIA LARA - Last Filed: 07/31/17 03:05> - Laboratory Result Diagrams: 07/31/17 01:50 07/31/17 01:50 <MOJGAN GAGE - Last Filed: 07/31/17 18:32> - Re-evaluation Re-evalutation: 07/31/17 03:05 Patient reports the headache is much improved. She feels ready to go home. ( SHELIA LARA) - Vital Signs Vital signs: Temp Pulse Resp BP Pulse Ox 98.5 F 70 20 125/73 100 07/31/17 03:10 07/31/17 03:10 07/31/17 03:10 07/31/17 03:10 07/31/17 03:10 - Laboratory Laboratory results interpreted by nd: 07/31/17 07/31/17 07/31/17 01:50 01:50 02:00 RDW 14.4 H Sodium 146.8 H Chloride 113 H ALT 53 H Alkaline Phosphatase 130 H Urine Blood LARGE H Ur Leukocyte Esterase SMALL H Discharge <SHELIA LARA - Last Filed: 07/31/17 03:05> <MOJGAN GAGE - Last Filed: 07/31/17 18:32> - Discharge Clinical Impression: Migraine headache Qualifiers: Migraine type: unspecified Status migrainosus presence: without status migrainosus Intractability: not intractable Qualified Code(s): G43.909 - Migraine, unspecified, not intractable, without status migrainosus Condition: Stable Disposition: HOME, SELF-CARE Additional Instructions: Migraine Headache The physician feels that your symptoms are due to a migraine attack. Migraines are caused by changes in the blood vessels of the head. Arteries go into spasm, often causing warning symptoms that a headache may begin soon. As the spasm goes away, the vessels dilate and throb, causing the pounding pain of a migraine headache. Migraines often cause nausea and vomiting. The treatment of headaches varies with severity and cause of pain. Not all headaches need pain shots -- in fact, there is evidence that using narcotics for headaches may make them worse in the long run. The physician will determine the therapy that's in your best interest for this particular headache. Medications are available that may prevent migraines, or stop them as they first occur. If one medication is not helpful, try another. If migraines are frequent, be patient -- follow the doctor's recommendations. Call the physician if you are worsening, or if new symptoms arise. Follow-up with your [facility] doctor tomorrow for recheck if your headache continues. RETURN TO THE EMERGENCY ROOM IF ANY NEW OR WORSENING SYMPTOMS. Referrals: MIGUEL DONG DO [Primary Care Provider] - Follow up as needed Scribjeana Attestation: 07/31/17 01:23 I personally performed the services described in the documentation, reviewed and edited the documentation which was dictated to the scribe in my presence, and it accurately records my words and actions. (SHELIA LARA) Scribe Documentation - Scribe Written by Chris:: Chris Baires, 07/31/2017 00:09 acting as scribe for :: Marco <MOJGAN GAGE - Last Filed: 07/31/17 18:32>
[2017-07-31] MEDS ORDERED: DEXTROSE 5%-LACTATED RINGERS 1,000 ML IV ONE (01:41)
[2017-07-31] MEDS ORDERED: FENTANYL CITRATE INJ/PF 100 MCG/2 ML AMPUL IV ONE (01:42)
[2017-07-31 02:03] LABS: ABSOLUTE BASOPHILS # (AUTO) 0.1 10^3/uL (0.0-0.2); ABSOLUTE EOSINOPHILS # (AUTO) 0.2 10^3/uL (0.0-0.6); ABSOLUTE LYMPHOCYTES (AUTO) 3.7 10^3/uL (0.5-4.7); ABSOLUTE MONOCYTES (AUTO) 0.5 10^3/uL (0.1-1.4); ABSOLUTE NEUT (AUTO) 5.1 10^3/uL (1.7-8.2); BASOPHILS % (AUTO) 0.7 % (0-2); EOSINOPHILS % (AUTO) 1.7 % (0-6); HEMOGLOBIN 12.9 g/dL (12.0-15.5); LYMPHOCYTES % (AUTO) 38.7 % (13-45); MEAN CORPUSCULAR HGB CONC 33.1 g/dL (32.0-36.0); MEAN CORPUSCULAR VOLUME 87 fl (80-97); MONOCYTES % (AUTO) 5.4 % (3-13); PLATELET COUNT 428 10^3/uL (150-450); RED BLOOD COUNT 4.47 10^6/uL (3.72-5.28); RED CELL DISTRIBUTION WIDTH 14.4 % (11.5-14.0); SEGMENTED NEUTROPHILS % (AUTO) 53.5 % (42-78); TOTAL CELLS COUNTED % (AUTO) 100 %; WHITE BLOOD COUNT 9.5 10^3/uL (4.0-10.5)
[2017-07-31 02:23] LABS: APPEARANCE,URINE CLEAR; BILIRUBIN,URINE NEGATIVE (NEGATIVE); COLOR,URINE STRAW; GLUCOSE, URINE NEGATIVE (NEGATIVE); KETONES,URINE NEGATIVE (NEGATIVE); LEUKOCYTE ESTERASE,URINE SMALL (NEGATIVE); NITRITE,URINE NEGATIVE (NEGATIVE); PROTEIN,URINE NEGATIVE (NEGATIVE); URINE SPECIFIC GRAVITY 1.002; UROBILINOGEN,URINE NEGATIVE mg/dL (<2.0)
[2017-07-31 02:24] LABS: ALANINE AMINOTRANSFERASE 53 U/L (9-52); ALBUMIN 3.5 g/dL (3.5-5.0); ALKALINE PHOSPHATASE 130 U/L (38-126); ANION GAP 12 (5-19); ASPARTATE AMINO TRANSFERASE 29 U/L (14-36); BILIRUBIN,DIRECT 0.3 mg/dL (0.0-0.4); BILIRUBIN,TOTAL 0.8 mg/dL (0.2-1.3); BLOOD UREA NITROGEN 8 mg/dL (7-20); CALCIUM 8.8 mg/dL (8.4-10.2); CARBON DIOXIDE 22 mmol/L (22-30); CHLORIDE 113 mmol/L (98-107); GLUCOSE 75 mg/dL (75-110); POTASSIUM 4.1 mmol/L (3.6-5.0); SODIUM 146.8 mmol/L (137-145); TOTAL PROTEIN 6.6 g/dL (6.3-8.2)
[2017-07-31 03:18] VITALS: BP 125/73
== END 2017-07-31 03:14 | disposition home or self-care (01) ==
LOC: ER 21:20
DX: O90.9 Complication of the puerperium, unspecified (principal); G43.909 Migraine, unspecified, not intractable, without status migrainosus; Z90.49 Acquired absence of other specified parts of digestive tract; M54.5 Low back pain; Z91.040 Latex allergy status; Z88.6 Allergy status to analgesic agent; Z88.0 Allergy status to penicillin; Z88.3 Allergy status to other anti-infective agents
CPT/HCPCS: 99284; 96361; 96374; 36415; 85025; 80053; 81001; J1200; J3010; J3490; J7030

== ENCOUNTER 2017-11-09 14:12 | Emergency (ER) | payer OTHER, MEDICAID ==
--- NOTE | 2017-11-09 17:59 | RADIOLOGY REPORT (SQ) ---
EXAM DESCRIPTION: KNEE LEFT 4 VIEW COMPLETED DATE/TIME: 11/09/2017 5:28 pm REASON FOR STUDY: left knee pain, drywall fell hitting knee COMPARISON: None. EXAM PARAMETERS: NUMBER OF VIEWS: Four views. TECHNIQUE: AP, lateral and both oblique radiographic images acquired of the left knee. LIMITATIONS: None. FINDINGS: MINERALIZATION: Normal. BONES: No acute fracture or dislocation. No worrisome bone lesions. JOINTS: No effusion. SOFT TISSUES: No significant soft tissue swelling. No radiopaque foreign body. OTHER: No other significant finding. IMPRESSION: NO FRACTURE. TECHNICAL DOCUMENTATION: JOB ID: [id number] [employer] ([place])- All Rights Reserved Reading location - IP/workstation name: [email or web address]
--- NOTE | 2017-11-09 18:05 | ER Document Report ---
HPI - HPI Patient complains to provider of: Left knee pain Onset: Other - 3 days Onset/Duration: Persistent Quality of pain: Achy Pain Level: 4 Context: Presents complaining of left knee pain from an injury that occurred 3 days ago. Patient did go to an urgent care 2 days ago and was evaluated for this issue. Patient complains of her splint rubbing a bruise on the lower part of her leg. Patient denies any new injuries. Associated Symptoms: Other - Left knee pain Exacerbated by: Standing, Movement, Walking Relieved by: Denies Similar symptoms previously: No Recently seen / treated by doctor: Yes - ROS ROS below otherwise negative: Yes Systems Reviewed and Negative: Yes All other systems reviewed and negative - REPRODUCTIVE Reproductive: DENIES: : - MUSCULOSKELETAL Musculoskeletal: REPORTS: Extremity pain - LLE - DERM Skin Color: Ecchymosis Skin Problems: None Past Medical History - General Information source: Patient - Social History Smoking Status: Never Smoker Frequency of alcohol use: None Drug Abuse: None Occupation: None Lives with: Family Family History: Reviewed & Not Pertinent Patient has suicidal ideation: No Patient has homicidal ideation: No Pulmonary Medical History: Reports: Hx Asthma - no recent ER visit, Hx Bronchitis, Hx Pneumonia Neurological Medical History: Reports: Hx Migraine Renal/ Medical History: Denies: Hx Peritoneal Dialysis GI Medical History: Reports: Hx Gastroesophageal Reflux Disease Musculoskeletal Medical History: Reports Hx Musculoskeletal Trauma Psychiatric Medical History: Reports: Hx Depression Traumatic Medical History: Reports: Hx Fractures Past Surgical History: Reports: Hx Cholecystectomy, Hx Orthopedic Surgery - ankle x4, Hx Tonsillectomy - Immunizations Immunizations up to date: Yes Hx Diphtheria, Pertussis, Tetanus Vaccination: Yes - 10/12/13 Hx Pneumococcal Vaccination: 02/11/13 Vertical Provider Document - CONSTITUTIONAL Agree With Documented VS: Yes Exam Limitations: No Limitations General Appearance: WD/WN, No Apparent Distress - INFECTION CONTROL TRAVEL OUTSIDE OF THE [place] IN LAST 30 DAYS: No - HEENT HEENT: Atraumatic, Normocephalic - NECK Neck: Normal Inspection - RESPIRATORY Respiratory: No Respiratory Distress - CARDIOVASCULAR Pulses: Normal: Dorsalis pedis - MUSCULOSKELETAL/EXTREMETIES Musculoskeletal/Extremeties: MAEW, Tender - Left knee with generalized tenderness, no effusion, no laxity with varus or valgus maneuvers. Patient with contusion to lateral aspect of the proximal calf. - NEURO Level of Consciousness: Awake, Alert, Appropriate Motor/Sensory: No Motor Deficit - DERM Integumentary: Warm, Dry Course - Vital Signs Vital signs: Temp Pulse Resp BP Pulse Ox 97.5 F 75 16 116/70 98 11/09/17 14:18 11/09/17 14:18 11/09/17 14:18 11/09/17 14:18 11/09/17 14:18 - Diagnostic Test Radiology reviewed: Reports reviewed Procedures - Immobilization Left Knee Pre-Proc Neuro Vasc Exam: Normal Immobilizer type: Knee immobilizer Performed by: PCT Post-Proc Neuro Vasc Exam: Normal Alignment checked and good: Yes Discharge - Discharge Clinical Impression: Left knee sprain Qualifiers: Encounter type: initial encounter Involved ligament of knee: unspecified ligament Qualified Code(s): S83.92XA - Sprain of unspecified site of left knee, initial encounter Contusion of leg, left Qualifiers: Encounter type: initial encounter Qualified Code(s): S80.12XA - Contusion of left lower leg, initial encounter Condition: Stable Disposition: HOME, SELF-CARE Instructions: Contusion ([facility]), Ice & Elevation ([facility]), Knee Immobilizing Splint ([facility]), Oral Narcotic Medication ([facility]), Sprained Knee ([facility]) Additional Instructions: Return immediately for any new or worsening symptoms Followup with your primary care provider, call tomorrow to make a followup appointment Weightbearing as tolerated Follow-up with orthopedics for further evaluation, call Saturday for an appointment Prescriptions: Oxycodone HCl/Acetaminophen [Percocet 5-325 mg Tablet] 1 tab PO ASDIR PRN #12 tablet PRN Reason: Referrals: [facility] ([facility]) [Provider Group] - 11/11/17
[2017-11-09 18:23] VITALS: BP 107/67
== END 2017-11-09 18:26 | disposition home or self-care (01) ==
LOC: ER 14:12
DX: S83.92XA Sprain of unspecified site of left knee, initial encounter (principal); S80.12XA Contusion of left lower leg, initial encounter; M25.562 Pain in left knee; W22.8XXA Striking against or struck by other objects, initial encounter; Y93.89 Activity, other specified; Y99.0 Civilian activity done for income or pay; J45.909 Unspecified asthma, uncomplicated
CPT/HCPCS: 99283; 73564; L1830

== ENCOUNTER 2017-11-28 15:14 | Emergency (ER) | payer OTHER, MEDICAID ==
--- NOTE | 2017-11-28 16:12 | ER Document Report ---
HPI - HPI Pain Level: 4 Notes: Patient is a 27-year-old female who presents to the ED for request of another knee immobilizing splint as hers broke. Patient states that she was here a couple weeks ago for knee pain status post injury. Patient states that she was evaluated by orthopedics in a different [place] 10 days ago and told her that she may have a tear in her knee. Patient states that she could not get a knee immobilizer from them because they are out of state and she is trying to find an orthopedic provider here. Patient states that she is still able to ambulate. The pain has not been worsening. She has not noticed any swelling, bruising, or deformity. No other concerns or complaints. Denies any headache, fever, URI, sore throat, chest pain, palpitations, syncope, cough, shortness of breath, wheeze, dyspnea, abdominal pain, nausea/vomiting/diarrhea, urinary retention, dysuria, hematuria, loss of control of bowel or bladder, numbness/ tingling, saddle anesthesia, muscle paralysis/weakness, or rash. - ROS Systems Reviewed and Negative: Yes All other systems reviewed and negative - REPRODUCTIVE Reproductive: DENIES: : Past Medical History - Social History Smoking Status: Unknown if Ever Smoked Family History: Reviewed & Not Pertinent Patient has suicidal ideation: No Patient has homicidal ideation: No Pulmonary Medical History: Reports: Hx Asthma - no recent ER visit, Hx Bronchitis, Hx Pneumonia Neurological Medical History: Reports: Hx Migraine Renal/ Medical History: Denies: Hx Peritoneal Dialysis GI Medical History: Reports: Hx Gastroesophageal Reflux Disease Musculoskeletal Medical History: Reports Hx Musculoskeletal Trauma Psychiatric Medical History: Reports: Hx Depression Traumatic Medical History: Reports: Hx Fractures Past Surgical History: Reports: Hx Cholecystectomy, Hx Orthopedic Surgery - ankle x4, Hx Tonsillectomy - Immunizations Immunizations up to date: Yes Hx Diphtheria, Pertussis, Tetanus Vaccination: Yes - 10/12/13 Hx Pneumococcal Vaccination: 02/11/13 Vertical Provider Document - CONSTITUTIONAL Agree With Documented VS: Yes Notes: PHYSICAL EXAMINATION: GENERAL: Well-appearing, well-nourished and in no acute distress. LUNGS: Breath sounds clear to auscultation bilaterally and equal. No wheezes rales or rhonchi. HEART: Regular rate and rhythm without murmurs, rubs, gallops. Musculoskeletal: Lt knee: No obvious swelling, ecchymosis, effusion, or deformity. FROM to passive/active and flexion >90 w/o difficulty or tenderness. Strength 5+/5. N/V intact distal. + mild lateral joint line tenderness. Ligamentous grossly stable, limited exam with larger leg size. Jo grossly negative. Patellar grind negative. No calf tenderness. Extremities: No cyanosis, clubbing, or edema b/l. Peripheral pulses 2+. Capillary refill less than 3 seconds. Reshma neg b/l. NEUROLOGICAL: Normal speech, limping gait. Normal sensory, motor exams PSYCH: Normal mood, normal affect. SKIN: Warm, Dry, normal turgor, no rashes or lesions noted. - INFECTION CONTROL TRAVEL OUTSIDE OF THE [place] IN LAST 30 DAYS: No Course - Re-evaluation Re-evalutation: 11/28/17 16:11 Patient is an afebrile, well-hydrated, 27-year-old female who presents to the ED with left knee pain. Vitals are acceptable without any significant tachycardia, tachypnea, or hypoxia. PE is otherwise unremarkable for any neurovascular compromise, obvious tendon/ligament rupture, obvious fracture/ dislocation, septic joint. Knee immobilizer given today. Patient declined any Tylenol or ice. Patient is nontoxic-appearing. Patient is able to ambulate and weight-bear although she is limping. No other labs or imaging warranted at this time based on H&P. Conservative measures otherwise for symptoms. Recheck with your PCM in 3-5 days. Schedule an appointment with orthopedics for further evaluation and management. Return to the ED with any worsening/ concerning symptoms otherwise as reviewed in discharge. Patient is in agreement. - Vital Signs Vital signs: Temp Pulse Resp BP Pulse Ox 97.8 F 60 20 119/73 99 11/28/17 15:23 11/28/17 15:23 11/28/17 15:23 11/28/17 15:23 11/28/17 15:23 Discharge - Discharge Clinical Impression: Left knee pain Qualifiers: Chronicity: acute Qualified Code(s): M25.562 - Pain in left knee Condition: Stable Disposition: HOME, SELF-CARE Additional Instructions: Rest, Ice, Compression, Elevation Use crutches/splint as directed Tylenol/ibuprofen as needed Light stretches daily Strength exercises as able Moist heat and massage may help F/u with your PCP in 3-5 days for a recheck Schedule an appointment with orthopedics for further evaluation and management Return to the ED with any worsening symptoms and/or development of fever, headache, chest pain, palpitations, syncope, shortness of breath, trouble breathing, abdominal pain, n/v/d, muscle weakness/paralysis, numbness/tingling, swelling, redness, or other worsening symptoms that are concerning to you. Referrals: [facility] ([facility] [Provider Group] - Follow up in 3-5 days
[2017-11-28 16:21] VITALS: BP 109/73
== END 2017-11-28 16:20 | disposition home or self-care (01) ==
LOC: ER 15:14
DX: M25.562 Pain in left knee (principal); Z90.49 Acquired absence of other specified parts of digestive tract
CPT/HCPCS: 99283; L1830

== ENCOUNTER 2018-06-29 11:24 | Emergency (ER) | payer OTHER, MEDICAID ==
[2018-06-29] MEDS ORDERED: ACETAMINOPHEN 325 MG TABLET PO ONE (13:00)
--- NOTE | 2018-06-29 13:47 | RADIOLOGY REPORT (SQ) ---
EXAM DESCRIPTION: KNEE LEFT 4 VIEW COMPLETED DATE/TIME: 06/29/2018 1:28 pm REASON FOR STUDY: Serafin howe knee pain COMPARISON: 11/08/2017 NUMBER OF VIEWS: Four views. TECHNIQUE: AP, lateral, and both oblique radiographic images acquired of the left knee. LIMITATIONS: None. FINDINGS: MINERALIZATION: Normal. BONES: No acute fracture or dislocation. No worrisome bone lesions. JOINT: No significant effusion. SOFT TISSUES: No soft tissue swelling. No radio-opaque foreign body. OTHER: No other significant finding. IMPRESSION: No fracture. TECHNICAL DOCUMENTATION: JOB ID: [id number] [place]-72 2010 [employer]- All Rights Reserved Reading location - IP/workstation name: [email or web address]
--- NOTE | 2018-06-29 13:51 | ER Document Report ---
HPI - HPI Patient complains to provider of: Left knee injury Time Seen by Provider: 06/29/18 12:50 Onset: Yesterday Onset/Duration: Sudden Quality of pain: Achy Pain Level: 5 Context: Patient states she has had previous injuries to the left knee in the past, and has had physical therapy multiple times in the past. Patient states that yesterday she turned and hit her knee on a trailer hitch on a truck. Patient complains of increased left knee pain, pain with weightbearing. Associated Symptoms: Other - Left knee pain. denies: Fever, Nausea Exacerbated by: Standing, Movement, Walking Relieved by: Denies Similar symptoms previously: Yes Recently seen / treated by doctor: No - ROS ROS below otherwise negative: Yes Systems Reviewed and Negative: Yes All other systems reviewed and negative - CONSTITUTIONAL Constitutional: DENIES: Fever - NEURO Neurology: DENIES: Weakness - GASTROINTESTINAL Gastrointestinal: DENIES: Nausea - REPRODUCTIVE Reproductive: DENIES: : - MUSCULOSKELETAL Musculoskeletal: REPORTS: Extremity pain. DENIES: Swelling - DERM Skin Color: Normal Skin Problems: None Past Medical History - General Information source: Patient - Social History Smoking Status: Never Smoker Frequency of alcohol use: Occasional Drug Abuse: None Occupation: [employer] Lives with: Family Family History: Reviewed & Not Pertinent Pulmonary Medical History: Reports: Hx Asthma - no recent ER visit, Hx Bronchitis, Hx Pneumonia Neurological Medical History: Reports: Hx Migraine Renal/ Medical History: Denies: Hx Peritoneal Dialysis GI Medical History: Reports: Hx Gastroesophageal Reflux Disease Musculoskeletal Medical History: Reports Hx Musculoskeletal Trauma Psychiatric Medical History: Reports: Hx Depression Traumatic Medical History: Reports: Hx Fractures Past Surgical History: Reports: Hx Cholecystectomy, Hx Orthopedic Surgery - ankle x4, Hx Tonsillectomy - Immunizations Immunizations up to date: Yes Hx Diphtheria, Pertussis, Tetanus Vaccination: Yes - 10/12/13 Hx Pneumococcal Vaccination: 02/11/13 Vertical Provider Document - CONSTITUTIONAL Agree With Documented VS: Yes Exam Limitations: No Limitations General Appearance: WD/WN, No Apparent Distress - INFECTION CONTROL TRAVEL OUTSIDE OF THE [place] IN LAST 30 DAYS: No - HEENT HEENT: Atraumatic, Normocephalic - NECK Neck: Normal Inspection, Supple. negative: Lymphadenopathy-Left, Ly mphadenopathy-Right - RESPIRATORY Respiratory: Breath Sounds Normal, No Respiratory Distress - CARDIOVASCULAR Cardiovascular: Regular Rate, Regular Rhythm - MUSCULOSKELETAL/EXTREMETIES Musculoskeletal/Extremeties: MAEW, Tender - Right knee joint tenderness to the entire knee. No obvious edema ecchymosis or effusion. Patellar tendon intact. No laxity with varus or valgus maneuvers., No Edema. negative: Edema, Eccymosis - NEURO Level of Consciousness: Awake, Alert, Appropriate Motor/Sensory: No Motor Deficit - DERM Integumentary: Warm, Dry Course - Re-evaluation Re-evalutation: 06/29/18 13:51 Patient has a history of previous left knee injury in which she has had to go to physical therapy for in the past. Patient states she does have an immobilizer at home as well as crutch patient is requesting Rl wrap be placed here today. - Vital Signs Vital signs: Temp Pulse Resp BP Pulse Ox 98.1 F 87 16 126/72 H 98 06/29/18 11:32 06/29/18 11:32 06/29/18 11:32 06/29/18 11:32 06/29/18 11:32 Procedures - Immobilization Left Knee Pre-Proc Neuro Vasc Exam: Normal Immobilizer type: Rl wrap Performed by: RN Post-Proc Neuro Vasc Exam: Normal Alignment checked and good: Yes Discharge - Discharge Clinical Impression: Left knee pain Qualifiers: Chronicity: unspecified Qualified Code(s): M25.562 - Pain in left knee Knee sprain Qualifiers: Encounter type: initial encounter Involved ligament of knee: unspecified ligament Laterality: left Qualified Code(s): S83.92XA - Sprain of unspecified site of left knee, initial encounter Condition: Stable Disposition: HOME, SELF-CARE Instructions: Rl Wrap ([facility]), Use of Crutches ([facility]), Ice & Elevation ([facility]), Sprained Knee ([facility]) Additional Instructions: Return immediately for any new or worsening symptoms Followup with your primary care provider, call tomorrow to make a followup appointment Take Tylenol [id number] as directed for pain relief Follow-up with orthopedics for further evaluation, call today to make a follow- up appointment Referrals: SHIRA BROOKE MD [Primary Care Provider] - Follow up as needed [facility] ([facility] [Provider Group] - Follow up tomorrow
[2018-06-29 14:10] VITALS: BP 132/70
== END 2018-06-29 14:00 | disposition home or self-care (01) ==
LOC: ER 11:24
DX: S83.92XA Sprain of unspecified site of left knee, initial encounter (principal); M25.562 Pain in left knee; W22.8XXA Striking against or struck by other objects, initial encounter; J45.909 Unspecified asthma, uncomplicated
CPT/HCPCS: 99283

== ENCOUNTER 2018-07-15 20:07 | Emergency (ER) | payer OTHER, MEDICAID ==
[2018-07-15] MEDS ORDERED: OXYCODONE-ACETAMINOPHEN 5-325 MG TABLET PO ONE (21:27)
[2018-07-15] MEDS ORDERED: PROMETHAZINE HCL 25 MG TABLET PO ONE (21:27)
--- NOTE | 2018-07-15 21:29 | ER Document Report ---
ED Medical Screen (RME) - General Chief Complaint: Abdominal Pain Stated Complaint: ABDOMINAL PAIN Time Seen by Provider: 07/15/18 21:26 Primary Care Provider: SHIRA BROOKE MD [Primary Care Provider] - Follow up as needed Notes: 28-year-old female chief complaint of right sided abdominal/pelvic pain for 1 week, reports it radiates to her flank, reports nausea. Denies vomiting or fever. Has had some vaginal bleeding for the past 2 days as well. Does report a history of cysts and cholecystectomy. Completed antibiotics last week for UTI. Denies history of kidney stones. TRAVEL OUTSIDE OF THE [place] IN LAST 30 DAYS: No - Related Data Allergies/Adverse Reactions: aspirin [Aspirin] Allergy (Severe, Verified 06/29/18 11:26) Anaphylaxis azithromycin [From Zithromax] Allergy (Severe, Verified 06/29/18 11:26) Anaphylaxis clindamycin [Clindamycin] Allergy (Severe, Verified 06/29/18 11:26) Anaphylaxis codeine [Codeine] Allergy (Severe, Verified 06/29/18 11:26) Anaphylaxis hydrocodone bitartrate [From Vicodin] Allergy (Severe, Verified 06/29/18 11:26) Anaphylaxis ibuprofen [Ibuprofen] Allergy (Severe, Verified 06/29/18 11:26) Anaphylaxis morphine [Morphine] Allergy (Severe, Verified 06/29/18 11:26) Anaphylaxis Penicillins Allergy (Severe, Verified 06/29/18 11:26) Anaphylaxis propoxyphene napsylate [From Darvocet-N 100] Allergy (Severe, Verified 06/29/18 11:26) Anaphylaxis soy [Soy] Allergy (Severe, Verified 06/29/18 11:26) Anaphylaxis tramadol [Tramadol] Allergy (Severe, Verified 06/29/18 11:26) Anaphylaxis Yancey And Derivatives Allergy (Unknown, Verified 06/29/18 11:26) Anaphylaxis tomato [Tomato] Allergy (Unknown, Verified 06/29/18 11:26) Anaphylaxis calcium carbonate [From Aspirin Regimen Esteban/Calcium] Allergy (Verified 06/29/18 11:26) cyclobenzaprine [From Flexeril] Allergy (Verified 06/29/18 11:26) cyclobenzaprine HCl [From Flexeril] Allergy (Verified 06/29/18 11:26) Anaphylaxis latex [Latex] Allergy (Verified 06/29/18 11:26) breaks out in rash NSAIDS (Non-Steroidal Anti-Inflamma Allergy (Verified 06/29/18 11:26) propoxyphene Allergy (Verified 06/29/18 11:26) Past Medical History - Social History Family history: None Pulmonary Medical History: Reports: Hx Asthma - no recent ER visit, Hx Bronchiti s, Hx Pneumonia Neurological Medical History: Reports: Hx Migraine Renal/ Medical History: Denies: Hx Peritoneal Dialysis GI Medical History: Reports: Hx Gastroesophageal Reflux Disease Musculoskeltal Medical History: Reports Hx Musculoskeletal Trauma Psychiatric Medical History: Reports: Hx Depression Traumatic Medical History: Reports: Hx Fractures Past Surgical History: Reports: Hx Cholecystectomy, Hx Orthopedic Surgery - ankle x4, Hx Tonsillectomy - Immunizations Immunizations up to date: Yes Hx Diphtheria, Pertussis, Tetanus Vaccination: Yes - 10/12/13 Physical Exam - Vital signs Vitals: Temp Pulse Resp BP Pulse Ox 98.6 F 77 16 125/82 100 07/15/18 20:47 07/15/18 20:47 07/15/18 20:47 07/15/18 20:47 07/15/18 20:47 - Abdominal Tenderness: Tender - Tender generally in the lower abdomen on the right side, exam limited by sitting position Course - Re-evaluation Re-evalutation: Patient looks well, exam is very limited by sitting position, symptoms of right lower quadrant and right sided pelvic pain have been going on for 1 week so I have less suspicion of appendicitis. I have greeted and performed a rapid initial assessment of this patient. A comprehensive ED assessment and evaluation of the patient, analysis of test results and completion of the medical decision making process will be conducted by additional ED providers. - Vital Signs Vital signs: Temp Pulse Resp BP Pulse Ox 98.6 F 77 16 125/82 100 07/15/18 20:47 07/15/18 20:47 07/15/18 20:47 07/15/18 20:47 07/15/18 20:47 Doctor's Discharge - Discharge Referrals: SHIRA BROOKE MD [Primary Care Provider] - Follow up as needed
[2018-07-15 22:08] LABS: APPEARANCE,URINE CLEAR; BILIRUBIN,URINE NEGATIVE (NEGATIVE); COLOR,URINE YELLOW; GLUCOSE, URINE NEGATIVE (NEGATIVE); KETONES,URINE NEGATIVE (NEGATIVE); LEUKOCYTE ESTERASE,URINE NEGATIVE (NEGATIVE); NITRITE,URINE NEGATIVE (NEGATIVE); PROTEIN,URINE NEGATIVE (NEGATIVE); URINE SPECIFIC GRAVITY 1.014; UROBILINOGEN,URINE NEGATIVE mg/dL (<2.0)
--- NOTE | 2018-07-15 22:16 | RADIOLOGY REPORT (SQ) ---
EXAM DESCRIPTION: US TRANSVAGINAL COMPLETED DATE/TME: 07/15/2018 21:27 CLINICAL HISTORY: 28 years, Female, right pelvic pain, nausea, hx cysts COMPARISON: Prior study from 06/05/2017 TECHNIQUE: 2-D grayscale images of the pelvis were performed. Additional Doppler and spectral waveforms are utilized. LIMITATIONS: None. FINDINGS: LMP was 12/2017. Uterus measures 7.8 x 5.3 x 4.6 cm in size. Cervix is closed, measuring 2.2 cm in length. In addition, a focal ill-defined area of masslike hypoechogenicity is noted about the anterior aspect of the uterine fundus, intramural in location. This measures 3.8 x 3.0 x 2.1 cm in size. Endometrial stripe thickness measures 1 to 2 mm. Right ovary measures 3.1 x 1.9 x 2.3 cm in size. It demonstrates normal low resistance arterial waveforms and echogenicity. Normal venous flow is also evident. Left ovary measures 1.8 x 2.9 x 2.2 cm in size. It also demonstrates normal low resistance arterial waveforms as well as venous flow. In addition, the left ovary appears to contain a small normal-appearing follicle. No significant free fluid is identified within the pelvis. IMPRESSION: No acute sonographic abnormality. Fibroid uterus. copyright 2010 [employer]- All Rights Reserved
[2018-07-15 22:33] LABS: ABSOLUTE BASOPHILS # (AUTO) 0.1 10^3/uL (0.0-0.2); ABSOLUTE EOSINOPHILS # (AUTO) 0.1 10^3/uL (0.0-0.6); ABSOLUTE LYMPHOCYTES (AUTO) 5.3 10^3/uL (0.5-4.7); ABSOLUTE MONOCYTES (AUTO) 0.6 10^3/uL (0.1-1.4); ABSOLUTE NEUT (AUTO) 6.7 10^3/uL (1.7-8.2); BASOPHILS % (AUTO) 0.9 % (0-2); EOSINOPHILS % (AUTO) 1.1 % (0-6); HEMATOCRIT 37.5 % (36.0-47.0); HEMOGLOBIN 12.8 g/dL (12.0-15.5); LYMPHOCYTES % (AUTO) 40.9 % (13-45); MEAN CORPUSCULAR HEMOGLOBIN 26.9 pg (27.0-33.4); MEAN CORPUSCULAR VOLUME 79 fl (80-97); MONOCYTES % (AUTO) 4.8 % (3-13); PLATELET COUNT 384 10^3/uL (150-450); RED BLOOD COUNT 4.75 10^6/uL (3.72-5.28); RED CELL DISTRIBUTION WIDTH 14.6 % (11.5-14.0); SEGMENTED NEUTROPHILS % (AUTO) 52.3 % (42-78); TOTAL CELLS COUNTED % (AUTO) 100 %; WHITE BLOOD COUNT 12.8 10^3/uL (4.0-10.5)
[2018-07-15 22:50] LABS: ALANINE AMINOTRANSFERASE 31 U/L (9-52); ALBUMIN 4.5 g/dL (3.5-5.0); ALKALINE PHOSPHATASE 69 U/L (38-126); ANION GAP 10 (5-19); ASPARTATE AMINO TRANSFERASE 17 U/L (14-36); BILIRUBIN,DIRECT 0.2 mg/dL (0.0-0.4); BILIRUBIN,TOTAL 0.6 mg/dL (0.2-1.3); BLOOD UREA NITROGEN 7 mg/dL (7-20); CALCIUM 9.7 mg/dL (8.4-10.2); CARBON DIOXIDE 25 mmol/L (22-30); CHLORIDE 106 mmol/L (98-107); GLUCOSE 85 mg/dL (75-110); POTASSIUM 3.9 mmol/L (3.6-5.0); SODIUM 141.2 mmol/L (137-145); TOTAL PROTEIN 7.6 g/dL (6.3-8.2)
[2018-07-15] MEDS ORDERED: NORMAL SALINE 1000 ML 1,000 ML IV ONE (23:17)
[2018-07-15] MEDS ORDERED: ONDANSETRON HCL INJ/PF 4 MG/2 ML SDV IV ONE (23:18)
[2018-07-15] MEDS ORDERED: FENTANYL CITRATE INJ/PF 100 MCG/2 ML AMPUL IV ONE (23:21)
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
--- NOTE | 2018-07-16 01:24 | RADIOLOGY REPORT (SQ) ---
CLINICAL HISTORY: RLQ pain COMPARISON: None. TECHNIQUE: CT ABDOMEN PELVIS WITH IV CONTRAST on 07/15/2018 11:16 PM CDT This exam was performed according to our departmental dose-optimization program, which includes automated exposure control, adjustment of the mA and/or kV according to patient size and/or use of iterative reconstruction technique. FINDINGS: Lower lungs are clear. Abdomen: The liver is normal in appearance. There is no biliary dilatation. Cholecystectomy was performed. The pancreas and spleen are normal in appearance. The adrenal glands and kidneys are unremarkable. Abdominal aorta is normal in course and caliber without aneurysm. There is no free air. There is no retroperitoneal adenopathy. Pelvis: There is no bowel obstruction. Urinary bladder is unremarkable. There is no free fluid. Uterus is normal in size. Appendix is normal. Skeleton: There are no acute osseous findings. No suspicious bony lesions. IMPRESSION: No acute inflammatory process. No renal or ureteral calculi.
[2018-07-16 02:17] VITALS: BP 112/64
== END 2018-07-16 02:17 | disposition home or self-care (01) ==
LOC: ER 20:07
DX: R10.31 Right lower quadrant pain (principal); M54.6 Pain in thoracic spine; R11.10 Vomiting, unspecified; R19.7 Diarrhea, unspecified; Z90.49 Acquired absence of other specified parts of digestive tract; Z88.6 Allergy status to analgesic agent; Z88.3 Allergy status to other anti-infective agents; Z88.0 Allergy status to penicillin; Z91.040 Latex allergy status
CPT/HCPCS: 99284; 96361; 96374; 96375; 36415; 85025; 81025; 80053; 81001; 76830; 93976; 74177; J3010; J2405; J7030

== ENCOUNTER 2018-11-10 09:04 | Emergency (ER) | payer OTHER, MEDICAID ==
[2018-11-10] MEDS ORDERED: LIDOCAINE 5% (700 MG) TRANSDERMAL ADH..PATCH TP ONE (10:31)
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
[2018-11-10 10:54] VITALS: BP 124/72
== END 2018-11-10 10:52 | disposition home or self-care (01) ==
LOC: ER 09:04
DX: S16.1XXA Strain of muscle, fascia and tendon at neck level, initial encounter (principal); R51 Headache; V89.2XXA Person injured in unspecified motor-vehicle accident, traffic, initial encounter; Z90.49 Acquired absence of other specified parts of digestive tract
CPT/HCPCS: 99283

== ENCOUNTER 2019-02-14 01:38 | Emergency (ER) | payer MEDICAID, OTHER ==
[2019-02-14] MEDS ORDERED: LIDOCAINE 1%/EPINEPHRINE INJ 20 ML VIAL INJ ONE (08:20)
[2019-02-14] MEDS ORDERED: ACETAMINOPHEN 325 MG TABLET PO ONE (08:23)
--- NOTE | 2019-02-14 15:19 | ER Document Report ---
ED General - General Chief Complaint: Laceration Stated Complaint: CUT FOOT Primary Care Provider: SHIRA BROOKE MD [Primary Care Provider] - 02/24/19 (in 10-14 days for suture removal or can always come to our ED or urgent care in 10-14 days ) TRAVEL OUTSIDE OF THE [place] IN LAST 30 DAYS: No - HPI Notes: 28f w/o prior pmh presents amb [facility] ED after sustaining cut to her medial ankle just caudal to medial malleolus while on phone w/ not realizing she was walking into area w/ her (new) boxcutter w/ blade open. says has had boostrix for work not too long ago. says she covered it and was able to control bleeding but did feel she bled a lot in house. didn't notice any arterial pulsation no numbness tingling weakness, color changes or swelling to area or distal to site of lac. says she knows blade was still fully intact after she sustained lac and she knows it was the only object her foot hit. denies any h/o ortho surgeries. she's been bearing weight w/o difficulty and hasn't had trouble w/ flex ext lateral rotaton of ankle in either direction only avoiding 2/2 pain at lac site. - Related Data Allergies/Adverse Reactions: aspirin [Aspirin] Allergy (Severe, Verified 11/10/18 09:36) Anaphylaxis azithromycin [From Zithromax] Allergy (Severe, Verified 11/10/18 09:36) Anaphylaxis clindamycin [Clindamycin] Allergy (Severe, Verified 11/10/18 09:36) Anaphylaxis codeine [Codeine] Allergy (Severe, Verified 11/10/18 09:36) Anaphylaxis hydrocodone bitartrate [From Vicodin] Allergy (Severe, Verified 11/10/18 09:36) Anaphylaxis ibuprofen [Ibuprofen] Allergy (Severe, Verified 11/10/18 09:36) Anaphylaxis morphine [Morphine] Allergy (Severe, Verified 11/10/18 09:36) Anaphylaxis Penicillins Allergy (Severe, Verified 11/10/18 09:36) Anaphylaxis propoxyphene napsylate [From Darvocet-N 100] Allergy (Severe, Verified 11/10/18 09:36) Anaphylaxis soy [Soy] Allergy (Severe, Verified 11/10/18 09:36) Anaphylaxis tramadol [Tramadol] Allergy (Severe, Verified 11/10/18 09:36) Anaphylaxis [place] And Derivatives Allergy (Unknown, Verified 11/10/18 09:36) Anaphylaxis tomato [Tomato] Allergy (Unknown, Verified 11/10/18 09:36) Anaphylaxis calcium carbonate [From Aspirin Regimen Esteban/Calcium] Allergy (Verified 11/10/18 09:36) cyclobenzaprine [From Flexeril] Allergy (Verified 11/10/18 09:36) cyclobenzaprine HCl [From Flexeril] Allergy (Verified 11/10/18 09:36) Anaphylaxis latex [Latex] Allergy (Verified 11/10/18 09:36) breaks out in rash NSAIDS (Non-Steroidal Anti-Inflamma Allergy (Verified 11/10/18 09:36) propoxyphene Allergy (Verified 11/10/18 09:36) Home Medications: Tylenol. Vitamins Past Medical History - General Information source: Patient - Social History Smoking Status: Never Smoker Frequency of alcohol use: Rare Drug Abuse: None Family History: Reviewed & Not Pertinent Patient has suicidal ideation: No Patient has homicidal ideation: No Pulmonary Medical History: Reports: Hx Asthma - no recent ER visit, Hx Bronchitis, Hx Pneumonia Neurological Medical History: Reports: Hx Migraine Renal/ Medical History: Denies: Hx Peritoneal Dialysis GI Medical History: Reports: Hx Gastroesophageal Reflux Disease Musculoskeletal Medical History: Reports Hx Musculoskeletal Trauma Psychiatric Medical History: Reports: Hx Depression Traumatic Medical History: Reports: Hx Fractures Past Surgical History: Reports: Hx Cholecystectomy, Hx Orthopedic Surgery - ankle x4, Hx Tonsillectomy - Immunizations Immunizations up to date: Yes Hx Diphtheria, Pertussis, Tetanus Vaccination: Yes - 10/12/13 Hx Pneumococcal Vaccination: 02/11/13 Review of Systems - Review of Systems Constitutional: No symptoms reported EENT: No symptoms reported Cardiovascular: No symptoms reported Respiratory: No symptoms reported Gastrointestinal: No symptoms reported Genitourinary: No symptoms reported Female Genitourinary: No symptoms reported Musculoskeletal: No symptoms reported. denies: Joint pain, Joint swelling, Ankle swelling Skin: No symptoms reported. denies: Change in color Hematologic/Lymphatic: No symptoms reported Neurological/Psychological: No symptoms reported. denies: Sensory change, Weakness, Paralysis, Numbness, Tingling Physical Exam - Vital signs Vitals: Temp Pulse Resp BP Pulse Ox 97.8 F 87 16 128/83 H 98 02/14/19 01:42 02/14/19 01:42 02/14/19 01:42 02/14/19 01:42 02/14/19 01:42 Interpretation: Normal - General General appearance: Appears well, Alert - HEENT Head: Normocephalic, Atraumatic Eyes: Normal Pupils: PERRL - Respiratory Respiratory status: No respiratory distress Chest status: Nontender Breath sounds: Normal Chest palpation: Normal - Cardiovascular Rhythm: Regular Heart sounds: Normal auscultation Murmur: No - Abdominal Inspection: Normal Distension: No distension Bowel sounds: Normal Tenderness: Nontender Organomegaly: No organomegaly - Back Back: Normal, Nontender - Extremities General upper extremity: Normal inspection, Nontender, Normal color, Normal ROM, Normal temperature General lower extremity: Normal inspection, Nontender, Normal color, Normal ROM, Normal strength, Normal temperature, Normal weight bearing, Other - Neurological Neuro grossly intact: Yes Cognition: Normal Orientation: AAOx4 [place] Coma Scale Eye Opening: Spontaneous [place] Coma Scale Verbal: Oriented [place] Coma Scale Motor: Obeys Commands [place] Coma Scale Total: 15 Speech: Normal Motor strength normal: LUE, RUE, LLE, RLE Sensory: Normal - Psychological Associated symptoms: Normal affect, Normal mood - Skin Skin Temperature: Warm Skin Moisture: Dry Skin Color: Normal Skin irregularity: Laceration - L medialankle caudal to medial malleolus ~x2cm total lonv. ~1mm deep, wide V-shape lac, w/o evidence of FB or contamination after thoroughly cleaned off blood and gently irrigated w/ sterile water 250 cc. under very minimxzal tension at rest slightly open 1mm but approximates easily/evenly w/ minimal manipulaton. no avulsions or areas requiring debridement. Course - Re-evaluation Re-evalutation: pt tolerated procedure well. did have to wait for me to do actual repair for some hours and thankfully understood delay 2/2 addressing pt care that couldn't wait longer. she was very understanding and patient. pre and post lac repair per below which she tolerated well, cont to have no n/v deficits on ext. exam. deferred xray to r/o fb as reliable historian and exam c/w hx and mech of Action. - Vital Signs Vital signs: Temp Pulse Resp BP Pulse Ox 98.1 F 75 16 120/81 98 02/14/19 16:20 02/14/19 16:20 02/14/19 16:20 02/14/19 16:20 02/14/19 16:20 Procedures - Laceration/Wound Repair Left Medial Foot Time completed: 15:00 Wound length (cm): 2 Wound's Depth, Shape: Superficial, Stellate Laceration pre-procedure: Sterile PPE donned, Betadine prep applied, Sterile drapes applied, Shur-Clens applied, Other - gentle irrig 250 cc sterile water Anesthetic type: 1% Lidocaine w/epi - 4ml Volume Anesthetic (mLs): 4 Wound explored: Clean Wound Repaired With: Sutures Suture Size/Type: 3:0, Nylon Number of Sutures: 2 Layer Closure?: No Post-procedure wound care: Sterile dressing applied - along w/ post op boot for comfort Post-procedure NV exam normal: Yes Complications: No Discharge - Discharge Clinical Impression: Foot laceration Qualifiers: Encounter type: initial encounter Laterality: left Qualified Code(s): S91.312A - Laceration without foreign body, left foot, initial encounter Disposition: HOME, SELF-CARE Additional Instructions: You have two 3.0 nylon sutures which will need to be removed in 10 to 14 days. This is a low risk site f and mechanism of injury or infection but please do not get in any standing water such as pools or hot tubs until this is healed. Watch for any redness around the area after days or any swelling or drainage after a week or so to suggest infection. Otherwise keep dry for the next 24 hours and then continue to shower and clean as usual. You can keep bacitracin or another ointment on to promote healing as well. Referrals: SHIRA BROOKE MD [Primary Care Provider] - 02/24/19 (in 10-14 days for suture removal or can always come to our ED or urgent care in 10-14 days )
[2019-02-14 16:24] VITALS: BP 120/81
== END 2019-02-14 16:00 | disposition home or self-care (01) ==
LOC: ER 01:38
PROC: 0HQNXZZ Repair Left Foot Skin, External Approach (ICD-10-PCS; principal; 2019-02-14)
DX: S91.312A Laceration without foreign body, left foot, initial encounter (principal); W26.0XXA Contact with knife, initial encounter
CPT/HCPCS: 99282; 12001; J3490

== ENCOUNTER 2019-08-30 16:39 | Emergency (ER) | payer OTHER ==
[2019-08-30 16:54] VITALS: BP 139/83
[2019-08-30] MEDS ORDERED: ONDANSETRON 4 MG TAB.RAPDIS PO ONE (17:19)
[2019-08-30] MEDS ORDERED: DEXAMETHASONE SOD PHOS INJ 10 MG/1 ML VIAL IM ONE (17:19)
--- NOTE | 2019-08-30 17:28 | ER Document Report ---
ED Allergic Reaction - General Chief Complaint: Allergic Reaction Stated Complaint: POSSIBLE ALLERGIC REACTION Time Seen by Provider: 08/30/19 17:14 Primary Care Provider: SHIRA BROOKE MD [Primary Care Provider] - Follow up as needed Mode of Arrival: Ambulatory Information source: Patient Notes: Patient is a 29-year-old female comes emergency room complaining of having allergic reaction. Patient states that she was bitten by fire ants day before yesterday. She has it on her left great toe which is now gotten swollen and puffy and red. She also has extreme itching going up the leg. Patient states she gets these reactions often and did not have her prednisone at home or her Zofran. She does state that when she gets these reactions as well she gets a severe migraine headache which is also started. She denies any shortness of breath or difficulty swallowing. TRAVEL OUTSIDE OF THE [place] IN LAST 30 DAYS: No - HPI Onset: Other - 2 days ago Onset/Duration: Sudden, Persistent Quality of pain: Achy Severity: Moderate Pain Level: 3 Identified cause: Yes Food exposure: Fire ants Swelling: Feet Associated symptoms: None Similar symptoms previously: Yes Recently seen / treated by doctor: No - Related Data Allergies/Adverse Reactions: aspirin [Aspirin] Allergy (Severe, Verified 11/10/18 09:36) Anaphylaxis azithromycin [From Zithromax] Allergy (Severe, Verified 11/10/18 09:36) Anaphylaxis clindamycin [Clindamycin] Allergy (Severe, Verified 11/10/18 09:36) Anaphylaxis codeine [Codeine] Allergy (Severe, Verified 11/10/18 09:36) Anaphylaxis hydrocodone bitartrate [From Vicodin] Allergy (Severe, Verified 11/10/18 09:36) Anaphylaxis ibuprofen [Ibuprofen] Allergy (Severe, Verified 11/10/18 09:36) Anaphylaxis morphine [Morphine] Allergy (Severe, Verified 11/10/18 09:36) Anaphylaxis Penicillins Allergy (Severe, Verified 11/10/18 09:36) Anaphylaxis propoxyphene napsylate [From Darvocet-N 100] Allergy (Severe, Verified 11/10/18 09:36) Anaphylaxis soy [Soy] Allergy (Severe, Verified 11/10/18 09:36) Anaphylaxis tramadol [Tramadol] Allergy (Severe, Verified 11/10/18 09:36) Anaphylaxis [place] And Derivatives Allergy (Unknown, Verified 11/10/18 09:36) Anaphylaxis tomato [Tomato] Allergy (Unknown, Verified 11/10/18 09:36) Anaphylaxis calcium carbonate [From Aspirin Regimen Esteban/Calcium] Allergy (Verified 11/10/18 09:36) cyclobenzaprine [From Flexeril] Allergy (Verified 11/10/18 09:36) cyclobenzaprine HCl [From Flexeril] Allergy (Verified 11/10/18 09:36) Anaphylaxis doxycycline Allergy (Verified 08/30/19 17:17) Anaphylaxis latex [Latex] Allergy (Verified 11/10/18 09:36) breaks out in rash NSAIDS (Non-Steroidal Anti-Inflamma Allergy (Verified 11/10/18 09:36) propoxyphene Allergy (Verified 11/10/18 09:36) Past Medical History - General Information source: Patient - Social History Smoking Status: Never Smoker Frequency of alcohol use: Rare Drug Abuse: None Family History: Reviewed & Not Pertinent Pulmonary Medical History: Reports: Hx Asthma - no recent ER visit, Hx Bronchitis, Hx Pneumonia Neurological Medical History: Reports: Hx Migraine Renal/ Medical History: Denies: Hx Peritoneal Dialysis GI Medical History: Reports: Hx Gastroesophageal Reflux Disease Musculoskeletal Medical History: Reports Hx Musculoskeletal Trauma Psychiatric Medical History: Reports: Hx Depression Traumatic Medical History: Reports: Hx Fractures Past Surgical History: Reports: Hx Cholecystectomy, Hx Orthopedic Surgery - ankle x4, Hx Tonsillectomy - Immunizations Immunizations up to date: Yes Hx Diphtheria, Pertussis, Tetanus Vaccination: Yes - 10/12/13 Hx Pneumococcal Vaccination: 02/11/13 Review of Systems - Review of Systems Constitutional: No symptoms reported EENT: No symptoms reported Cardiovascular: No symptoms reported Respiratory: No symptoms reported Gastrointestinal: No symptoms reported Genitourinary: No symptoms reported Female Genitourinary: No symptoms reported Musculoskeletal: No symptoms reported Skin: See HPI, Other - Cellulitis Hematologic/Lymphatic: No symptoms reported Neurological/Psychological: No symptoms reported Physical Exam - Vital signs Vitals: Temp Pulse Resp BP Pulse Ox 98.6 F 78 18 139/83 H 99 08/30/19 16:53 08/30/19 16:53 08/30/19 16:53 08/30/19 16:53 08/30/19 16:53 Interpretation: Hypertensive - Notes Notes: PHYSICAL EXAMINATION: GENERAL: Well-appearing, well-nourished and in no acute distress. HEAD: Atraumatic, normocephalic. EYES: Pupils equal round and reactive to light, extraocular movements intact, conjunctiva are normal. LUNGS: Breath sounds clear to auscultation bilaterally and equal. No wheezes rales or rhonchi. HEART: Regular rate and rhythm without murmurs Musculoskeletal: Normal range of motion, no pitting or edema. No cyanosis. NEUROLOGICAL: Normal speech, normal gait. Normal sensory, motor exams PSYCH: Normal mood, normal affect. SKIN examination patient's her concern is her left great toe. Noticeably patient has like for areas that appear to be ant bites. These have subsequently ruptured and are dried pustules. There is moderate warmth surrounding this area on the dorsum of the left great toe. Patient has good cap refill in the nailbeds of the toe. She does have flexion extension and there does not appear to be any extending cellulitis or lymphangitis at this time. All of it seems to be localized with some swelling and possible allergic reaction to the local area. Course - Re-evaluation Re-evalutation: 08/30/19 17:27 Given patient has a reaction that is documented and the steroids usually take care of it we will place her back on the steroids since she has no life- threatening presentations of angioedema. There is no systemic appearing reaction as well. However we will treat her with an antibiotic since the does appear to be localized cellulitis in the area. - Vital Signs Vital signs: Temp Pulse Resp BP Pulse Ox 98.6 F 78 18 139/83 H 99 08/30/19 16:53 08/30/19 16:53 08/30/19 16:53 08/30/19 16:53 08/30/19 16:53 Discharge - Discharge Clinical Impression: Cellulitis of great toe, left Allergic reaction Qualifiers: Encounter type: initial encounter Qualified Code(s): T78.40XA - Allergy, unspecified, initial encounter Condition: Stable Disposition: HOME, SELF-CARE Instructions: Acute Allergic Reaction ([facility]), Cellulitis ([facility]) Additional Instructions: Home and rest. Medications prescribed. As we discussed you can take all antibiotics until gone. Use the steroids as directed. Should you have any concerns or problems return to ER for reevaluation. Also suggest soaking your foot in warm soapy water 2-3 times a day. This will help dry out the swelling. You can also continue to take Benadryl 50 mg every 6 hours for any itching. Prescriptions: Sulfamethoxazole/Trimethoprim [Bactrim Ds Tablet] 1 each PO BID #14 tablet Prednisone 10 mg PO ASDIR 6 Days #1 tab.ds.pk Ondansetron [Zofran Odt 4 mg Tablet] 1 - 2 tab PO Q4H PRN #15 tab.rapdis PRN Reason: For Nausea/Vomiting Forms: Return to Work Referrals: SHIRA BROOKE MD [Primary Care Provider] - Follow up as needed
== END 2019-08-30 17:43 | disposition home or self-care (01) ==
LOC: ER 16:39
DX: L03.032 Cellulitis of left toe (principal); T78.40XA Allergy, unspecified, initial encounter; X58.XXXA Exposure to other specified factors, initial encounter
CPT/HCPCS: 99283; 96372; S0119; J1100

== ENCOUNTER 2019-09-27 12:34 | Emergency (ER) | payer OTHER ==
--- NOTE | 2019-09-27 13:20 | ER Document Report ---
ED Medical Screen (RME) - General Chief Complaint: Fall Injury Stated Complaint: FALL LEFT SIDE BODY PAIN Time Seen by Provider: 09/27/19 13:12 Primary Care Provider: SHIRA BROOKE MD [Primary Care Provider] - Follow up as needed Mode of Arrival: Ambulatory Information source: Patient Notes: 29-year-old female presents to ED for complaint fall with pain to the cervical spine, left shoulder back hip pain. She states she fell off the bed landed on the nightstand with her shoulder and neck and fell on the floor took at least 10 minutes to be able to get back up off the floor. She is alert oriented respirations regular nonlabored speaking in full sentences. She states she does not smoke rarely drinks and does not use any illicit drugs. I have ordered a CT of the neck with cervical collar x-rays of the ribs shoulder and hip. I have greeted and performed a rapid initial assessment of this patient. A comprehensive ED assessment and evaluation of the patient, analysis of test results and completion of medical decision making process will be conducted by an additional ED providers. TRAVEL OUTSIDE OF THE [place] IN LAST 30 DAYS: No - Related Data Allergies/Adverse Reactions: aspirin [Aspirin] Allergy (Severe, Verified 09/27/19 13:12) Anaphylaxis azithromycin [From Zithromax] Allergy (Severe, Verified 09/27/19 13:12) Anaphylaxis clindamycin [Clindamycin] Allergy (Severe, Verified 09/27/19 13:12) Anaphylaxis codeine [Codeine] Allergy (Severe, Verified 09/27/19 13:12) Anaphylaxis hydrocodone bitartrate [From Vicodin] Allergy (Severe, Verified 09/27/19 13:12) Anaphylaxis ibuprofen [Ibuprofen] Allergy (Severe, Verified 09/27/19 13:12) Anaphylaxis morphine [Morphine] Allergy (Severe, Verified 09/27/19 13:12) Anaphylaxis Penicillins Allergy (Severe, Verified 09/27/19 13:12) Anaphylaxis propoxyphene napsylate [From Darvocet-N 100] Allergy (Severe, Verified 09/27/19 13:12) Anaphylaxis soy [Soy] Allergy (Severe, Verified 09/27/19 13:12) Anaphylaxis tramadol [Tramadol] Allergy (Severe, Verified 09/27/19 13:12) Anaphylaxis [place] And Derivatives Allergy (Unknown, Verified 09/27/19 13:12) Anaphylaxis tomato [Tomato] Allergy (Unknown, Verified 09/27/19 13:12) Anaphylaxis calcium carbonate [From Aspirin Regimen Esteban/Calcium] Allergy (Verified 09/27/19 13:12) cyclobenzaprine [From Flexeril] Allergy (Verified 09/27/19 13:12) cyclobenzaprine HCl [From Flexeril] Allergy (Verified 09/27/19 13:12) Anaphylaxis doxycycline Allergy (Verified 09/27/19 13:12) Anaphylaxis latex [Latex] Allergy (Verified 09/27/19 13:12) breaks out in rash NSAIDS (Non-Steroidal Anti-Inflamma Allergy (Verified 09/27/19 13:12) propoxyphene Allergy (Verified 09/27/19 13:12) Past Medical History - Social History Family history: None Pulmonary Medical History: Reports: Hx Asthma - no recent ER visit, Hx Bronchitis, Hx Pneumonia Neurological Medical History: Reports: Hx Migraine Renal/ Medical History: Denies: Hx Peritoneal Dialysis GI Medical History: Reports: Hx Gastroesophageal Reflux Disease Musculoskeltal Medical History: Reports Hx Musculoskeletal Trauma Psychiatric Medical History: Reports: Hx Depression Traumatic Medical History: Reports: Hx Fractures Past Surgical History: Reports: Hx Cholecystectomy, Hx Orthopedic Surgery - ankle x4, Hx Tonsillectomy - Immunizations Immunizations up to date: Yes Hx Diphtheria, Pertussis, Tetanus Vaccination: Yes - 10/12/13 Physical Exam - Vital signs Vitals: Temp Pulse Resp BP Pulse Ox 98.2 F 84 16 152/83 H 100 09/27/19 12:40 09/27/19 12:40 09/27/19 12:40 09/27/19 12:40 09/27/19 12:40 Course - Vital Signs Vital signs: Temp Pulse Resp BP Pulse Ox 98.2 F 84 16 152/83 H 100 09/27/19 12:40 09/27/19 12:40 09/27/19 12:40 09/27/19 12:40 09/27/19 12:40 Doctor's Discharge - Discharge Referrals: SHIRA BROOKE MD [Primary Care Provider] - Follow up as needed
--- NOTE | 2019-09-27 13:56 | RADIOLOGY REPORT (SQ) ---
EXAM DESCRIPTION: CT CERVICAL SPINE WITHOUT IMAGES COMPLETED DATE/TIME: 09/27/2019 1:33 pm REASON FOR STUDY: Fall neck pain COMPARISON: None. TECHNIQUE: Axial images acquired through the cervical spine without intravenous contrast. Images re viewed with lung, soft tissue and bone windows. Reconstructed coronal and sagittal MPR images review ed. Images stored on PACS. All CT scanners at this facility use dose modulation, iterative reconstruction, and/or weight based d osing when appropriate to reduce radiation dose to as low as reasonably achievable (ALARA). [facility]: Dose Right [facility]: CareDose [facility]: Dose Right [facility]: Teradose 4D [facility]: Smart [place] RADIATION DOSE: CT Rad equipment meets quality standard of care and radiation dose reduction techniq ues were employed. CTDIvol: 21.4 mGy. DLP: 441 mGy-cm. mGy. LIMITATIONS: None. FINDINGS: ALIGNMENT: Anatomic. MINERALIZATION: Normal. VERTEBRAL BODIES: No fractures or dislocation. DISCS: No significant disc disease. FACETS, LATERAL MASSES, POSTERIOR ELEMENTS: No fractures. No dislocation. No acute findings. HARDWARE: None in the spine. VISUALIZED RIBS: No fractures. LUNG APICES AND SOFT TISSUES: No significant or acute findings. OTHER: No other significant finding. IMPRESSION: NO ACUTE OR SIGNIFICANT FINDINGS IN THE CERVICAL SPINE. TECHNICAL DOCUMENTATION: JOB ID: [id number] [place]-72 Quality ID # [id number]: Final reports with documentation of one or more dose reduction techniques (e.g., Au tomated exposure control, adjustment of the mA and/or kV according to patient size, use of iterative reconstruction technique) 2010 [employer]- All Rights Reserved Reading location - IP/workstation name: [email or web address]
--- NOTE | 2019-09-27 13:57 | RADIOLOGY REPORT (SQ) ---
EXAM DESCRIPTION: SHOULDER LEFT 2 OR MORE VIEWS IMAGES COMPLETED DATE/TIME: 09/27/2019 1:43 pm REASON FOR STUDY: Fall left upper back shoulder and hip pain COMPARISON: None. NUMBER OF VIEWS: Three views. TECHNIQUE: Internal rotation, external rotation, and Y view images acquired of the left shoulder. LIMITATIONS: None. FINDINGS: MINERALIZATION: Normal. BONES: No acute fracture. No worrisome bone lesions. JOINTS: No dislocation. VISUALIZED LUNGS AND RIBS: No pneumothorax. No rib fracture. SOFT TISSUES: No radiopaque foreign body. OTHER: No other significant finding. IMPRESSION: NO RADIOGRAPHIC EVIDENCE OF ACUTE INJURY. TECHNICAL DOCUMENTATION: JOB ID: [id number] [place]-72 2010 [employer]- All Rights Reserved Reading location - IP/workstation name: [email or web address]
--- NOTE | 2019-09-27 13:58 | RADIOLOGY REPORT (SQ) ---
EXAM DESCRIPTION: HIP LEFT AP/LATERAL IMAGES COMPLETED DATE/TIME: 09/27/2019 1:43 pm REASON FOR STUDY: Fall pain left hip COMPARISON: None. NUMBER OF VIEWS: Two views. TECHNIQUE: AP pelvis and additional frog-leg view of the left hip. LIMITATIONS: None. FINDINGS: MINERALIZATION: Normal. LEFT HIP: No fracture or dislocation. No worrisome bone lesions. RIGHT HIP: No fracture or dislocation. No worrisome bone lesions. PUBIS AND ISCHIUM: No fracture. PELVIS: No fracture. SACRUM: No fracture or dislocation. No worrisome bone lesions. LOWER LUMBAR SPINE: No fracture or dislocation. No worrisome bone lesions. No significant disc disea se. SOFT TISSUES: No findings. OTHER: No other significant finding. IMPRESSION: NO RADIOGRAPHIC EVIDENCE OF ACUTE INJURY. TECHNICAL DOCUMENTATION: JOB ID: [id number] [place]-72 2010 [employer]- All Rights Reserved Reading location - IP/workstation name: [email or web address]
--- NOTE | 2019-09-27 14:03 | RADIOLOGY REPORT (SQ) ---
EXAM DESCRIPTION: RIBS LEFT W/PA CHEST IMAGES COMPLETED DATE/TIME: 09/27/2019 1:43 pm REASON FOR STUDY: Fall left upper back shoulder and hip pain COMPARISON: None. TECHNIQUE: Frontal view of the chest and additional views of the left ribs acquired. NUMBER OF VIEWS: Three view. LIMITATIONS: None. FINDINGS: FRONTAL CXR: No pneumothorax. No pleural effusion. No atelectasis or infiltrates. RIBS: 6 mm avulsion from the anterior aspect of the left 8th rib. OTHER: No other significant finding. IMPRESSION: NO PNEUMOTHORAX. 6 mm avulsion from the anterior aspect of the left 8th rib. . COMMENT: SITE OF TRAUMA/COMPLAINT MARKED/STAMP COMPLETED: NO. TECHNICAL DOCUMENTATION: JOB ID: [id number] [place]-72 2010 [employer]- All Rights Reserved Reading location - IP/workstation name: [email or web address]
[2019-09-27] MEDS ORDERED: OXYCODONE-ACETAMINOPHEN 5-325 MG TABLET PO ONE (14:32)
--- NOTE | 2019-09-27 14:42 | ER Document Report ---
ED Fall - General Chief Complaint: Fall Injury Stated Complaint: FALL LEFT SIDE BODY PAIN Time Seen by Provider: 09/27/19 13:12 Primary Care Provider: SHIRA BROOKE MD [Primary Care Provider] - Follow up as needed Mode of Arrival: Ambulatory Information source: Patient Notes: 29-year-old female past medical history significant for migraines, asthma, arthritis presents to the emergency room complaining of left rib, neck, left shoulder, left hip pain after attempting to get out of bed and falling hitting her neck and shoulder on the nightstand and then landing on the floor on her left side. Denies any previous trauma or injury to her shoulder, hip, neck, or ribs. Denies any shortness of breath or difficulty breathing. Denies hitting her head. Denies any loss of consciousness. Took 650 mg of Tylenol without relief. Denies any chance of . TRAVEL OUTSIDE OF THE [place] IN LAST 30 DAYS: No - Related data Allergies/Adverse Reactions: aspirin [Aspirin] Allergy (Severe, Verified 09/27/19 13:12) Anaphylaxis azithromycin [From Zithromax] Allergy (Severe, Verified 09/27/19 13:12) Anaphylaxis clindamycin [Clindamycin] Allergy (Severe, Verified 09/27/19 13:12) Anaphylaxis codeine [Codeine] Allergy (Severe, Verified 09/27/19 13:12) Anaphylaxis hydrocodone bitartrate [From Vicodin] Allergy (Severe, Verified 09/27/19 13:12) Anaphylaxis ibuprofen [Ibuprofen] Allergy (Severe, Verified 09/27/19 13:12) Anaphylaxis morphine [Morphine] Allergy (Severe, Verified 09/27/19 13:12) Anaphylaxis Penicillins Allergy (Severe, Verified 09/27/19 13:12) Anaphylaxis propoxyphene napsylate [From Darvocet-N 100] Allergy (Severe, Verified 09/27/19 13:12) Anaphylaxis soy [Soy] Allergy (Severe, Verified 09/27/19 13:12) Anaphylaxis tramadol [Tramadol] Allergy (Severe, Verified 09/27/19 13:12) Anaphylaxis [place] And Derivatives Allergy (Unknown, Verified 09/27/19 13:12) Anaphylaxis tomato [Tomato] Allergy (Unknown, Verified 09/27/19 13:12) Anaphylaxis calcium carbonate [From Aspirin Regimen Esteban/Calcium] Allergy (Verified 09/27/19 13:12) cyclobenzaprine [From Flexeril] Allergy (Verified 09/27/19 13:12) cyclobenzaprine HCl [From Flexeril] Allergy (Verified 09/27/19 13:12) Anaphylaxis doxycycline Allergy (Verified 09/27/19 13:12) Anaphylaxis latex [Latex] Allergy (Verified 09/27/19 13:12) breaks out in rash NSAIDS (Non-Steroidal Anti-Inflamma Allergy (Verified 09/27/19 13:12) propoxyphene Allergy (Verified 09/27/19 13:12) Home Medications: iron. provera. benadryl Past Medical History - General Information source: Patient - Social History Smoking Status: Never Smoker Chew tobacco use (# tins/day): No Frequency of alcohol use: Rare Drug Abuse: None Family History: Reviewed & Not Pertinent Patient has homicidal ideation: No Pulmonary Medical History: Reports: Hx Asthma - no recent ER visit, Hx Bronchitis, Hx Pneumonia Neurological Medical History: Reports: Hx Migraine Renal/ Medical History: Denies: Hx Peritoneal Dialysis GI Medical History: Reports: Hx Gastroesophageal Reflux Disease Musculoskeletal Medical History: Reports Hx Musculoskeletal Trauma Psychiatric Medical History: Reports: Hx Depression Traumatic Medical History: Reports: Hx Fractures Past Surgical History: Reports: Hx Cholecystectomy, Hx Orthopedic Surgery - ankle x4, Hx Tonsillectomy - Immunizations Immunizations up to date: Yes Hx Diphtheria, Pertussis, Tetanus Vaccination: Yes - 10/12/13 Hx Pneumococcal Vaccination: 02/11/13 Review of Systems - Review of Systems Constitutional: No symptoms reported Cardiovascular: No symptoms reported Respiratory: No symptoms reported Gastrointestinal: No symptoms reported Musculoskeletal: Joint pain, Neck pain, Other - Left rib pain Hematologic/Lymphatic: No symptoms reported Neurological/Psychological: No symptoms reported -: Yes All other systems reviewed and negative Physical Exam - Vital signs Vitals: Temp Pulse Resp BP Pulse Ox 98.2 F 84 16 152/83 H 100 09/27/19 12:40 09/27/19 12:40 09/27/19 12:40 09/27/19 12:40 09/27/19 12:40 - General General appearance: Appears well, Alert In distress: Mild - HEENT Head: Normocephalic, Atraumatic. No: Carson's sign, [place]'s eyes Eyes: Normal Pupils: PERRL Ears: Normal External canal: Normal Tympanic membrane: Normal Sinus: Normal Pharynx: Normal Neck: Other - Nontender to palpation over the cervical spine. There is painful range of motion with lateral movement to the neck. No obvious deformity noted. - Respiratory Respiratory status: No respiratory distress Chest status: Nontender Breath sounds: Normal Chest palpation: Normal - Cardiovascular Rhythm: Regular Heart sounds: Normal auscultation Murmur: No Notes: Tenderness on palpation to the lateral left lower ribs. No deformity is noted. - Back Back: Normal, Nontender - Extremities General lower extremity: Normal inspection Shoulder: Tender - Tenderness over the left AC joint. Full range of motion with flexion, extension internal and external rotation to the left shoulder. There is no obvious deformity noted. Hip: Tender - Tenderness over the left iliac crest. Full range of motion with flexion, extension, internal and external rotation of the hip there is no deformity noted. Leg is not shortened. Ankle: Normal - Neurological Neuro grossly intact: Yes Cognition: Normal Orientation: AAOx4 [place] Coma Scale Eye Opening: Spontaneous [place] Coma Scale Verbal: Oriented [place] Coma Scale Motor: Obeys Commands [place] Coma Scale Total: 15 Speech: Normal Motor strength normal: LUE, RUE, LLE, RLE Sensory: Normal Course - Re-evaluation Re-evalutation: 09/27/19 14:45 Reviewed all x-rays and CAT scan results with patient. Aware of avulsion fracture at the left anterior rib #8. C-collar was removed. Patient had not received any medication since arrival to the emergency room. Patient with multiple allergies but states she can take Percocet. Patient will be given 1 p.o. Percocet in the emergency room and reevaluate her pain. 09/27/19 15:02 Patient is resting comfortably with decreased pain. Counseled take medications as prescribed. E force history was reviewed no history of narcotic abuse was noted. Okay for prescription. Outpatient follow-up with her primary care physician if not improving in 2 to 3 days. Patient was given strict return to the emergency room guidelines. Return for any new or worsening symptoms. All questions were answered. Patient verbalized understanding and agrees with plan of care. 09/27/19 15:04 - Vital Signs Vital signs: Temp Pulse Resp BP Pulse Ox 98.2 F 79 16 137/81 H 97 09/27/19 13:12 09/27/19 15:19 09/27/19 15:19 09/27/19 15:19 09/27/19 15:19 - Diagnostic Test Radiology reviewed: Reports reviewed Discharge - Discharge Clinical Impression: Left rib fracture Qualifiers: Encounter type: initial encounter Rib fracture type: single rib Fracture type: closed Qualified Code(s): S22.32XA - Fracture of one rib, left side, initial encounter for closed fracture Condition: Stable Disposition: HOME, SELF-CARE Instructions: Avulsion Fracture ([facility]) Additional Instructions: Take medications as prescribed. Outpatient follow-up with primary care physician if not improving in 2 to 3 days. Return to the emergency room for any new or worsening symptoms. Prescriptions: Oxycodone HCl/Acetaminophen [Percocet 5-325 mg Tablet] 1 tab PO Q4H PRN #12 tablet PRN Reason: For Pain Referrals: SHIRA BROOKE MD [Primary Care Provider] - Follow up as needed
[2019-09-27 15:21] VITALS: BP 137/81
== END 2019-09-27 15:19 | disposition home or self-care (01) ==
LOC: ER 12:34
DX: S22.32XA Fracture of one rib, left side, initial encounter for closed fracture (principal); R07.81 Pleurodynia; M54.2 Cervicalgia; M25.512 Pain in left shoulder; M25.552 Pain in left hip; W06.XXXA Fall from bed, initial encounter; Z88.8 Allergy status to other drugs, medicaments and biological substances; Z88.0 Allergy status to penicillin; Z88.1 Allergy status to other antibiotic agents; Z79.899 Other long term (current) drug therapy; J45.909 Unspecified asthma, uncomplicated
CPT/HCPCS: 72125; 99284

== ENCOUNTER → 2020-03-02 | Outpatient (CLI) | payer OTHER ==
--- NOTE | 2020-03-02 12:00 | ER RDC ASSESSMENT REPORT ---
Intake - In the Last 14 days Have you traveled outside [place]?: No Have you been in close contact with someone CONFIRMED: No Worked in Healthcare?: No - Symptoms Subjective Fever([place] feverish): No Chills: No Muscule Aches: No Runny Nose: Yes Sore Throat: Yes Cough (New or worsening chronic cough): Yes Shortness of breath: Yes Nausea or Vomiting: No Headache: Yes Abdominal Pain: No Diarrhea(3 or more loose stools in last 24 hours): No - Do you have any of the following Chronic lung disease: Asthma or emphysema or COPD: Yes Cystic Fibrosis: No Diabetes: No High Blood Pressure: No Cardiovascular Disease: No Chronic Kidney Disease: No Chronic Liver Disease: No Chronic blood disorder like Sickle Cell Disease: No Weak immune system due to disease or medication: No Neurologic condition that limits movement: No Developmental delay - Moderate to Severe: No Recent (within past 2 weeks) or current : No Morbid Obesity (>100 pounds over ideal weight): Yes - Objective Temperature: 97.1 F Pulse Rate: 78 Respiratory Rate: 18 Blood Pressure: 133/81 O2 Sat by Pulse Oximetry: 98 Objective: Given above, testing performed: flu, strep, covid Disposition: Home; Selfcare General - General Stated Complaint: flulike symptoms Mode of Arrival: Ambulatory Information source: Patient - HPI Notes: 29-year-old female presents to [facility] clinic for COVID-19 testing. Patient reports no known direct exposure to Covid positive individual. However, she states her 's coworker did test positive for the virus approximately a week and a half ago. Onset of symptoms 02/27/2020. Patient is reporting mild rhinorrhea, sore throat, dry cough, shortness of breath only with exertion, and headache. She does have underlying asthma but has not required inhaler use any more frequently than baseline. Denies any change in taste or smell, fever or chills, muscle aches, or GI upset. - Related Data Allergies/Adverse Reactions: aspirin [Aspirin] Allergy (Severe, Verified 09/27/19 13:12) Anaphylaxis azithromycin [From Zithromax] Allergy (Severe, Verified 09/27/19 13:12) Anaphylaxis clindamycin [Clindamycin] Allergy (Severe, Verified 09/27/19 13:12) Anaphylaxis codeine [Codeine] Allergy (Severe, Verified 09/27/19 13:12) Anaphylaxis hydrocodone bitartrate [From Vicodin] Allergy (Severe, Verified 09/27/19 13:12) Anaphylaxis ibuprofen [Ibuprofen] Allergy (Severe, Verified 09/27/19 13:12) Anaphylaxis morphine [Morphine] Allergy (Severe, Verified 09/27/19 13:12) Anaphylaxis Penicillins Allergy (Severe, Verified 09/27/19 13:12) Anaphylaxis propoxyphene napsylate [From Darvocet-N 100] Allergy (Severe, Verified 09/27/19 13:12) Anaphylaxis soy [Soy] Allergy (Severe, Verified 09/27/19 13:12) Anaphylaxis tramadol [Tramadol] Allergy (Severe, Verified 09/27/19 13:12) Anaphylaxis [place] And Derivatives Allergy (Unknown, Verified 09/27/19 13:12) Anaphylaxis tomato [Tomato] Allergy (Unknown, Verified 09/27/19 13:12) Anaphylaxis calcium carbonate [From Aspirin Regimen Esteban/Calcium] Allergy (Verified 09/27/19 13:12) cyclobenzaprine [From Flexeril] Allergy (Verified 09/27/19 13:12) cyclobenzaprine HCl [From Flexeril] Allergy (Verified 09/27/19 13:12) Anaphylaxis doxycycline Allergy (Verified 09/27/19 13:12) Anaphylaxis latex [Latex] Allergy (Verified 09/27/19 13:12) breaks out in rash NSAIDS (Non-Steroidal Anti-Inflamma Allergy (Verified 09/27/19 13:12) propoxyphene Allergy (Verified 09/27/19 13:12) Past Medical History - General Information source: Patient - Social History Smoking Status: Never Smoker Family History: Reviewed & Not Pertinent - Past Medical History Cardiac Medical History: Reports: None Pulmonary Medical History: Reports: Hx Asthma - no recent ER visit, Hx Bronchitis, Hx Pneumonia EENT Medical History: Reports: None Neurological Medical History: Reports: Hx Migraine Endocrine Medical History: Reports: None Renal/ Medical History: Reports: None. Denies: Hx Peritoneal Dialysis Malignancy Medical History: Reports: None GI Medical History: Reports: Hx Gastroesophageal Reflux Disease Musculoskeletal Medical History: Reports Hx Musculoskeletal Trauma Skin Medical History: Reports None Psychiatric Medical History: Reports: Hx Depression Traumatic Medical History: Reports: Hx Fractures Infectious Medical History: Reports: None Past Surgical History: Reports: Hx Cholecystectomy, Hx Orthopedic Surgery - ankle x4, Hx Tonsillectomy Physical Exam - General General appearance: Appears well, Alert In distress: None Notes: PHYSICAL EXAMINATION: GENERAL: Well-appearing and in no acute distress. HEAD: Atraumatic, normocephalic. EYES: sclera anicteric, conjunctiva are normal. ENT: nares patent. Moist mucous membranes. NECK: Normal range of motion, supple without lymphadenopathy. LUNGS: No increased work of breathing. Lung sounds CTAB and equal. No wheezes rales or rhonchi. HEART: Regular rate and rhythm without murmurs. ABDOMEN: Soft, nontender, normal bowel sounds, no guarding. EXTREMITIES: Normal range of motion, no pitting edema. No cyanosis. NEUROLOGICAL: A&O x 3. Normal speech. PSYCH: Normal mood, normal affect. SKIN: Warm, Dry, normal turgor, no rashes or lesions noted Patient Education/Counseling Counseling/Education: Patient presents with symptoms associated with possible Covid 19 infection. Patient does not have emergency worrying symptoms such as difficulty breathing, shortness of breath, chest pain, pressure, confusion or cyanosis. Patient appears suitable for discharge as vital signs are stable and patient is nontoxic in appearance. Good return precautions have been discussed with patient, patient verbalized understanding and is agreeable with discharge plan of care at this time. Guidance for worsening S/SX: As a person under investigation for Covid 19, the [place] department of Health and Human Services, division of public health advises you to adhere to the following guidance until your test results are reported to you. If your test result is positive, you will receive additional information from your provider and your local health department at that time. Remain at home until you are cleared by the health provider or public health authorities. Keep a log of visitors to your home, notify any visitors to your home of your isolation status. If you plan to move to a new address or leave the county, notify the local health department in your County. Call your doctor or seek care if you have an urgent medical need. Before seeking medical care, call ahead to get instructions from the provider before arriving at the medical office clinic or hospital. Notify them that you are being tested for the virus that causes Covid 19 so that arrangements can be made, as necessary, to prevent transmission to others in the healthcare setting. Next, notify the local health department in your county. If a medical emergency arises and you need to call 911, inform the first responders that you are being tested for the virus that causes Covid 19. Next, notify the local health department in your county. RDC Discharge - Discharge Clinical Impression: Encounter for screening laboratory testing for COVID-19 virus Upper respiratory infection Qualifiers: URI type: unspecified URI Qualified Code(s): J06.9 - Acute upper respiratory infection, unspecified Condition: Good Disposition: Home; Selfcare
[2020-03-02 12:01] VITALS: BP 133/81
[2020-03-02 12:50] LABS: A TYPE INFLUENZA AG NEGATIVE (NEGATIVE); B INFLUENZA AG NEGATIVE (NEGATIVE)
== END ==
LOC: RDC 09:59
PROVIDERS: ATTEND Registered Nurse
DX: Z20.822 Contact with and (suspected) exposure to COVID-19 (principal); J06.9 Acute upper respiratory infection, unspecified; R09.89 Other specified symptoms and signs involving the circulatory and respiratory systems; R05 Cough; J02.9 Acute pharyngitis, unspecified; R06.02 Shortness of breath; R51.9 Headache, unspecified; E66.01 Morbid (severe) obesity due to excess calories; J45.909 Unspecified asthma, uncomplicated; K21.9 Gastro-esophageal reflux disease without esophagitis; F32.9 Major depressive disorder, single episode, unspecified
CPT/HCPCS: 87070; 87880; 87635; 87804; 99202; 99211; C9803